=== PATIENT | male | born 1955 | race Caucasian/White ===

== ENCOUNTER 2018-05-15 11:08 | Emergency (ER) | payer OTHER ==
--- NOTE | 2018-05-15 11:16 | EDM.PDOC ---
ED HPI GENERAL MEDICAL PROBLEM - General Stated Complaint: AMB Time Seen by Provider: 05/15/18 11:12 - History of Present Illness INITIAL COMMENTS - FREE TEXT/NARRATIVE: HISTORY AND PHYSICAL: History of present illness: The patient is a [id number] male with a history of COPD diabetes hypertension hyperlipidemia and metastatic rectal cancer who presents via ambulance today for generalized profound weakness and inability to get into the car so he can return to [place] where he was 2 days ago. The patient is unable to offer much history but does say he was seen by Dr. Pratt days ago to reopen an abscess near his perirectal area and he is currently on antibiotics, Cipro and Flagyl. According to the he has had a long-standing fistula for at least 2-3 years and there is a residual suture down in that area but because the patient redeveloped an abscess Dr. Pratt opened a new area and it has been draining. The patient has had surgical intervention for his rectal cancer and has an ostomy. According to the she is not sure if he has been taking his antibiotics as they cannot find the Cipro. says that he has had generalized weakness for the last several days and it seems to be worse after seeing the doctor 2 days ago. Patient has received chemotherapy in the past which the last dose was April 16 here at our facility and started a new oral chemotherapy 2 days ago. The patient sees Dr. Hathaway locally but has not seen her recently. The patient also has a history of a DVT in his left leg for which she is on Lovenox but that was stopped several days ago so that cris Pratt could do the incision and drainage as well as to stay off of it for a few more days. The patient is not alert or oriented currently but can tell me that he did see the doctor 2 days ago and answer simple questions. The says that he has had episodic confusion for the last 1 week and she is concerned it has to do with the infection. She says that the abscess at his buttocks had been there for quite some time and he had been ignoring it and was resistant to go to [place] until 2 days ago. Patient has not been eating and according to the he performs self-care and she has not been involved with his care. She says that he has had several falls recently due to intermittent weakness and he only uses a walker and a scooter to get around. She says he has not had a fever at home and he has not had any vomiting and he has not complained of any head neck or back pain only pain at his buttocks area. She says that yesterday it took him 3 hours to get into the truck and he did not want any assistance. Today he was trying to transfer to the scooter and he could not even stand on his feet so the called ambulance to bring him here. She said she would've preferred to go to [place] but she was unable to get him into the car. Patient is currently on Lovenox subcutaneous for his DVT of his left leg but again that was stopped because of his procedure 2 days ago. It is unclear if he has resumed that. admits that he has had some falls in the recent past and he has not complained of any discomfort as a result of that. The patient had a PET scan here at our hospital on April 14 revealed mildly increasing pulmonary metastatic disease grossly stable osseous metastatic changes but a new focus of uptake within the left hepatic lobe of the liver consistent with new metastatic disease. The patient also had labs performed on April 28, CBC CMP and CEA , the first 2 were within normal limits. The CEA was 47.5. is unsure of his last tetanus shot Review of systems: As per history of present illness and below otherwise all systems reviewed and negative. Past medical history: As per history of present illness and as reviewed below otherwise noncontributory. Surgical history: As per history of present illness and as reviewed below otherwise noncontributory. Social history: No reported history of drug or alcohol abuse. Family history: As per history of present illness and as reviewed below otherwise noncontributory. Physical exam: General: Well developed well-nourished overweight male who looks older than stated age. Vital signs are noted by me. The patient is is intermittently confused on my questioning and is not sure of what year it is but he can tell me that he saw his doctor 2 days ago and had a procedure that drained an abscess. Overall the patient had dirty loathing, had grass and dirt through his clothing as well as dirt on his face, dirty underwear and had dirt and grass on his extremities consistent with not performing self-care area HEENT: Atraumatic, normocephalic, there is no evidence of any scalp defects or deformities and there is no tenderness, there are no midline step-offs in his defects of the cervical spine, pupils reactive, negative for conjunctival pallor or scleral icterus, mucous membranes tacky and there is a smell of ketones on the patient's breath, throat clear, neck supple, nontender, trachea midline. Lungs: Clear to auscultation, breath sounds equal bilaterally, chest nontender. Diminished breath sounds in the bases bilaterally but no defects deformities or tenderness or crepitus are appreciated patient has a port in the upper chest wall Heart: S1S2, regular rhythm but slightly tachycardic rate on my evaluation Abdomen: Soft, nondistended, nontender. Negative for masses or hepatosplenomegaly. NABS. The patient has an ostomy at his right mid abdomen with copious brown stool in the appliance Pelvis: Stable nontender. Genitourinary: Normal male with some pinkish ill-defined erythema at the perineal skin and scrotum but no overt lesions are seen. Rectal: At the perirectal area there is diffuse erythema and induration more notably on the left buttocks cheek. There is a string/suture seen in this region consistent with what the told me has been there for the last 2 years from an old fistula procedure. There is excoriation in this area induration and ill-defined swelling as well as discomfort. There is excoriation of the skin in the region and diffuse tenderness more at the left side. The patient is very dirty on this examination and nursing had to cleanse the area. I am unable to express any fluid or pus from any of these excoriated areas. Extremities: The patient has a right knee abrasion without defects deformities or tenderness and has a large left elbow abrasion without defects deformities or tenderness of the bony elbow. The left lower extremity is larger than the right and there is diffuse gross edema of this like consistent with his history of DVT. The foot is cooler on the left than on the right but the patient has good biphasic dorsalis pedis and posterior tibial pulses by Doppler the patient denies any tenderness to the left lower extremity the left knee or the left hip but there is some bruising at the posterior left hip and upper pelvis area without defects or deformities. There is some bruising in the same region but no tenderness. Neurovascular unremarkable. There are multiple bruises seen on the upper and lower extremities but more on the upper extremities of varying ages but there is no tenderness in any of these regions or deformities. Neuro: Awake, alert, oriented to time and place but intermittently can answer questions about recent history..The patient has profound weakness in all extremities but 2-3 throughout upper and lower extremities and the patient has diminished dorsi and plantar flexion left slightly greater than right. He can barely move in bed without assistance and is unable to transfer from cart to bed. Back: There are no midline step-offs or defects of the thoracic or lumbar spine and bruising is as described above at his left posterior hip area. Diagnostics EKG CBC CMP INR CPK UA urine culture blood cultures [address] scan of the head chest x-ray, x-rays of right knee right hip with pelvis left elbow Therapeutics: IV O2 monitor IV fluids Tdap Zosyn calcium gluconate, D50 and insulin, sodium bicarbonate Pablo catheter 1217: Discussed was discussed with Dr. Pratt at [facility] and he says that he is not surprised that Alejo is doing poorly as he has never to be taking good care of himself. He tells me that he did does open an area of induration because there was some possibility of fluctuance but he says that he likely has a larger deeper cavity or area that might be triggering sepsis that may need to be addressed depending on the family's wishes and patient's status. He says that from a surgical standpoint currently there is nothing that he can offer but I did tell him that I will be arranging for transfer for medical admission and he said he could be available as needed. He is aware I given him a dose of Zosyn and he agrees with that antibiotic choice I discussed with the and other family member at bedside the options of either transfer to [place] for admission here with hospice care. As hospice care was not and has not been discussed by any of the providers with the or with the patient she feels uncomfortable with making that decision at this point. I told her that I just wanted to give her all the options and she would prefer transfer to [place]. I do not feel that this case can be managed here at our hospital due to our limited resources and the significance of this patient's past medical history and recent events. Pablo was placed by nursing and immediately 1600 mL of urine has emerged. The Pablo was clamped off and will be reopened after some time. tells me that he did have issues with having small frequent urinations and that he discuss this when he was in [place] last time and that has not been explored as to the etiology. All lab tests have been reviewed as well as x-rays and CTs and all of this has been discussed with the family. Patient currently is in rhabdo and also has postobstructive uropathy and dehydration. There are multiple reasons for the kidney dysfunction as well as sepsis. I will discuss this case with the hospitalist at [facility] as he needs emergent transfer.We have Notified the flight team as the patient's clinical statement and findings mandate more emergent transfer and family is in agreement 1358: This case was discussed with the hospitalist at [facility], Dr. Moody who accepts the patient for care. She is aware of our treatment for the hyperkalemia with IV fluids and antibiotics and she is in agreement. All information and imaging to that hospital Critical care time excluding procedures: 45min Impression: Generalized weakness with new confusional state, dehydration , rhabdomyolysis, acute renal failure with hyperkalemia Multiple falls with multiple contusions and abrasions; postobstructive uropathy History of metastatic rectal cancer on oral chemotherapy; history of left leg DVT Definitive disposition and diagnosis as appropriate pending reevaluation and review of above. - Related Data Allergies Allergy/AdvReac Type Severity Reaction Status Date / Time No Known Allergies Allergy Verified 05/15/18 11:39 Home Meds: Home Meds Albuterol [Proair HFA] 1 inhalation IH ASDIRECTED PRN 08/23/14 [History] Metoprolol Tartrate 100 mg PO DAILY 08/23/14 [History] Tiotropium [Spiriva HandiHaler] 1 cap IH DAILY 08/23/14 [History] Albuterol [Proventil HFA] 2 puff INH ASDIRECTED 08/14/15 [History] Bevacizumab [Avastin] 25 mg IV 08/14/15 [History] Calcium Carbonate/Vitamin D3 [Os-Khai 500+D] 1 each PO BID 08/14/15 [History] Canagliflozin [Invokana] 08/14/15 [History] Canagliflozin [Invokana] 300 mg PO DAILY 08/14/15 [History] Fluticasone/Salmeterol [Advair 250-50] 2 puff INH BID 08/14/15 [History] Insulin Aspart [NovoLOG] 0 unit SUBCUT ACBED pen 08/14/15 [Rx] Liraglutide [Victoza 2-Rich] 0.6 mg SQ DAILY 08/14/15 [History] Liraglutide [Victoza 2-Rich] 1 injection INJECT DAILY 08/14/15 [History] Multivitamin [Multi-Vitamin Daily] 1 tab PO DAILY 08/14/15 [History] NS + KCl 20mEq/L [Normal Saline with 20 mEq KCl] 1,000 ml IV ASDIRECTED bag [Rx] Ondansetron [Zofran] 4 mg IVPUSH Q4H PRN #0 vial 08/14/15 [Rx] Sodium Chloride 0.9% [Normal Saline] 1,000 ml IV ASDIRECTED bag 08/14/15 [Rx] Sodium Chloride 0.9% [Normal Saline] 500 ml IV Q12H bag 08/14/15 [Rx] Sodium Chloride 0.9% [Saline Flush] 10 ml FLUSH ASDIRECTED PRN #0 syringe [Rx] Triamcinolone Acetonide [Triamcinolone Acetonide 0.025% Crm] 08/14/15 [History] Triamcinolone Acetonide [Triamcinolone Acetonide 0.025% Crm] 1 dose TOP BID [History] Vancomycin 1.5 gm IV Q12H sdv 08/14/15 [Rx] Vancomycin Pharmacy to Dose [Pharmacy to Dose - Vancomycin] 1 dose .XX ASDIRECTED each 08/14/15 [Rx] atorvaSTATin [Lipitor] 1 tab PO DAILY 08/14/15 [History] sitaGLIPtin Phos/Metformin HCl [Janumet 50-1,000 MG] 1 tab PO BID 08/14/15 [ History] sitaGLIPtin Phos/Metformin HCl [Janumet 50-1,000 MG] 1 tab PO TID 08/14/15 [ History] traMADol [Ultram] 50 mg PO Q6H PRN #0 tablet 08/14/15 [Rx] Acetaminophen [Tylenol] 500 mg PO Q4H PRN 05/15/18 [History] Potassium Gluconate [Potassium] 99 mg PO BID 05/15/18 [History] Past Medical History Cardiovascular History: Reports: Hypertension Other Gastrointestinal History: rectal CA with anal leakage Endocrine/Metabolic History: Reports: Diabetes, Type II Other Immunologic History: with lung cancer and currently on radiation therapy Other Oncologic History: Rectal CA (2007). Currently has bilateral lung and left hip tumor (tissue not bone per pt). - Past Surgical History GI Surgical History: Reports: Colostomy, Other (See Below) Musculoskeletal Surgical History: Reports: Hip Replacement ED ROS GENERAL - Review of Systems Review Of Systems: ROS reveals no pertinent complaints other than HPI. ED EXAM, GENERAL - Physical Exam Exam: See Below (see Dictation) Course - Vital Signs Last Recorded V/S: Last Vital Signs Temp 36.1 C 05/15/18 13:46 Pulse 99 05/15/18 13:46 Resp 22 H 05/15/18 13:46 BP 132/87 05/15/18 13:46 Pulse Ox 96 05/15/18 13:46 - Orders/Labs/Meds Orders: Active Orders 24 hr Category Date Time Status Cardiac Monitoring [RC] . DIRECTED Care 05/15/18 11:35 Active EKG Documentation Completion [RC] STAT Care 05/15/18 11:35 Active Oxygen Therapy, ED [RC] ASDIRECTED Care 05/15/18 11:35 Active Pulse Oximetry [RC] ASDIRECTED Care 05/15/18 11:35 Active Vaccines to be Administered [RC] PER UNIT ROUTINE Care 05/15/18 11:53 Active CULTURE BLOOD [BC] Stat Lab 05/15/18 11:56 Received CULTURE BLOOD [BC] Stat Lab 05/15/18 12:06 Received CULTURE URINE [RM] Stat Lab 05/15/18 13:14 Received UA W/MICROSCOPIC [URIN] Stat Lab 05/15/18 13:14 Ordered Sodium Chloride 0.9% [Normal Saline] 1,000 ml Med 05/15/18 13:46 Active IV STAT Sodium Chloride 0.9% [Saline Flush] Med 05/15/18 11:38 Active 10 ml FLUSH ASDIRECTED PRN Sodium Chloride 0.9% [Saline Flush] Med 05/15/18 11:38 Active 2.5 ml FLUSH ASDIRECTED PRN Blood Culture x2 Reflex Set [OM.PC] Stat Oth 05/15/18 11:36 Ordered Saline Lock Insert [OM.PC] Stat Oth 05/15/18 11:35 Ordered Medication Orders Sodium Chloride (Normal Saline) 1,000 mls @ 999 mls/hr IV STAT ONE Stop: 05/15/18 14:46 Last Admin: 05/15/18 13:55 Dose: 999 mls/hr Sodium Chloride (Saline Flush) 10 ml FLUSH ASDIRECTED PRN PRN Reason: Keep Vein Open Sodium Chloride (Saline Flush) 2.5 ml FLUSH ASDIRECTED PRN PRN Reason: Keep Vein Open Labs: Laboratory Tests 05/15/18 05/15/18 05/15/18 Range/Units 12:06 12:06 12:06 WBC 20.23 H (4.0-11.0) K/uL RBC 4.25 L (4.50-5.90) M/uL Hgb 11.6 L (13.0-17.0) g/dL Hct 35.3 L (38.0-50.0) % MCV 83.1 (80.0-98.0) fL MCH 27.3 (27.0-32.0) pg MCHC 32.9 (31.0-37.0) g/dL RDW Std Deviation 59.4 (28.0-62.0) fl RDW Coeff of Neyr 20 H (11.0-15.0) % Plt Count 343 (150-400) K/uL MPV 9.60 (7.40-12.00) fL Add Manual Diff YES Neutrophils % (Manual) 82 H (48.0-80.0) % Band Neutrophils % 12 % Lymphocytes % (Manual) 6 L (16.0-40.0) % Nucleated RBC % 0.1 /100WBC Absolute Seg Neuts 16.6 H (1.4-5.7) Band Neutrophils # 2.4 Lymphocytes # (Manual) 1.2 (0.6-2.4) Nucleated RBCs # 0 K/uL INR 1.04 Lactate (0.20-2.00) mmol/L Sodium 134 L (136-148) mmol/L Potassium 6.2 H (3.5-5.1) mmol/L Chloride 98 (98-107) mmol/L Carbon Dioxide 13.5 L (21.0-32.0) mmol/L BUN 95 H (7.0-18.0) mg/dL Creatinine 9.2 H (0.8-1.3) mg/dL Est Cr Clr Drug Dosing 8.82 mL/min Estimated GFR (MDRD) 5.9 ml/min Glucose 160 H (74-106) mg/dL Calcium 8.8 (8.5-10.1) mg/dL Total Bilirubin 0.7 (0.2-1.0) mg/dL AST 117 H (15-37) IU/L ALT 78 H (14-63) IU/L Alkaline Phosphatase 138 H (46-116) U/L Creatine Kinase 4107 H (26-308) U/L Total Protein 7.3 (6.4-8.2) g/dL Albumin 2.4 L (3.4-5.0) g/dL Globulin 4.9 H (2.0-3.5) g/dL Albumin/Globulin Ratio 0.5 L (1.3-2.8) Urine Color Urine Appearance Urine pH (5.0-8.0) Ur Specific [place] (1.001-1.035) Urine Protein (NEGATIVE) mg/dL Urine Glucose (UA) (NEGATIVE) mg/dL Urine Ketones (NEGATIVE) mg/dL Urine Occult Blood (NEGATIVE) Urine Nitrite (NEGATIVE) Urine Bilirubin (NEGATIVE) Urine Urobilinogen (<2.0) EU/dL Ur Leukocyte Esterase (NEGATIVE) Urine RBC (0-2/HPF) Urine WBC (0-5/HPF) Ur Epithelial Cells (NONE-FEW) Urine Bacteria (NEGATIVE) Fine Granular Casts (NEGATIVE) Urine Mucus (NONE-MOD) Ketones (NEG) 05/15/18 05/15/18 05/15/18 Range/Units 12:06 12:06 13:14 WBC (4.0-11.0) K/uL RBC (4.50-5.90) M/uL Hgb (13.0-17.0) g/dL Hct (38.0-50.0) % MCV (80.0-98.0) fL MCH (27.0-32.0) pg MCHC (31.0-37.0) g/dL RDW Std Deviation (28.0-62.0) fl RDW Coeff of Nery (11.0-15.0) % Plt Count (150-400) K/uL MPV (7.40-12.00) fL Add Manual Diff Neutrophils % (Manual) (48.0-80.0) % Band Neutrophils % % Lymphocytes % (Manual) (16.0-40.0) % Nucleated RBC % /100WBC Absolute Seg Neuts (1.4-5.7) Band Neutrophils # Lymphocytes # (Manual) (0.6-2.4) Nucleated RBCs # K/uL INR Lactate 2.0 (0.20-2.00) mmol/L Sodium (136-148) mmol/L Potassium (3.5-5.1) mmol/L Chloride (98-107) mmol/L Carbon Dioxide (21.0-32.0) mmol/L BUN (7.0-18.0) mg/dL Creatinine (0.8-1.3) mg/dL Est Cr Clr Drug Dosing mL/min Estimated GFR (MDRD) ml/min Glucose (74-106) mg/dL Calcium (8.5-10.1) mg/dL Total Bilirubin (0.2-1.0) mg/dL AST (15-37) IU/L ALT (14-63) IU/L Alkaline Phosphatase (46-116) U/L Creatine Kinase (26-308) U/L Total Protein (6.4-8.2) g/dL Albumin (3.4-5.0) g/dL Globulin (2.0-3.5) g/dL Albumin/Globulin Ratio (1.3-2.8) Urine Color YELLOW Urine Appearance CLOUDY Urine pH 5.5 (5.0-8.0) Ur Specific [place] >= 1.030 (1.001-1.035) Urine Protein TRACE (NEGATIVE) mg/dL Urine Glucose (UA) 100 H (NEGATIVE) mg/dL Urine Ketones TRACE H (NEGATIVE) mg/dL Urine Occult Blood LARGE H (NEGATIVE) Urine Nitrite NEGATIVE (NEGATIVE) Urine Bilirubin SMALL H (NEGATIVE) Urine Urobilinogen 0.2 (<2.0) EU/dL Ur Leukocyte Esterase TRACE (NEGATIVE) Urine RBC 6-7 (0-2/HPF) Urine WBC 4-5 (0-5/HPF) Ur Epithelial Cells MODERATE (NONE-FEW) Urine Bacteria FEW (NEGATIVE) Fine Granular Casts 1-2 (NEGATIVE) Urine Mucus HEAVY (NONE-MOD) Ketones SMALL H (NEG) Meds: Medications Generic Name Dose Route Start Last Admin Trade Name Freq PRN Reason Stop Dose Admin Sodium Chloride 1,000 mls @ 999 mls/hr 05/15/18 13:46 05/15/18 13:55 Normal Saline IV 05/15/18 14:46 999 mls/hr STAT ONE Administration Sodium Chloride 10 ml 05/15/18 11:38 Saline Flush FLUSH ASDIRECTED PRN Keep Vein Open Sodium Chloride 2.5 ml 05/15/18 11:38 Saline Flush FLUSH ASDIRECTED PRN Keep Vein Open Discontinued Medications Generic Name Dose Route Start Last Admin Trade Name Freq PRN Reason Stop Dose Admin Calcium Gluconate 1 gm 05/15/18 13:46 05/15/18 14:00 Calcium Gluconate IVPUSH 05/15/18 13:47 1 gm ONETIME ONE Administration Dextrose/Water 50 ml 05/15/18 13:48 05/15/18 14:00 Dextrose 50% In Water IVPUSH 05/15/18 13:49 50 ml ONETIME ONE Administration Diphtheria/Tetanus/Acell Pertussis 0.5 ml 05/15/18 11:53 05/15/18 13:34 Adacel IM 05/15/18 11:54 0.5 ml .ONCE ONE Administration Piperacillin Sod/Tazobactam 100 mls @ 100 mls/hr 05/15/18 11:38 05/15/18 12: 00 Sod 4.5 gm/ Sodium Chloride IV 05/15/18 12:37 100 mls/hr ONETIME ONE Administration Sodium Chloride 1,000 mls @ 999 mls/hr 05/15/18 11:38 05/15/18 12:00 Normal Saline IV 05/15/18 12:38 999 mls/hr STAT ONE Administration Insulin Human Regular 10 unit 05/15/18 13:48 05/15/18 14:00 Novolin R IVPUSH 05/15/18 13:49 10 units ONETIME ONE Administration Protocol Sodium Bicarbonate 50 meq 05/15/18 13:48 05/15/18 14:00 Sodium Bicarbonate 8.4% IVPUSH 05/15/18 13:49 50 meq ONETIME ONE Administration Departure - Departure Time of Disposition: 14:13 Disposition: DC/Tfer to Acute Hospital 02 Condition: Fair Clinical Impression: Hyperkalemia, Metastasis from rectal cancer Sepsis Qualifiers: Sepsis type: sepsis due to unspecified organism Qualified Code(s): A41.9 - Sepsis, unspecified organism Rhabdomyolysis Qualifiers: Rhabdomyolysis type: traumatic Encounter type: initial encounter Qualified Code (s): T79.6XXA - Traumatic ischemia of muscle, initial encounter Acute renal failure Qualifiers: Acute renal failure type: unspecified Qualified Code(s): N17.9 - Acute kidney failure, unspecified - Discharge Information Referrals: PCP,None [Primary Care Provider] - - My Orders Last 24 Hours: My Active Orders 05/15/18 11:35 Cardiac Monitoring [RC] . DIRECTED EKG Documentation Completion [RC] STAT Oxygen Therapy, ED [RC] ASDIRECTED Pulse Oximetry [RC] ASDIRECTED Saline Lock Insert [OM.PC] Stat 05/15/18 11:36 Blood Culture x2 Reflex Set [OM.PC] Stat 05/15/18 11:38 Sodium Chloride 0.9% [Saline Flush] 10 ml FLUSH ASDIRECTED PRN Sodium Chloride 0.9% [Saline Flush] 2.5 ml FLUSH ASDIRECTED PRN 05/15/18 11:53 Vaccines to be Administered [RC] PER UNIT ROUTINE 05/15/18 11:56 CULTURE BLOOD [BC] Stat 05/15/18 12:06 CULTURE BLOOD [BC] Stat 05/15/18 13:14 CULTURE URINE [RM] Stat UA W/MICROSCOPIC [URIN] Stat 05/15/18 13:46 Sodium Chloride 0.9% [Normal Saline] 1,000 ml IV STAT - Assessment/Plan Last 24 Hours: My Active Orders 05/15/18 11:35 Cardiac Monitoring [RC] . DIRECTED EKG Documentation Completion [RC] STAT Oxygen Therapy, ED [RC] ASDIRECTED Pulse Oximetry [RC] ASDIRECTED Saline Lock Insert [OM.PC] Stat 05/15/18 11:36 Blood Culture x2 Reflex Set [OM.PC] Stat 05/15/18 11:38 Sodium Chloride 0.9% [Saline Flush] 10 ml FLUSH ASDIRECTED PRN Sodium Chloride 0.9% [Saline Flush] 2.5 ml FLUSH ASDIRECTED PRN 05/15/18 11:53 Vaccines to be Administered [RC] PER UNIT ROUTINE 05/15/18 11:56 CULTURE BLOOD [BC] Stat 05/15/18 12:06 CULTURE BLOOD [BC] Stat 05/15/18 13:14 CULTURE URINE [RM] Stat UA W/MICROSCOPIC [URIN] Stat 05/15/18 13:46 Sodium Chloride 0.9% [Normal Saline] 1,000 ml IV STAT
[2018-05-15] MEDS ORDERED: Piperacillin/Tazobactam 4.5 GM in Sodium Chloride 0.9% 100 ML IV ONE (11:38)
[2018-05-15] MEDS ORDERED: Sodium Chloride 0.9% 1,000 ML IV ONE ×2 (11:38→13:46)
[2018-05-15] MEDS ORDERED: Sodium Chloride 0.9% 10 ML Syringe FLUSH PRN (11:38)
[2018-05-15] MEDS ORDERED: Sodium Chloride 0.9% 2.5 ML Syringe FLUSH PRN (11:38)
[2018-05-15] MEDS ORDERED: Diphtheria,Pertussis(Acell),Tetanus Vaccine 0.5 ML Syringe IM ONE (11:53)
--- NOTE | 2018-05-15 13:09 | CT ---
EXAMINATION: Non contrast CT head. Coronal and sagittal reformats. HISTORY: Pain FINDINGS: No evidence of intra or extra axial hemorrhage, mass, midline shift, hydrocephalus or edema. No hypoattenuation changes in the major vascular territories to suggest acute infarct. No abnormal intracranial calcifications are detected. No evidence of substantial vascular calcificat ions. Paranasal sinuses and mastoid air cells are well aerated without substantial findings, however modera tely obscured secondary to motion. Pituitary fossa appears unremarkable. Calvarium is intact. No evidence of skull fracture. IMPRESSION: No acute intracranial findings.
--- NOTE | 2018-05-15 13:20 | CR ---
EXAMINATION: Left elbow HISTORY: Trauma COMPARISON: None TECHNIQUE: 2 views FINDINGS/IMPRESSION: There is no acute osseous abnormality, dislocation, or fracture. Bone mineraliza tion and joint spaces are preserved. No soft tissue swelling or elbow joint effusion.
--- NOTE | 2018-05-15 13:21 | CR ---
EXAMINATION: Portable chest radiograph. HISTORY: Shortness of breath. FINDINGS: The trachea is midline. The cardiomediastinal silhouette is within normal limits. Trace left basilar atelectasis and/or infiltrate. There is a right-sided portacatheter noted. Osseous structures appear unremarkable. IMPRESSION: Trace left basilar atelectasis and/or infiltrate.
--- NOTE | 2018-05-15 13:28 | CR ---
EXAMINATION: Pelvis and left hip HISTORY: Trauma COMPARISON: 09/26/2017 TECHNIQUE: AP pelvis and 2 views of the left hip FINDINGS: There is advanced joint space narrowing within the right hip subchondral sclerosis and cyst ic change. Left total hip hardware is noted stable in position and alignment. SI joints are symmetric . Iliopectineal lines are intact. Moderate degenerative changes noted within the lower lumbar spine. IMPRESSION: 1. Stable left total hip hardware 2. Advanced degenerative changes noted within the right hip.
--- NOTE | 2018-05-15 13:36 | CR ---
EXAMINATION: Right knee HISTORY: Pain COMPARISON: None TECHNIQUE: 3 views FINDINGS/IMPRESSION: There is no acute osseous abnormality, dislocation, or fracture. Bone mineraliza tion and joint spaces are preserved. No soft tissue swelling or joint effusion.
[2018-05-15] MEDS ORDERED: Calcium Gluconate 10% 1 GM/10 ML SDV IVPUSH ONE (13:46)
[2018-05-15 13:47] VITALS: BP 132/87
[2018-05-15] MEDS ORDERED: 50% Dextrose in Water 50 ML Syringe IVPUSH ONE (13:48)
[2018-05-15] MEDS ORDERED: Sodium Bicarbonate 8.4% 50 MEQ/50 ML Syringe IVPUSH ONE (13:48)
[2018-05-15] MEDS ORDERED: Insulin Regular, Human 100 Units/ML 10 ML Vial IVPUSH ONE (13:48)
== END 2018-05-15 15:05 ==
LOC: MW.ED 11:08
DX: A41.9 Sepsis, unspecified organism (principal); T79.6XXA Traumatic ischemia of muscle, initial encounter; C78.5 Secondary malignant neoplasm of large intestine and rectum; J44.9 Chronic obstructive pulmonary disease, unspecified; E86.0 Dehydration; N17.9 Acute kidney failure, unspecified; E87.5 Hyperkalemia; E11.9 Type 2 diabetes mellitus without complications; I10 Essential (primary) hypertension; E78.5 Hyperlipidemia, unspecified; Z79.899 Other long term (current) drug therapy; R41.0 Disorientation, unspecified; Z79.4 Long term (current) use of insulin; Z91.81 History of falling
CPT/HCPCS: 36415; 70450; 71045; 73070; 73502; 73562; 80053; 81001; 82009; 82550; 83605; 85025; 85610; 87040; 87086; 90471; 90715; 93005; 96361; 96365; 96374; 96375; 99285; J0610; J2543; J7030; J7040; J7060; J1815-GY

== ENCOUNTER 2018-10-28 21:32 | Inpatient (IN) | payer OTHER ==
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
[2018-10-28] MEDS ORDERED: Non-Formulary Medication 1 Each (Fentanyl [Fentanyl] 1 PATCH) TD PRN (23:25)
[2018-10-28] MEDS ORDERED: Non-Formulary Medication 1 Each (Insulin Degludec [Tresiba] 30 UNITS) INJECT SCH (23:30)
--- NOTE | 2018-10-28 23:53 | PCM.HP ---
H&P History of Present Illness - General Date of Service: 10/28/18 Admit Problem/Dx: Admission Diagnosis/Problem Admission Diagnosis/Problem UTI (urinary tract infection), uncomplicated - History of Present Illness Initial Comments - Free Text/Narative: 63 yo male with pmh of colorectal cancer diagnosed in 2004 with reoccurrence in 2014 with tumor invasion into the bladder and metastasis to the spine, liver and lung. 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 Patient also has a history of DM and DVT. Patient called EMS due to the past three days he has been unable to get out of bed. He reports fatigue but denies any fevers, chills , shortness of breath, cough, or abdominal pain. - Related Data Allergies/Adverse Reactions: Allergies Allergy/AdvReac Type Severity Reaction Status Date / Time morphine Allergy Other Verified 10/29/18 02:09 Home Medications: Home Meds Acetaminophen 500 mg PO ASDIRECTED 10/28/18 [History] Empagliflozin [Jardiance] 25 mg PO DAILY 10/28/18 [History] Enoxaparin [Lovenox] 100 mg SUBCUT Q12H 10/28/18 [History] Finasteride 5 mg PO DAILY 10/28/18 [History] Fluticasone/Umeclidin/Vilanter [Trelegy Ellipta 100-62.5-25 MCG] 1 inh PO DAILY 10/28/18 [History] Gabapentin [Neurontin] 300 mg PO BID 10/28/18 [History] HYDROmorphone [Dilaudid] 2 mg PO Q4H PRN 10/28/18 [History] Insulin Degludec [Tresiba] 30 units INJECT DAILY 10/28/18 [History] Insulin Lispro [Humalog] See Protocol SUBCUT QID 10/28/18 [History] Potassium Bicarb/Potassium Chl [Potassium Chloride] 25 meq PO DAILY 10/28/18 [ History] Tamsulosin [Flomax] 0.4 mg PO DAILY 10/28/18 [History] Zaleplon 10 mg PO BEDTIME PRN 10/28/18 [History] atorvaSTATin [Lipitor] 40 mg PO DAILY 10/28/18 [History] fentaNYL [Fentanyl] 100 patch TD Q72H 10/28/18 [History] Past Medical History HEENT History: Reports: Impaired Vision Cardiovascular History: Reports: Hypertension Other Gastrointestinal History: rectal CA with anal leakage Endocrine/Metabolic History: Reports: Diabetes, Type II Hematologic History: Reports: Anticoagulation Therapy Immunologic History: Reports: Other (See Below) Other Immunologic History: with lung cancer and currently on radiation therapy Oncologic (Cancer) History: Reports: Colon, Lung, Other (See Below) Other Oncologic History: Rectal CA (2007). Currently has bilateral lung and left hip tumor (tissue not bone per pt). - Infectious Disease History Infectious Disease History: Reports: None - Past Surgical History GI Surgical History: Reports: Colostomy, Other (See Below) Musculoskeletal Surgical History: Reports: Hip Replacement Social & Family History - Family History Family Medical History: Noncontributory - Tobacco Use Smoking Status *Q: Unknown Ever Smoked - Caffeine Use Caffeine Use: Reports: Coffee - Recreational Drug Use Recreational Drug Use: No H&P Review of Systems - Review of Systems: Review Of Systems: ROS reveals no pertinent complaints other than HPI. Exam - Exam Exam: See Below - Vital Signs Vital Signs: Last Vital Signs Temp 36.3 C 10/28/18 21:38 Pulse 109 H 10/28/18 21:38 Resp 18 10/28/18 21:38 BP 135/82 10/28/18 21:38 Pulse Ox 97 10/28/18 21:38 Weight: 127.006 kg - Exam General: Alert HEENT: Hearing Intact Lungs: Clear to Auscultation, Normal Respiratory Effort Cardiovascular: Regular Rate, Regular Rhythm GI/Abdominal Exam: Soft, Non-Tender Rectal (Males) Exam: Other (large deep sacral ulcer) Extremities: Non-Tender, No Pedal Edema Neurological: Other (strength 1/5 both legs). No: Focal Deficit - Patient Data Lab Results Last 24 hrs: Laboratory Results - last 24 hr 10/28/18 10/28/18 10/28/18 Range/Units 22:20 22:20 22:45 WBC 18.22 H (4.0-11.0) K/uL RBC 5.30 (4.50-5.90) M/uL Hgb 10.7 L (13.0-17.0) g/dL Hct 34.0 L (38.0-50.0) % MCV 64.2 L (80.0-98.0) fL MCH 20.2 L (27.0-32.0) pg MCHC 31.5 (31.0-37.0) g/dL RDW Std Deviation 46.9 (28.0-62.0) fl RDW Coeff of Nery 21 H (11.0-15.0) % Plt Count 297 (150-400) K/uL MPV 8.10 (7.40-12.00) fL Add Manual Diff YES Neutrophils % (Manual) 82 H (48.0-80.0) % Band Neutrophils % 8 % Lymphocytes % (Manual) 5 L (16.0-40.0) % Monocytes % (Manual) 4 (0.0-15.0) % Myelocytes % 1 % Nucleated RBC % 0.0 /100WBC Absolute Seg Neuts 14.9 H (1.4-5.7) Band Neutrophils # 1.5 Lymphocytes # (Manual) 0.9 (0.6-2.4) Monocytes # (Manual) 0.7 (0.0-0.8) Absolute Myelocytes 0.2 Nucleated RBCs # 0 K/uL Sodium 127 L (136-148) mmol/L Potassium 4.7 (3.5-5.1) mmol/L Chloride 96 L (98-107) mmol/L Carbon Dioxide 15.9 L (21.0-32.0) mmol/L BUN 41 H (7.0-18.0) mg/dL Creatinine 1.5 H (0.8-1.3) mg/dL Est Cr Clr Drug Dosing 51.72 mL/min Estimated GFR (MDRD) 47.6 ml/min Glucose 78 (74-106) mg/dL Calcium 9.1 (8.5-10.1) mg/dL Total Bilirubin 1.2 H (0.2-1.0) mg/dL AST 186 H (15-37) IU/L ALT 60 (14-63) IU/L Alkaline Phosphatase 1132 H (46-116) U/L Total Protein 6.5 (6.4-8.2) g/dL Albumin 2.0 L (3.4-5.0) g/dL Globulin 4.5 H (2.6-4.0) g/dL Albumin/Globulin Ratio 0.4 L (0.9-1.6) Urine Color YELLOW Urine Appearance CLOUDY Urine pH 5.0 (5.0-8.0) Ur Specific [place] 1.020 (1.001-1.035) Urine Protein 100 H (NEGATIVE) mg/dL Urine Glucose (UA) 100 H (NEGATIVE) mg/dL Urine Ketones TRACE H (NEGATIVE) mg/dL Urine Occult Blood LARGE H (NEGATIVE) Urine Nitrite POSITIVE H (NEGATIVE) Urine Bilirubin MODERATE H (NEGATIVE) Urine Urobilinogen 0.2 (<2.0) EU/dL Ur Leukocyte Esterase MODERATE H (NEGATIVE) Urine RBC TOO NUMEROUS TO CT (0-2/HPF) Urine WBC 70-80 (0-5/HPF) Ur Epithelial Cells OCCASIONAL (NONE-FEW) Urine Bacteria FEW (NEGATIVE) Result Diagrams: 10/31/18 05:15 10/31/18 05:15 Problem List Initiated/Reviewed/Updated: Yes Orders Last 24hrs: Active Orders 24 hr Category Date Time Status Patient Status [ADT] Stat ADT 10/28/18 23:28 Active Antiembolic Devices [RC] PER UNIT ROUTINE Care 10/28/18 23:30 Ordered Pablo Catheter Insertion [Insert Urinary Catheter] [OM. Care 10/28/18 22:30 Ordered PC] Q24H Oxygen Therapy [RC] PRN Care 10/28/18 23:28 Ordered Up ad Danielle [RC] ASDIRECTED Care 10/28/18 23:28 Ordered Urinary Catheter Assessment [RC] ASDIRECTED Care 10/28/18 22:25 Active VTE/DVT Education [RC] PER UNIT ROUTINE Care 10/28/18 23:28 Ordered Vital Signs [RC] Q4H Care 10/28/18 23:28 Ordered PT Evaluation and Treatment [CONS] Stat Cons 10/28/18 23:31 Ordered [place] [employer] Diet [DIET] Diet 10/28/18 Breakfast Ordered CBC WITH AUTO DIFF [HEME] AM Lab 10/29/18 05:11 Ordered CBC WITH AUTO DIFF [HEME] AM Lab 10/30/18 05:11 Ordered COMPREHENSIVE METABOLIC PN,CMP [CHEM] AM Lab 10/29/18 05:11 Ordered COMPREHENSIVE METABOLIC PN,CMP [CHEM] AM Lab 10/30/18 05:11 Ordered CULTURE BLOOD [BC] Stat Lab 10/28/18 23:25 Ordered CULTURE BLOOD [BC] Stat Lab 10/28/18 23:25 Ordered CULTURE URINE [RM] Stat Lab 10/28/18 22:45 Received VANCOMYCIN TROUGH [CHEM] Timed Lab 10/30/18 22:45 Ordered Enoxaparin [Lovenox] Med 10/29/18 09:00 Ordered 100 mg .XX BID Fluticasone/Umeclidin/Vilanter Med 10/29/18 09:00 Ordered 1 inh PO DAILY Gabapentin [Neurontin] Med 10/29/18 09:00 Ordered 300 mg PO DAILY HYDROmorphone [Dilaudid] Med 10/28/18 23:25 Ordered 2 mg PO Q4H PRN Insulin Aspart [NovoLOG] Med 10/29/18 07:30 Ordered See Protocol SUBCUT TIDAC Insulin Degludec [Tresiba] Med 10/28/18 23:30 Ordered 30 units INJECT ASDIRECTED Levofloxacin/Dextrose 5%-Water [Levaquin in D5W 750 MG/ Med 10/28/18 23:30 Ordered 150 ML] 750 mg Premix Bag 1 bag IV Q24H Pharmacy to Dose - Vancomycin Med 10/28/18 23:30 Ordered 1 dose .XX ASDIRECTED Vancomycin 1.5 gm Med 10/28/18 23:45 Active Sodium Chloride 0.9% [Normal Saline] 500 ml IV Q12H atorvaSTATin [Lipitor] Med 10/29/18 09:00 Ordered 40 mg PO DAILY fentaNYL [Fentanyl] Med 10/28/18 23:25 Ordered 1 patch TD Q72H PRN Blood Culture x2 Reflex Set [OM.PC] Stat Oth 10/28/18 23:24 Ordered Sequential Compression Device [OM.PC] Per Unit Routine Oth 10/28/18 23:29 Ordered Resuscitation Status Routine Resus Stat 10/28/18 23:28 Ordered Medication Orders Atorvastatin Calcium (Lipitor) 40 mg PO DAILY [facility] Enoxaparin Sodium (Lovenox) 100 mg .XX BID [facility] Gabapentin (Neurontin) 300 mg PO DAILY [facility] Hydromorphone HCl (Dilaudid) 2 mg PO Q4H PRN PRN Reason: Pain Levofloxacin/Dextrose 750 mg/ (Premix) 150 mls @ 100 mls/hr IV Q24H [facility] Vancomycin HCl 1.5 gm/ Sodium (Chloride) 500 mls @ 333.333 mls/hr IV Q12H [facility] Insulin Aspart (Novolog) 0 unit SUBCUT TIDAC [facility]; Protocol Non-Formulary Medication (Fentanyl [Fentanyl]) 1 patch TD Q72H PRN PRN Reason: Pain Non-Formulary Medication (Fluticasone/Umeclidin/Vilanter) 1 inh PO DAILY [facility] Non-Formulary Medication (Insulin Degludec [Tresiba]) 30 units INJECT ASDIRECTED [facility] Vancomycin HCl (Pharmacy To Dose - Vancomycin) 1 dose .XX ASDIRECTED [facility] Assessment/Plan Comment:: 63 yo male with metastatic rectal cancer admitted for UTI. Will treat with IV fluid rescucitation and antibiotics.
[2018-10-29] MEDS: Levofloxacin/Dextrose 5%-Water 750 MG in Premix Bag 1 BAG IV SCH ×2 (00:08→22:30)
[2018-10-29] MEDS: Sodium Chloride 0.9% 1,000 ML IV SCH ×3 (00:14→19:34)
[2018-10-29] MEDS: HYDROmorphone 2 MG Tab PO PRN ×5 (02:46→22:27)
[2018-10-29] MEDS: fentaNYL 100 MCG/HR Transdermal Patch TRDERM SCH (02:47)
[2018-10-29] MEDS: Vancomycin 1.5 GM in Sodium Chloride 0.9% 500 ML IV SCH ×2 (03:00→12:02)
[2018-10-29] MEDS: Insulin Aspart 100 Units/ML 3 ML Pen SUBCUT SCH ×3 (06:54→19:35)
--- NOTE | 2018-10-29 08:22 | PCM.PN ---
- General Info Date of Service: 10/29/18 Admission Dx/Problem (Free Text): Admission Diagnosis/Problem Admission Diagnosis/Problem UTI (urinary tract infection), uncomplicated Subjective Update: Reports feeling better than when he arrived. No chest pain or SOB. reports some diarrhea in colostomy bag. No fever. Pain is tolerable. Functional Status: Reports: Pain Controlled, Tolerating Diet - Review of Systems General: Reports: Weakness (general), Malaise. Denies: Fever Pulmonary: Reports: No Symptoms. Denies: Shortness of Breath, Cough, Sputum Cardiovascular: Reports: No Symptoms. Denies: Chest Pain Gastrointestinal: Reports: Diarrhea. Denies: Abdominal Pain, Nausea, Vomiting Genitourinary: Reports: No Symptoms Musculoskeletal: Reports: No Symptoms Skin: Reports: No Symptoms Neurological: Reports: No Symptoms Psychiatric: Reports: No Symptoms - Patient Data Vitals - Most Recent: Last Vital Signs Temp 97.1 F 10/29/18 08:11 Pulse 94 10/29/18 08:11 Resp 16 10/29/18 08:11 BP 104/56 L 10/29/18 08:11 Pulse Ox 96 10/29/18 08:11 Weight - Most Recent: 78 kg I&O - Last 24 Hours: Intake & Output 10/28/18 10/29/18 10/29/18 22:59 06:59 14:59 Intake Total 1371 Output Total 350 Balance 1021 Lab Results Last 24 Hours: Laboratory Results - last 24 hr 10/28/18 10/28/18 10/28/18 Range/Units 22:20 22:20 22:45 WBC 18.22 H (4.0-11.0) K/uL RBC 5.30 (4.50-5.90) M/uL Hgb 10.7 L (13.0-17.0) g/dL Hct 34.0 L (38.0-50.0) % MCV 64.2 L (80.0-98.0) fL MCH 20.2 L (27.0-32.0) pg MCHC 31.5 (31.0-37.0) g/dL RDW Std Deviation 46.9 (28.0-62.0) fl RDW Coeff of Nery 21 H (11.0-15.0) % Plt Count 297 (150-400) K/uL MPV 8.10 (7.40-12.00) fL Add Manual Diff YES Neutrophils % (Manual) 82 H (48.0-80.0) % Band Neutrophils % 8 % Lymphocytes % (Manual) 5 L (16.0-40.0) % Monocytes % (Manual) 4 (0.0-15.0) % Eosinophils % (Manual) (0.0-7.0) % Myelocytes % 1 % Nucleated RBC % 0.0 /100WBC Absolute Seg Neuts 14.9 H (1.4-5.7) Band Neutrophils # 1.5 Lymphocytes # (Manual) 0.9 (0.6-2.4) Monocytes # (Manual) 0.7 (0.0-0.8) Eosinophils # (Manual) (0.0-0.7) Absolute Myelocytes 0.2 Nucleated RBCs # 0 K/uL Sodium 127 L (136-148) mmol/L Potassium 4.7 (3.5-5.1) mmol/L Chloride 96 L (98-107) mmol/L Carbon Dioxide 15.9 L (21.0-32.0) mmol/L BUN 41 H (7.0-18.0) mg/dL Creatinine 1.5 H (0.8-1.3) mg/dL Est Cr Clr Drug Dosing 51.72 mL/min Estimated GFR (MDRD) 47.6 ml/min Glucose 78 (74-106) mg/dL POC Glucose (60-110) mg/dL Calcium 9.1 (8.5-10.1) mg/dL Total Bilirubin 1.2 H (0.2-1.0) mg/dL AST 186 H (15-37) IU/L ALT 60 (14-63) IU/L Alkaline Phosphatase 1132 H (46-116) U/L Total Protein 6.5 (6.4-8.2) g/dL Albumin 2.0 L (3.4-5.0) g/dL Globulin 4.5 H (2.6-4.0) g/dL Albumin/Globulin Ratio 0.4 L (0.9-1.6) Urine Color YELLOW Urine Appearance CLOUDY Urine pH 5.0 (5.0-8.0) Ur Specific Ute 1.020 (1.001-1.035) Urine Protein 100 H (NEGATIVE) mg/dL Urine Glucose (UA) 100 H (NEGATIVE) mg/dL Urine Ketones TRACE H (NEGATIVE) mg/dL Urine Occult Blood LARGE H (NEGATIVE) Urine Nitrite POSITIVE H (NEGATIVE) Urine Bilirubin MODERATE H (NEGATIVE) Urine Urobilinogen 0.2 (<2.0) EU/dL Ur Leukocyte Esterase MODERATE H (NEGATIVE) Urine RBC TOO NUMEROUS TO CT (0-2/HPF) Urine WBC 70-80 (0-5/HPF) Ur Epithelial Cells OCCASIONAL (NONE-FEW) Urine Bacteria FEW (NEGATIVE) 10/29/18 10/29/18 10/29/18 Range/Units 05:13 05:13 06:40 WBC 16.13 H (4.0-11.0) K/uL RBC 4.52 (4.50-5.90) M/uL Hgb 9.0 L (13.0-17.0) g/dL Hct 29.0 L (38.0-50.0) % MCV 64.2 L (80.0-98.0) fL MCH 19.9 L (27.0-32.0) pg MCHC 31.0 (31.0-37.0) g/dL RDW Std Deviation 46.8 (28.0-62.0) fl RDW Coeff of Nery 21 H (11.0-15.0) % Plt Count 170 (150-400) K/uL MPV 8.70 (7.40-12.00) fL Add Manual Diff YES Neutrophils % (Manual) 89 H (48.0-80.0) % Band Neutrophils % 4 % Lymphocytes % (Manual) 3 L (16.0-40.0) % Monocytes % (Manual) 3 (0.0-15.0) % Eosinophils % (Manual) 1 (0.0-7.0) % Myelocytes % % Nucleated RBC % 0.0 /100WBC Absolute Seg Neuts 14.4 H (1.4-5.7) Band Neutrophils # 0.6 Lymphocytes # (Manual) 0.5 L (0.6-2.4) Monocytes # (Manual) 0.5 (0.0-0.8) Eosinophils # (Manual) 0.2 (0.0-0.7) Absolute Myelocytes Nucleated RBCs # 0 K/uL Sodium 126 L (136-148) mmol/L Potassium 4.4 (3.5-5.1) mmol/L Chloride 96 L (98-107) mmol/L Carbon Dioxide 15.9 L (21.0-32.0) mmol/L BUN 39 H (7.0-18.0) mg/dL Creatinine 1.4 H (0.8-1.3) mg/dL Est Cr Clr Drug Dosing 50.00 mL/min Estimated GFR (MDRD) 51.5 ml/min Glucose 65 L (74-106) mg/dL POC Glucose 68 (60-110) mg/dL Calcium 8.2 L (8.5-10.1) mg/dL Total Bilirubin 1.0 (0.2-1.0) mg/dL AST 150 H (15-37) IU/L ALT 47 (14-63) IU/L Alkaline Phosphatase 888 H (46-116) U/L Total Protein 5.4 L (6.4-8.2) g/dL Albumin 1.6 L (3.4-5.0) g/dL Globulin 3.8 (2.6-4.0) g/dL Albumin/Globulin Ratio 0.4 L (0.9-1.6) Urine Color Urine Appearance Urine pH (5.0-8.0) Ur Specific Ute (1.001-1.035) Urine Protein (NEGATIVE) mg/dL Urine Glucose (UA) (NEGATIVE) mg/dL Urine Ketones (NEGATIVE) mg/dL Urine Occult Blood (NEGATIVE) Urine Nitrite (NEGATIVE) Urine Bilirubin (NEGATIVE) Urine Urobilinogen (<2.0) EU/dL Ur Leukocyte Esterase (NEGATIVE) Urine RBC (0-2/HPF) Urine WBC (0-5/HPF) Ur Epithelial Cells (NONE-FEW) Urine Bacteria (NEGATIVE) Med Orders - Current: Current Medications Atorvastatin Calcium (Lipitor) 40 mg PO DAILY [facility] Enoxaparin Sodium (Lovenox) 80 mg SUBCUT Q12H [facility] Fentanyl (Duragesic) 100 mcg TRDERM Q72H [facility] Last Admin: 10/29/18 02:47 Dose: 100 mcg Gabapentin (Neurontin) 300 mg PO DAILY [facility] Hydromorphone HCl (Dilaudid) 2 mg PO Q4H PRN PRN Reason: Pain Last Admin: 10/29/18 07:00 Dose: 2 mg Levofloxacin/Dextrose 750 mg/ (Premix) 150 mls @ 100 mls/hr IV Q24H [facility] Last Admin: 10/29/18 00:08 Dose: 100 mls/hr Vancomycin HCl 1.5 gm/ Sodium (Chloride) 500 mls @ 333.333 mls/hr IV Q12H [facility] Last Admin: 10/29/18 03:00 Dose: 333.333 mls/hr Sodium Chloride (Normal Saline) 1,000 mls @ 125 mls/hr IV ASDIRECTED [facility] Last Admin: 10/29/18 00:14 Dose: 125 mls/hr Insulin Aspart (Novolog) 0 unit SUBCUT TIDAC [facility]; Protocol Last Admin: 10/29/18 06:54 Dose: Not Given Trelegy Ellipta 1 each PO DAILY [facility] Tresiba 30 each SUBCUT DAILY [facility] Vancomycin HCl (Pharmacy To Dose - Vancomycin) 1 dose .XX ASDIRECTED [facility] Discontinued Medications Non-Formulary Medication (Fentanyl [Fentanyl]) 1 patch TD Q72H PRN PRN Reason: Pain Non-Formulary Medication (Insulin Degludec [Tresiba]) 30 units INJECT ASDIRECTED [facility] - Exam General: Alert, Oriented, Cooperative, No Acute Distress Neck: Supple Lungs: Clear to Auscultation, Normal Respiratory Effort Cardiovascular: Regular Rate GI/Abdominal Exam: Normal Bowel Sounds, Soft, Non-Tender, Other (colostomy noted with diarrhea, green in color.) Wound/Incisions: Decubitis (stage 4 sacral decubitius with bone exposure. Very clean wound. no necrotic tissue no purulent drainage. pink wound bed. ) Neurological: No New Focal Deficit Psy/Mental Status: Alert, Normal Affect, Normal Mood - Problem List & Annotations (1) UTI (urinary tract infection) SNOMED Code(s): 02350865 Code(s): N39.0 - URINARY TRACT INFECTION, SITE NOT SPECIFIED Status: Acute Current Visit: Yes Qualifiers: Urinary tract infection type: catheter-associated UTI Indwelling urinary catheter type: indwelling urethral catheter Encounter type: initial encounter Qualified Code(s): T83.511A - Infection and inflammatory reaction due to indwelling urethral catheter, initial encounter; N39.0 - Urinary tract infection , site not specified (2) TRE (acute kidney injury) SNOMED Code(s): 20814484 Code(s): N17.9 - ACUTE KIDNEY FAILURE, UNSPECIFIED Status: Acute Current Visit: Yes (3) Hyponatremia SNOMED Code(s): 18538761 Code(s): E87.1 - HYPO-OSMOLALITY AND HYPONATREMIA Status: Acute Current Visit: Yes (4) Metastatic cancer SNOMED Code(s): 381379394 Code(s): C80.1 - MALIGNANT (PRIMARY) NEOPLASM, UNSPECIFIED Status: Chronic Priority: Medium Current Visit: Yes (5) COPD (chronic obstructive pulmonary disease) SNOMED Code(s): 90481697 Code(s): J44.9 - CHRONIC OBSTRUCTIVE PULMONARY DISEASE, UNSPECIFIED Status : Chronic Current Visit: No (6) HLD (hyperlipidemia) SNOMED Code(s): 02865472 Code(s): E78.5 - HYPERLIPIDEMIA, UNSPECIFIED Status: Chronic Current Visit: No (7) HTN (hypertension) SNOMED Code(s): 86053933 Code(s): I10 - ESSENTIAL (PRIMARY) HYPERTENSION Status: Chronic Current Visit: No (8) Type 2 diabetes mellitus SNOMED Code(s): 78088108 Code(s): E11.9 - TYPE 2 DIABETES MELLITUS WITHOUT COMPLICATIONS Status: Chronic Current Visit: No (9) Colorectal cancer SNOMED Code(s): 624990625 Code(s): C19 - MALIGNANT NEOPLASM OF RECTOSIGMOID JUNCTION Status: Chronic Current Visit: Yes (10) Colostomy in place SNOMED Code(s): 799211579, 442781119 Code(s): Z93.3 - COLOSTOMY STATUS Status: Chronic Current Visit: Yes (11) Chronic indwelling Pablo catheter SNOMED Code(s): 221021519 Code(s): Z92.89 - PERSONAL HISTORY OF OTHER MEDICAL TREATMENT Status: Chronic Current Visit: Yes (12) Sacral decubitus ulcer, stage IV SNOMED Code(s): 434555437, 388428620 Code(s): L89.154 - PRESSURE ULCER OF SACRAL REGION, STAGE 4 Status: Chronic Current Visit: Yes (13) Protein malnutrition SNOMED Code(s): 984628277 Code(s): E46 - UNSPECIFIED PROTEIN-CALORIE MALNUTRITION Status: Chronic Current Visit: Yes (14) VTE (venous thromboembolism) SNOMED Code(s): 213498377 Code(s): I82.90 - ACUTE EMBOLISM AND THROMBOSIS OF UNSPECIFIED VEIN Status : Chronic Current Visit: Yes - Problem List Review Problem List Initiated/Reviewed/Updated: Yes - My Orders Last 24 Hours: My Active Orders 10/29/18 08:21 Blood Glucose Check, Bedside [] ONETIME - Plan Plan:: 63 yo male with metastatic colorectal cancer admitted for UTI. 1. UTI: UC pending. Leukocytosis improving. Continue with Levaquin and IVFs for now. Pablo was replaced in ED. 2. Hyponatremia: Monitor, IVFs for now. likely related to Ca. 3. Sacral ulcer: Continue dressing changes per home routine. Continue Vancomycin , though wound appears very clean. 4. Hx DVT: Continue Lovenox BID. 5. Diarrhea: Will obtain stool samples. If clear, then will allow Imodium. 6. DM Type 2: Continue Novolog SSI. 7. Metastatic colorectal ca: Continue pain management. Broached the subject regarding Hospice consult, declines this and has appointment with oncology set up to talk about treatment. 8. Generalized weakness: Consult PT Dispo: 2-4 days pending improvement. Patient reports he will go home when improved. Has sons and to help care for him.
[2018-10-29] MEDS: Enoxaparin 100 MG/1 ML Syringe SUBCUT SCH ×2 (09:58→21:39)
[2018-10-29] MEDS: Gabapentin 300 MG Cap PO SCH (10:01)
[2018-10-29] MEDS: atorvaSTATin 40 MG Tab PO SCH (10:01)
[2018-10-29] MEDS: TRESIBA SUBCUT SCH (10:01)
[2018-10-29] MEDS: TRELEGY ELLIPTA PO SCH (10:02)
[2018-10-30] MEDS: Vancomycin 1.5 GM in Sodium Chloride 0.9% 500 ML IV SCH (00:12)
[2018-10-30] MEDS: HYDROmorphone 2 MG Tab PO PRN ×4 (02:33→17:44)
[2018-10-30 05:59] LABS: CHLORIDE,CL 100 mmol/L (98-107); SODIUM,NA 130 mmol/L (136-148)
[2018-10-30] MEDS: Insulin Aspart 100 Units/ML 3 ML Pen SUBCUT SCH ×3 (06:57→17:32)
[2018-10-30] MEDS: Sodium Chloride 0.9% 1,000 ML IV SCH (07:11)
--- NOTE | 2018-10-30 09:12 | PCM.PN ---
- General Info Date of Service: 10/30/18 Admission Dx/Problem (Free Text): Admission Diagnosis/Problem Admission Diagnosis/Problem UTI (urinary tract infection), uncomplicated Subjective Update: Reports he is feeling much better, continues to be very weak asking for PT. No chest pain or SOB. Continues to have diarrhea. Reports swelling to legs Functional Status: Reports: Pain Controlled, Tolerating Diet, Ambulating, Urinating - Review of Systems General: Reports: Weakness (generalized). Denies: Fever HEENT: Reports: No Symptoms. Denies: Headaches, Sore Throat, Visual Changes Pulmonary: Reports: No Symptoms. Denies: Shortness of Breath, Cough, Sputum Cardiovascular: Reports: Edema. Denies: Chest Pain Gastrointestinal: Reports: Diarrhea. Denies: Difficulty Swallowing, Nausea, Vomiting Genitourinary: Reports: No Symptoms. Denies: Dysuria, Flank Pain Musculoskeletal: Reports: No Symptoms Neurological: Reports: No Symptoms Psychiatric: Reports: No Symptoms - Patient Data Vitals - Most Recent: Last Vital Signs Temp 97.8 F 10/30/18 07:25 Pulse 88 10/30/18 07:25 Resp 18 10/30/18 07:25 BP 102/58 L 10/30/18 07:25 Pulse Ox 95 10/30/18 07:25 Weight - Most Recent: 78 kg I&O - Last 24 Hours: Intake & Output 10/29/18 10/30/18 10/30/18 22:59 06:59 14:59 Intake Total 1935 900 Output Total 1000 625 Balance 935 275 Lab Results Last 24 Hours: Laboratory Results - last 24 hr 10/29/18 10/29/18 10/30/18 Range/Units 12:13 19:11 05:00 WBC 13.01 H (4.0-11.0) K/uL RBC 4.27 L (4.50-5.90) M/uL Hgb 8.7 L (13.0-17.0) g/dL Hct 28.0 L (38.0-50.0) % MCV 65.6 L (80.0-98.0) fL MCH 20.4 L (27.0-32.0) pg MCHC 31.1 (31.0-37.0) g/dL RDW Std Deviation 49.3 (28.0-62.0) fl RDW Coeff of Nery 21 H (11.0-15.0) % Plt Count 219 (150-400) K/uL MPV 9.50 (7.40-12.00) fL Add Manual Diff YES Neutrophils % (Manual) 69 (48.0-80.0) % Band Neutrophils % 19 % Lymphocytes % (Manual) 6 L (16.0-40.0) % Monocytes % (Manual) 4 (0.0-15.0) % Eosinophils % (Manual) 2 (0.0-7.0) % Nucleated RBC % 0.0 /100WBC Absolute Seg Neuts 9.0 H (1.4-5.7) Band Neutrophils # 2.5 Lymphocytes # (Manual) 0.8 (0.6-2.4) Monocytes # (Manual) 0.5 (0.0-0.8) Eosinophils # (Manual) 0.3 (0.0-0.7) Nucleated RBCs # 0 K/uL Sodium (136-148) mmol/L Potassium (3.5-5.1) mmol/L Chloride (98-107) mmol/L Carbon Dioxide (21.0-32.0) mmol/L BUN (7.0-18.0) mg/dL Creatinine (0.8-1.3) mg/dL Est Cr Clr Drug Dosing mL/min Estimated GFR (MDRD) ml/min Glucose (74-106) mg/dL POC Glucose 97 110 (60-110) mg/dL Calcium (8.5-10.1) mg/dL Total Bilirubin (0.2-1.0) mg/dL AST (15-37) IU/L ALT (14-63) IU/L Alkaline Phosphatase (46-116) U/L Total Protein (6.4-8.2) g/dL Albumin (3.4-5.0) g/dL Globulin (2.6-4.0) g/dL Albumin/Globulin Ratio (0.9-1.6) 10/30/18 10/30/18 Range/Units 05:00 06:01 WBC (4.0-11.0) K/uL RBC (4.50-5.90) M/uL Hgb (13.0-17.0) g/dL Hct (38.0-50.0) % MCV (80.0-98.0) fL MCH (27.0-32.0) pg MCHC (31.0-37.0) g/dL RDW Std Deviation (28.0-62.0) fl RDW Coeff of Nery (11.0-15.0) % Plt Count (150-400) K/uL MPV (7.40-12.00) fL Add Manual Diff Neutrophils % (Manual) (48.0-80.0) % Band Neutrophils % % Lymphocytes % (Manual) (16.0-40.0) % Monocytes % (Manual) (0.0-15.0) % Eosinophils % (Manual) (0.0-7.0) % Nucleated RBC % /100WBC Absolute Seg Neuts (1.4-5.7) Band Neutrophils # Lymphocytes # (Manual) (0.6-2.4) Monocytes # (Manual) (0.0-0.8) Eosinophils # (Manual) (0.0-0.7) Nucleated RBCs # K/uL Sodium 130 L (136-148) mmol/L Potassium 3.8 (3.5-5.1) mmol/L Chloride 100 (98-107) mmol/L Carbon Dioxide 19.7 L (21.0-32.0) mmol/L BUN 30 H (7.0-18.0) mg/dL Creatinine 1.2 (0.8-1.3) mg/dL Est Cr Clr Drug Dosing 58.34 mL/min Estimated GFR (MDRD) > 60.0 ml/min Glucose 143 H (74-106) mg/dL POC Glucose 121 H (60-110) mg/dL Calcium 8.0 L (8.5-10.1) mg/dL Total Bilirubin 0.9 (0.2-1.0) mg/dL AST 233 H (15-37) IU/L ALT 57 (14-63) IU/L Alkaline Phosphatase 1030 H (46-116) U/L Total Protein 5.2 L (6.4-8.2) g/dL Albumin 1.5 L (3.4-5.0) g/dL Globulin 3.7 (2.6-4.0) g/dL Albumin/Globulin Ratio 0.4 L (0.9-1.6) Maycol Results Last 24 Hours: Microbiology 10/28/18 22:45 Urine Culture - Preliminary Urine, Pablo Cath (Indwelling) Escherichia Coli 10/29/18 00:02 Aerobic Blood Culture - Preliminary Blood - Venous - Lab Draw NO GROWTH AFTER 1 DAY Anaerobic Blood Culture - Preliminary NO GROWTH AFTER 1 DAY 10/28/18 23:40 Aerobic Blood Culture - Preliminary Blood - Venous NO GROWTH AFTER 1 DAY Anaerobic Blood Culture - Preliminary NO GROWTH AFTER 1 DAY 10/29/18 14:50 Campylobacter Antigen Assay - Final Stool / Feces NEGATIVE [facility] 10/29/18 14:50 Clostridium difficile Toxin A & B - Final Stool / Feces Negative for C.Diff Toxin/AG Med Orders - Current: Current Medications Atorvastatin Calcium (Lipitor) 40 mg PO DAILY [facility] Last Admin: 10/29/18 10:01 Dose: 40 mg Enoxaparin Sodium (Lovenox) 80 mg SUBCUT Q12H [facility] Last Admin: 10/29/18 21:39 Dose: 80 mg Fentanyl (Duragesic) 100 mcg TRDERM Q72H [facility] Last Admin: 10/29/18 02:47 Dose: 100 mcg Gabapentin (Neurontin) 300 mg PO DAILY [facility] Last Admin: 10/29/18 10:01 Dose: 300 mg Hydromorphone HCl (Dilaudid) 2 mg PO Q4H PRN PRN Reason: Pain Last Admin: 10/30/18 07:11 Dose: 2 mg Levofloxacin/Dextrose 750 mg/ (Premix) 150 mls @ 100 mls/hr IV Q24H [facility] Last Admin: 10/29/18 22:30 Dose: 100 mls/hr Vancomycin HCl 1.5 gm/ Sodium (Chloride) 500 mls @ 333.333 mls/hr IV Q12H [facility] Last Admin: 10/30/18 00:12 Dose: 333.333 mls/hr Sodium Chloride (Normal Saline) 1,000 mls @ 125 mls/hr IV ASDIRECTED [facility] Last Admin: 10/30/18 07:11 Dose: 125 mls/hr Insulin Aspart (Novolog) 0 unit SUBCUT TIDAC [facility]; Protocol Last Admin: 10/30/18 06:57 Dose: Not Given Trelegy Ellipta 1 each PO DAILY [facility] Last Admin: 10/29/18 10:02 Dose: Not Given Tresiba 30 each SUBCUT DAILY [facility] Last Admin: 10/29/18 10:01 Dose: Not Given Vancomycin HCl (Pharmacy To Dose - Vancomycin) 1 dose .XX ASDIRECTED [facility] Discontinued Medications Non-Formulary Medication (Fentanyl [Fentanyl]) 1 patch TD Q72H PRN PRN Reason: Pain Non-Formulary Medication (Insulin Degludec [Tresiba]) 30 units INJECT ASDIRECTED [facility] - Exam Quality Assessment: Urine Catheter, DVT Prophylaxis. No: Supplemental Oxygen General: Alert, Oriented, Cooperative Neck: Supple Lungs: Clear to Auscultation, Normal Respiratory Effort Cardiovascular: Regular Rate, Regular Rhythm GI/Abdominal Exam: Normal Bowel Sounds, Soft, Other (colostomy, with noted diarrhea) Extremities: Normal Inspection, Normal Range of Motion, Non-Tender, Pedal Edema (+3 pitting edema.) Neurological: No New Focal Deficit Psy/Mental Status: Alert, Normal Affect, Normal Mood - Problem List & Annotations (1) UTI (urinary tract infection) SNOMED Code(s): 35786576 Code(s): N39.0 - URINARY TRACT INFECTION, SITE NOT SPECIFIED Status: Acute Current Visit: Yes Qualifiers: Urinary tract infection type: catheter-associated UTI Indwelling urinary catheter type: indwelling urethral catheter Encounter type: initial encounter Qualified Code(s): T83.511A - Infection and inflammatory reaction due to indwelling urethral catheter, initial encounter; N39.0 - Urinary tract infection , site not specified (2) TRE (acute kidney injury) SNOMED Code(s): 75500132 Code(s): N17.9 - ACUTE KIDNEY FAILURE, UNSPECIFIED Status: Acute Current Visit: Yes (3) Hyponatremia SNOMED Code(s): 66559304 Code(s): E87.1 - HYPO-OSMOLALITY AND HYPONATREMIA Status: Acute Current Visit: Yes (4) Metastatic cancer SNOMED Code(s): 505399505 Code(s): C80.1 - MALIGNANT (PRIMARY) NEOPLASM, UNSPECIFIED Status: Chronic Priority: Medium Current Visit: Yes (5) COPD (chronic obstructive pulmonary disease) SNOMED Code(s): 57058788 Code(s): J44.9 - CHRONIC OBSTRUCTIVE PULMONARY DISEASE, UNSPECIFIED Status : Chronic Current Visit: No (6) HLD (hyperlipidemia) SNOMED Code(s): 68436040 Code(s): E78.5 - HYPERLIPIDEMIA, UNSPECIFIED Status: Chronic Current Visit: No (7) HTN (hypertension) SNOMED Code(s): 03943784 Code(s): I10 - ESSENTIAL (PRIMARY) HYPERTENSION Status: Chronic Current Visit: No (8) Type 2 diabetes mellitus SNOMED Code(s): 29978311 Code(s): E11.9 - TYPE 2 DIABETES MELLITUS WITHOUT COMPLICATIONS Status: Chronic Current Visit: No (9) Colorectal cancer SNOMED Code(s): 632382425 Code(s): C19 - MALIGNANT NEOPLASM OF RECTOSIGMOID JUNCTION Status: Chronic Current Visit: Yes (10) Colostomy in place SNOMED Code(s): 792723305, 151547630 Code(s): Z93.3 - COLOSTOMY STATUS Status: Chronic Current Visit: Yes (11) Chronic indwelling Pablo catheter SNOMED Code(s): 485048775 Code(s): Z92.89 - PERSONAL HISTORY OF OTHER MEDICAL TREATMENT Status: Chronic Current Visit: Yes (12) Sacral decubitus ulcer, stage IV SNOMED Code(s): 975247033, 855944061 Code(s): L89.154 - PRESSURE ULCER OF SACRAL REGION, STAGE 4 Status: Chronic Current Visit: Yes (13) Protein malnutrition SNOMED Code(s): 000113610 Code(s): E46 - UNSPECIFIED PROTEIN-CALORIE MALNUTRITION Status: Chronic Current Visit: Yes (14) VTE (venous thromboembolism) SNOMED Code(s): 813576929 Code(s): I82.90 - ACUTE EMBOLISM AND THROMBOSIS OF UNSPECIFIED VEIN Status : Chronic Current Visit: Yes - Problem List Review Problem List Initiated/Reviewed/Updated: Yes - My Orders Last 24 Hours: My Active Orders 10/29/18 14:50 CULTURE STOOL + CAMPY+SHIGATOX [RM] Routine 10/30/18 08:31 Consult to Physical Therapy [PT Evaluation and Treatment] [CONS] Routine - Plan Plan:: 63 yo male with metastatic colorectal cancer admitted for UTI. 1. UTI: UC reveals paris sensitive E coli. Leukocytosis improving. Continue with Levaquin. Pablo was replaced in ED. 2. Hyponatremia: Monitor likely related to Ca. 3. Sacral ulcer: Continue dressing changes per home routine. 4. Hx DVT: Continue Lovenox BID. 5. Diarrhea: Stool studies negative. allow Imodium. 6. DM Type 2: Continue Novolog SSI. 7. Metastatic colorectal ca: Continue pain management. Broached the subject regarding Hospice consult, declines this and has appointment with oncology set up to talk about treatment. 8. Generalized weakness: Consult PT Dispo: 2-4 days pending improvement. Patient reports he will go home when improved. Has sons and to help care for him.
[2018-10-30] MEDS: Enoxaparin 100 MG/1 ML Syringe SUBCUT SCH ×2 (10:30→21:00)
[2018-10-30] MEDS: atorvaSTATin 40 MG Tab PO SCH (10:31)
[2018-10-30] MEDS: Gabapentin 300 MG Cap PO SCH (10:31)
[2018-10-30] MEDS: TRESIBA SUBCUT SCH (10:35)
[2018-10-30] MEDS: TRELEGY ELLIPTA PO SCH (10:37)
[2018-10-30] MEDS ORDERED: Loperamide 2 MG Cap PO PRN (12:00)
[2018-10-30] MEDS ORDERED: Insulin Regular, Human 100 Units/ML 10 ML Vial IVPUSH ONE (19:37)
[2018-10-30] MEDS ORDERED: ACETIC ACID 0.25% TOP SCH (21:00)
[2018-10-30] MEDS: [UNRECOGNIZED DRUG - OTHER] TOP SCH ×2 (21:30)
[2018-10-30] MEDS: ACETIC ACID TOP SCH ×2 (21:30)
[2018-10-30] MEDS: Levofloxacin/Dextrose 5%-Water 750 MG in Premix Bag 1 BAG IV SCH (23:00)
[2018-10-31] MEDS: HYDROmorphone 2 MG Tab PO PRN ×5 (01:55→19:01)
[2018-10-31 06:22] LABS: CHLORIDE,CL 101 mmol/L (98-107); SODIUM,NA 131 mmol/L (136-148)
[2018-10-31] MEDS: Insulin Aspart 100 Units/ML 3 ML Pen SUBCUT SCH ×3 (07:04→18:34)
--- NOTE | 2018-10-31 08:31 | PCM.PN ---
- General Info Date of Service: 10/31/18 Admission Dx/Problem (Free Text): Admission Diagnosis/Problem Admission Diagnosis/Problem UTI (urinary tract infection), uncomplicated Subjective Update: COntinues to feel better, today he reports R sided abdominal pain that has been intermittent over the last 2 days, but this is the first time he has mentioned it to us. Reports Legs are heavy and he continues to be weak. Working with PT. No chest pain or SOB. Diarrhea has improved after immodium. Functional Status: Reports: Tolerating Diet. Denies: Ambulating - Review of Systems General: Reports: Weakness (generalized) HEENT: Reports: No Symptoms. Denies: Headaches, Sore Throat Pulmonary: Reports: No Symptoms. Denies: Shortness of Breath, Cough, Sputum Cardiovascular: Reports: Edema (legs). Denies: Chest Pain Gastrointestinal: Reports: Abdominal Pain. Denies: Diarrhea, Nausea, Vomiting Genitourinary: Reports: No Symptoms. Denies: Dysuria, Frequency, Burning Musculoskeletal: Reports: Leg Pain (L leg) Skin: Reports: No Symptoms Neurological: Reports: No Symptoms Psychiatric: Reports: No Symptoms - Patient Data Vitals - Most Recent: Last Vital Signs Temp 97.7 F 10/31/18 04:00 Pulse 86 10/31/18 04:00 Resp 16 10/31/18 04:00 BP 113/56 L 10/31/18 04:00 Pulse Ox 95 10/31/18 04:00 Weight - Most Recent: 78 kg I&O - Last 24 Hours: Intake & Output 10/30/18 10/31/18 10/31/18 22:59 06:59 14:59 Intake Total 550 500 Output Total 1050 700 Balance -500 -200 Lab Results Last 24 Hours: Laboratory Results - last 24 hr 10/30/18 10/30/18 10/31/18 Range/Units 11:39 17:07 05:15 WBC 14.47 H (4.0-11.0) K/uL RBC 4.48 L (4.50-5.90) M/uL Hgb 9.1 L (13.0-17.0) g/dL Hct 29.3 L (38.0-50.0) % MCV 65.4 L (80.0-98.0) fL MCH 20.3 L (27.0-32.0) pg MCHC 31.1 (31.0-37.0) g/dL RDW Std Deviation 49.3 (28.0-62.0) fl RDW Coeff of Nery 21 H (11.0-15.0) % Plt Count 184 (150-400) K/uL Add Manual Diff YES Neutrophils % (Manual) 71 (48.0-80.0) % Band Neutrophils % 16 % Lymphocytes % (Manual) 8 L (16.0-40.0) % Monocytes % (Manual) 4 (0.0-15.0) % Myelocytes % 1 % Nucleated RBC % 0.0 /100WBC Absolute Seg Neuts 10.3 H (1.4-5.7) Band Neutrophils # 2.3 Lymphocytes # (Manual) 1.2 (0.6-2.4) Monocytes # (Manual) 0.6 (0.0-0.8) Absolute Myelocytes 0.1 Nucleated RBCs # 0 K/uL Sodium (136-148) mmol/L Potassium (3.5-5.1) mmol/L Chloride (98-107) mmol/L Carbon Dioxide (21.0-32.0) mmol/L BUN (7.0-18.0) mg/dL Creatinine (0.8-1.3) mg/dL Est Cr Clr Drug Dosing mL/min Estimated GFR (MDRD) ml/min Glucose (74-106) mg/dL POC Glucose 141 H 131 H (60-110) mg/dL Calcium (8.5-10.1) mg/dL Total Bilirubin (0.2-1.0) mg/dL AST (15-37) IU/L ALT (14-63) IU/L Alkaline Phosphatase (46-116) U/L Total Protein (6.4-8.2) g/dL Albumin (3.4-5.0) g/dL Globulin (2.6-4.0) g/dL Albumin/Globulin Ratio (0.9-1.6) 10/31/18 10/31/18 Range/Units 05:15 06:25 WBC (4.0-11.0) K/uL RBC (4.50-5.90) M/uL Hgb (13.0-17.0) g/dL Hct (38.0-50.0) % MCV (80.0-98.0) fL MCH (27.0-32.0) pg MCHC (31.0-37.0) g/dL RDW Std Deviation (28.0-62.0) fl RDW Coeff of Nery (11.0-15.0) % Plt Count (150-400) K/uL Add Manual Diff Neutrophils % (Manual) (48.0-80.0) % Band Neutrophils % % Lymphocytes % (Manual) (16.0-40.0) % Monocytes % (Manual) (0.0-15.0) % Myelocytes % % Nucleated RBC % /100WBC Absolute Seg Neuts (1.4-5.7) Band Neutrophils # Lymphocytes # (Manual) (0.6-2.4) Monocytes # (Manual) (0.0-0.8) Absolute Myelocytes Nucleated RBCs # K/uL Sodium 131 L (136-148) mmol/L Potassium 3.8 (3.5-5.1) mmol/L Chloride 101 (98-107) mmol/L Carbon Dioxide 18.4 L (21.0-32.0) mmol/L BUN 26 H (7.0-18.0) mg/dL Creatinine 1.2 (0.8-1.3) mg/dL Est Cr Clr Drug Dosing 58.34 mL/min Estimated GFR (MDRD) > 60.0 ml/min Glucose 134 H (74-106) mg/dL POC Glucose 115 H (60-110) mg/dL Calcium 8.3 L (8.5-10.1) mg/dL Total Bilirubin 1.0 (0.2-1.0) mg/dL AST 237 H (15-37) IU/L ALT 59 (14-63) IU/L Alkaline Phosphatase 1109 H (46-116) U/L Total Protein 5.6 L (6.4-8.2) g/dL Albumin 1.6 L (3.4-5.0) g/dL Globulin 4.0 (2.6-4.0) g/dL Albumin/Globulin Ratio 0.4 L (0.9-1.6) Maycol Results Last 24 Hours: Microbiology 10/28/18 22:45 Urine Culture - Final Urine, Pablo Cath (Indwelling) Escherichia Coli Klebsiella Oxytoca 10/29/18 00:02 Aerobic Blood Culture - Preliminary Blood - Venous - Lab Draw NO GROWTH AFTER 2 DAYS Anaerobic Blood Culture - Preliminary NO GROWTH AFTER 2 DAYS 10/28/18 23:40 Aerobic Blood Culture - Preliminary Blood - Venous NO GROWTH AFTER 2 DAYS Anaerobic Blood Culture - Preliminary NO GROWTH AFTER 2 DAYS 10/29/18 14:50 Campylobacter Antigen Assay - Final Stool / Feces NEGATIVE CAMPYLOBACTER AG Shiga Toxin I - Final NEGATIVE FOR SHIGA TOXIN 1 Shiga Toxin II - Final NEGATIVE FOR SHIGA TOXIN 2 Med Orders - Current: Current Medications Sterile Water 114 ml/ Acetic (Acid 6 ml) 0 ml TOP BEDTIME [facility] Last Admin: 10/30/18 21:30 Dose: 1 bottle Enoxaparin Sodium (Lovenox) 80 mg SUBCUT Q12H [facility] Last Admin: 10/30/18 21:00 Dose: 80 mg Fentanyl (Duragesic) 100 mcg TRDERM Q72H [facility] Last Admin: 10/29/18 02:47 Dose: 100 mcg Gabapentin (Neurontin) 300 mg PO DAILY [facility] Last Admin: 10/30/18 10:31 Dose: 300 mg Hydromorphone HCl (Dilaudid) 2 mg PO Q4H PRN PRN Reason: Pain Last Admin: 10/31/18 06:22 Dose: 2 mg Levofloxacin/Dextrose 750 mg/ (Premix) 150 mls @ 100 mls/hr IV Q24H [facility] Last Admin: 10/30/18 23:00 Dose: 100 mls/hr Insulin Aspart (Novolog) 0 unit SUBCUT TIDAC [facility]; Protocol Last Admin: 10/31/18 07:04 Dose: Not Given Loperamide HCl (Imodium) 0 mg PO ASDIRECTED PRN PRN Reason: Diarrhea Trelegy Ellipta 1 each PO DAILY [facility] Last Admin: 10/30/18 10:37 Dose: 1 each Tresiba 1 each SUBCUT DAILY [facility] Sodium Hypochlorite (Dakin's 1/2 Strength) 0 ml TOP DAILY [facility] Discontinued Medications Atorvastatin Calcium (Lipitor) 40 mg PO DAILY [facility] Last Admin: 10/30/18 10:31 Dose: 40 mg Vancomycin HCl 1.5 gm/ Sodium (Chloride) 500 mls @ 333.333 mls/hr IV Q12H [facility] Last Admin: 10/30/18 00:12 Dose: 333.333 mls/hr Sodium Chloride (Normal Saline) 1,000 mls @ 125 mls/hr IV ASDIRECTED [facility] Last Admin: 10/30/18 07:11 Dose: 125 mls/hr Non-Formulary Medication (Fentanyl [Fentanyl]) 1 patch TD Q72H PRN PRN Reason: Pain Non-Formulary Medication (Insulin Degludec [Tresiba]) 30 units INJECT ASDIRECTED [facility] Tresiba 30 each SUBCUT DAILY [facility] Last Admin: 10/30/18 10:35 Dose: 30 each Acetic Acid 0.25% (Solution) 0 each TOP BEDTIME [facility] Vancomycin HCl (Pharmacy To Dose - Vancomycin) 1 dose .XX ASDIRECTED [facility] - Exam General: Alert, Oriented, No Acute Distress Neck: Supple Lungs: Clear to Auscultation, Normal Respiratory Effort Cardiovascular: Regular Rate, Regular Rhythm GI/Abdominal Exam: Normal Bowel Sounds, Soft, Tender (RLQ), Other (colostomy, no further diarrhea) Extremities: Normal Range of Motion, Pedal Edema (+3 pitting edema BLE) Wound/Incisions: Decubitis (clean, no signs of infection) Neurological: No New Focal Deficit Psy/Mental Status: Alert, Normal Affect, Normal Mood - Problem List & Annotations (1) UTI (urinary tract infection) SNOMED Code(s): 86267942 Code(s): N39.0 - URINARY TRACT INFECTION, SITE NOT SPECIFIED Status: Acute Current Visit: Yes Qualifiers: Urinary tract infection type: catheter-associated UTI Indwelling urinary catheter type: indwelling urethral catheter Encounter type: initial encounter Qualified Code(s): T83.511A - Infection and inflammatory reaction due to indwelling urethral catheter, initial encounter; N39.0 - Urinary tract infection , site not specified (2) TRE (acute kidney injury) SNOMED Code(s): 67317764 Code(s): N17.9 - ACUTE KIDNEY FAILURE, UNSPECIFIED Status: Acute Current Visit: Yes (3) Hyponatremia SNOMED Code(s): 64841189 Code(s): E87.1 - HYPO-OSMOLALITY AND HYPONATREMIA Status: Acute Current Visit: Yes (4) Metastatic cancer SNOMED Code(s): 017023565 Code(s): C80.1 - MALIGNANT (PRIMARY) NEOPLASM, UNSPECIFIED Status: Chronic Priority: Medium Current Visit: Yes (5) COPD (chronic obstructive pulmonary disease) SNOMED Code(s): 13135071 Code(s): J44.9 - CHRONIC OBSTRUCTIVE PULMONARY DISEASE, UNSPECIFIED Status : Chronic Current Visit: No (6) HLD (hyperlipidemia) SNOMED Code(s): 75342117 Code(s): E78.5 - HYPERLIPIDEMIA, UNSPECIFIED Status: Chronic Current Visit: No (7) HTN (hypertension) SNOMED Code(s): 51080491 Code(s): I10 - ESSENTIAL (PRIMARY) HYPERTENSION Status: Chronic Current Visit: No (8) Type 2 diabetes mellitus SNOMED Code(s): 06710264 Code(s): E11.9 - TYPE 2 DIABETES MELLITUS WITHOUT COMPLICATIONS Status: Chronic Current Visit: No (9) Colorectal cancer SNOMED Code(s): 547414002 Code(s): C19 - MALIGNANT NEOPLASM OF RECTOSIGMOID JUNCTION Status: Chronic Current Visit: Yes (10) Colostomy in place SNOMED Code(s): 695068184, 499391465 Code(s): Z93.3 - COLOSTOMY STATUS Status: Chronic Current Visit: Yes (11) Chronic indwelling Pablo catheter SNOMED Code(s): 511111043 Code(s): Z92.89 - PERSONAL HISTORY OF OTHER MEDICAL TREATMENT Status: Chronic Current Visit: Yes (12) Sacral decubitus ulcer, stage IV SNOMED Code(s): 660375742, 463196612 Code(s): L89.154 - PRESSURE ULCER OF SACRAL REGION, STAGE 4 Status: Chronic Current Visit: Yes (13) Protein malnutrition SNOMED Code(s): 016774614 Code(s): E46 - UNSPECIFIED PROTEIN-CALORIE MALNUTRITION Status: Chronic Current Visit: Yes (14) VTE (venous thromboembolism) SNOMED Code(s): 697642223 Code(s): I82.90 - ACUTE EMBOLISM AND THROMBOSIS OF UNSPECIFIED VEIN Status : Chronic Current Visit: Yes - Problem List Review Problem List Initiated/Reviewed/Updated: Yes - My Orders Last 24 Hours: My Active Orders 10/30/18 08:31 Consult to Physical Therapy [PT Evaluation and Treatment] [CONS] Routine 10/30/18 10:54 Antiembolic Devices [RC] PER UNIT ROUTINE 10/30/18 12:00 Loperamide [Imodium] See Dose Instructions PO ASDIRECTED PRN 10/30/18 21:00 Water For Irrigation,Sterile [Sterile Water for Irrigation] 114 ml Acetic Acid [ Acetic Acid 5%] 6 ml TOP BEDTIME 10/31/18 09:00 Sodium Hypochlorite [Dakin's 1/2 Strength] See Dose Instructions TOP DAILY 11/01/18 05:11 CBC WITH AUTO DIFF [HEME] AM COMPREHENSIVE METABOLIC PN,CMP [CHEM] AM 11/02/18 05:11 CBC WITH AUTO DIFF [HEME] AM COMPREHENSIVE METABOLIC PN,CMP [CHEM] AM - Plan Plan:: 63 yo male with metastatic colorectal cancer admitted for UTI. 1. UTI: UC reveals paris sensitive E coli. Leukocytosis 14,000 today. Continue with Levaquin. 2. Hyponatremia: Improving slowly. 3. Sacral ulcer: Continue dressing changes per home routine. COntinues to be clean 4. Hx DVT: Continue Lovenox 80mg BID. 5. Diarrhea: Resolved. 6. DM Type 2: Continue Novolog SSI. 7. Metastatic colorectal ca: Continue pain management. Broached the subject regarding Hospice consult, declines this and has appointment with oncology set up to talk about treatment. Reports having some abdominal pain, will obtain CT of abdomen/pelvis and chest to further evaluate 8. Generalized weakness: Consult PT Dispo: 2-4 days pending improvement. Patient reports he will go home when improved. Alejo reported wanting to go to [place], but once was given application she was very adamant that he would be going home.
[2018-10-31] MEDS: Gabapentin 300 MG Cap PO SCH ×2 (09:06→20:48)
[2018-10-31] MEDS: TRESIBA SUBCUT SCH (09:08)
[2018-10-31] MEDS: Enoxaparin 100 MG/1 ML Syringe SUBCUT SCH ×2 (09:10→20:48)
[2018-10-31] MEDS: Sodium Hypochlorite 0.25% Soln 473 ML TOP SCH (11:56)
[2018-10-31] MEDS: TRELEGY ELLIPTA PO SCH (11:57)
--- NOTE | 2018-10-31 14:04 | CT ---
CT of the chest, abdomen and pelvis without contrast. HISTORY: Pain TECHNIQUE: Axial CT images were obtained of the abdomen and pelvis without contrast. Coronal and sagittal reconstructions obtained. FINDINGS: Chest: There are numerous pulmonary nodules noted bilaterally. The heart is borderline in size. There are a few mildly prominent mediastinal lymph nodes noted measuring up to 15 mm in the short axis. Mild bilateral hilar fullness. No axillary lymphadenopathy. No significant pleural effusions. Central airways are clear. Thoracic aorta is normal in caliber. Abdomen: Extensive hepatic metastatic disease is also noted. Otherwise the liver is enlarged. The Spleen, adrenal glands, and pancreas appear unremarkable for noncontrast examination. Small amount of pericholecystic fluid otherwise the gallbladder appears normal. There are a few enlarged retroperitoneal lymph nodes. Minimal abdominal ascites and free pelvic fluid. There is moderate left-sided hydronephrosis and renal atrophy. The definitive reason for obstruction is not identifiable due to artifact within the pelvis. Pelvis: Right lower quadrant colostomy. There is no bulky pelvic lymphadenopathy. No free fluid. No free air. There is a Pablo catheter within the bladder. Small fat-containing right inguinal hernia. Mild generalized anasarca. Advanced degenerative changes within the right hip. Metastatic sclerosis noted within the vertebral bodies at L2 and L4 and also at T4. Healing left-sided rib fractures are noted. Osseous metastatic changes also noted within the pelvis. There is likely a sacral ulcer. IMPRESSION: 1. Extensive pulmonary and hepatic metastatic disease. 2. Mild mediastinal, hilar, and retroperitoneal lymphadenopathy. 3. Left-sided hydronephrosis, likely chronic, mild renal atrophy. 4. Pericholecystic stranding, otherwise the gallbladder appears normal. Cholecystitis is not excluded. 5. Sacral ulcer. 6. Small fat-containing right inguinal hernia.
[2018-10-31] MEDS ORDERED: metroNIDAZOLE/Normal Saline 500 MG in Premix Bag 1 BAG IV SCH (14:53)
[2018-10-31] MEDS: metroNIDAZOLE/Normal Saline 500 MG in Premix Bag 1 BAG IV SCH (20:48)
[2018-10-31] MEDS: [UNRECOGNIZED DRUG - OTHER] TOP SCH ×2 (20:49)
[2018-10-31] MEDS: ACETIC ACID TOP SCH ×2 (20:49)
[2018-10-31] MEDS: Levofloxacin/Dextrose 5%-Water 750 MG in Premix Bag 1 BAG IV SCH (22:59)
[2018-11-01] MEDS: HYDROmorphone 2 MG Tab PO PRN ×5 (00:54→21:55)
[2018-11-01] MEDS: fentaNYL 100 MCG/HR Transdermal Patch TRDERM SCH (03:02)
[2018-11-01] MEDS: metroNIDAZOLE/Normal Saline 500 MG in Premix Bag 1 BAG IV SCH ×4 (03:02→21:45)
[2018-11-01] MEDS: Insulin Aspart 100 Units/ML 3 ML Pen SUBCUT SCH ×3 (06:40→17:58)
[2018-11-01 07:02] LABS: CHLORIDE,CL 102 mmol/L (98-107); SODIUM,NA 130 mmol/L (136-148)
[2018-11-01] MEDS: Sodium Hypochlorite 0.25% Soln 473 ML TOP SCH (08:43)
[2018-11-01] MEDS: Enoxaparin 100 MG/1 ML Syringe SUBCUT SCH ×2 (08:43→21:48)
[2018-11-01] MEDS: TRESIBA SUBCUT SCH (08:44)
[2018-11-01] MEDS: Gabapentin 300 MG Cap PO SCH ×2 (08:44→21:47)
[2018-11-01] MEDS: TRELEGY ELLIPTA PO SCH (08:44)
--- NOTE | 2018-11-01 11:40 | PCM.PN ---
- General Info Date of Service: 11/01/18 Subjective Update: Pt states he is feeling better and was able to do more work with physical therapy today. - Patient Data Vitals - Most Recent: Last Vital Signs Temp 35.9 C 11/01/18 07:49 Pulse 89 11/01/18 07:49 Resp 18 11/01/18 07:49 BP 108/59 L 11/01/18 07:49 Pulse Ox 95 11/01/18 07:49 Weight - Most Recent: 127.006 kg I&O - Last 24 Hours: Intake & Output 10/31/18 11/01/18 11/01/18 22:59 06:59 14:59 Intake Total 500 850 Output Total 800 750 Balance -300 100 Lab Results Last 24 Hours: Laboratory Results - last 24 hr 10/31/18 11/01/18 11/01/18 Range/Units 17:00 06:14 06:14 WBC 18.07 H (4.0-11.0) K/uL RBC 5.04 (4.50-5.90) M/uL Hgb 10.1 L (13.0-17.0) g/dL Hct 32.8 L (38.0-50.0) % MCV 65.1 L (80.0-98.0) fL MCH 20.0 L (27.0-32.0) pg MCHC 30.8 L (31.0-37.0) g/dL RDW Std Deviation 50.0 (28.0-62.0) fl RDW Coeff of Nery 22 H (11.0-15.0) % Plt Count 156 (150-400) K/uL Add Manual Diff YES Neutrophils % (Manual) 83 H (48.0-80.0) % Band Neutrophils % 4 % Lymphocytes % (Manual) 9 L (16.0-40.0) % Monocytes % (Manual) 4 (0.0-15.0) % Nucleated RBC % 0.0 /100WBC Absolute Seg Neuts 15.0 H (1.4-5.7) Band Neutrophils # 0.7 Lymphocytes # (Manual) 1.6 (0.6-2.4) Monocytes # (Manual) 0.7 (0.0-0.8) Nucleated RBCs # 0 K/uL Sodium 130 L (136-148) mmol/L Potassium 4.2 (3.5-5.1) mmol/L Chloride 102 (98-107) mmol/L Carbon Dioxide 16.0 L (21.0-32.0) mmol/L BUN 23 H (7.0-18.0) mg/dL Creatinine 1.0 (0.8-1.3) mg/dL Est Cr Clr Drug Dosing 70.00 mL/min Estimated GFR (MDRD) > 60.0 ml/min Glucose 108 H (74-106) mg/dL POC Glucose 97 (60-110) mg/dL Calcium 8.9 (8.5-10.1) mg/dL Total Bilirubin 1.3 H (0.2-1.0) mg/dL AST 200 H (15-37) IU/L ALT 56 (14-63) IU/L Alkaline Phosphatase 1262 H (46-116) U/L Total Protein 6.1 L (6.4-8.2) g/dL Albumin 1.6 L (3.4-5.0) g/dL Globulin 4.5 H (2.6-4.0) g/dL Albumin/Globulin Ratio 0.4 L (0.9-1.6) 11/01/18 11/01/18 Range/Units 06:32 11:35 WBC (4.0-11.0) K/uL RBC (4.50-5.90) M/uL Hgb (13.0-17.0) g/dL Hct (38.0-50.0) % MCV (80.0-98.0) fL MCH (27.0-32.0) pg MCHC (31.0-37.0) g/dL RDW Std Deviation (28.0-62.0) fl RDW Coeff of Nery (11.0-15.0) % Plt Count (150-400) K/uL Add Manual Diff Neutrophils % (Manual) (48.0-80.0) % Band Neutrophils % % Lymphocytes % (Manual) (16.0-40.0) % Monocytes % (Manual) (0.0-15.0) % Nucleated RBC % /100WBC Absolute Seg Neuts (1.4-5.7) Band Neutrophils # Lymphocytes # (Manual) (0.6-2.4) Monocytes # (Manual) (0.0-0.8) Nucleated RBCs # K/uL Sodium (136-148) mmol/L Potassium (3.5-5.1) mmol/L Chloride (98-107) mmol/L Carbon Dioxide (21.0-32.0) mmol/L BUN (7.0-18.0) mg/dL Creatinine (0.8-1.3) mg/dL Est Cr Clr Drug Dosing mL/min Estimated GFR (MDRD) ml/min Glucose (74-106) mg/dL POC Glucose 97 122 H (60-110) mg/dL Calcium (8.5-10.1) mg/dL Total Bilirubin (0.2-1.0) mg/dL AST (15-37) IU/L ALT (14-63) IU/L Alkaline Phosphatase (46-116) U/L Total Protein (6.4-8.2) g/dL Albumin (3.4-5.0) g/dL Globulin (2.6-4.0) g/dL Albumin/Globulin Ratio (0.9-1.6) Maycol Results Last 24 Hours: Microbiology 10/29/18 00:02 Aerobic Blood Culture - Preliminary Blood - Venous - Lab Draw NO GROWTH AFTER 3 DAYS Anaerobic Blood Culture - Preliminary NO GROWTH AFTER 3 DAYS 10/28/18 23:40 Aerobic Blood Culture - Preliminary Blood - Venous NO GROWTH AFTER 3 DAYS Anaerobic Blood Culture - Preliminary NO GROWTH AFTER 3 DAYS 10/29/18 14:50 Stool Culture - Final Stool / Feces Campylobacter Antigen Assay - Final NEGATIVE CAMPYLOBACTER AG Shiga Toxin I - Final NEGATIVE FOR SHIGA TOXIN 1 Shiga Toxin II - Final NEGATIVE FOR SHIGA TOXIN 2 10/28/18 22:45 Urine Culture - Final Urine, Pablo Cath (Indwelling) Escherichia Coli Klebsiella Oxytoca Med Orders - Current: Current Medications Sterile Water 114 ml/ Acetic (Acid 6 ml) 0 ml TOP BEDTIME [facility] Last Admin: 10/31/18 20:49 Dose: 1 bottle Enoxaparin Sodium (Lovenox) 80 mg SUBCUT Q12H [facility] Last Admin: 11/01/18 08:43 Dose: 80 mg Fentanyl (Duragesic) 100 mcg TRDERM Q72H [facility] Last Admin: 11/01/18 03:02 Dose: 100 mcg Gabapentin (Neurontin) 300 mg PO BID [facility] Last Admin: 11/01/18 08:44 Dose: 300 mg Hydromorphone HCl (Dilaudid) 2 mg PO Q4H PRN PRN Reason: Pain Last Admin: 11/01/18 09:42 Dose: 2 mg Levofloxacin/Dextrose 750 mg/ (Premix) 150 mls @ 100 mls/hr IV Q24H [facility] Last Admin: 10/31/18 22:59 Dose: 100 mls/hr Metronidazole 500 mg/ Premix 100 mls @ 100 mls/hr IV Q6H [facility] Last Admin: 11/01/18 08:46 Dose: 100 mls/hr Insulin Aspart (Novolog) 0 unit SUBCUT TIDAC [facility]; Protocol Last Admin: 11/01/18 06:40 Dose: Not Given Trelegy Ellipta 1 each PO DAILY [facility] Last Admin: 11/01/18 08:44 Dose: 1 each Tresiba 1 each SUBCUT DAILY [facility] Last Admin: 11/01/18 08:44 Dose: 1 each Sodium Hypochlorite (Dakin's 1/2 Strength) 0 ml TOP DAILY [facility] Last Admin: 11/01/18 08:43 Dose: 1 applic Discontinued Medications Atorvastatin Calcium (Lipitor) 40 mg PO DAILY [facility] Last Admin: 10/30/18 10:31 Dose: 40 mg Gabapentin (Neurontin) 300 mg PO DAILY [facility] Last Admin: 10/31/18 09:06 Dose: 300 mg Vancomycin HCl 1.5 gm/ Sodium (Chloride) 500 mls @ 333.333 mls/hr IV Q12H [facility] Last Admin: 10/30/18 00:12 Dose: 333.333 mls/hr Sodium Chloride (Normal Saline) 1,000 mls @ 125 mls/hr IV ASDIRECTED [facility] Last Admin: 10/30/18 07:11 Dose: 125 mls/hr Metronidazole 500 mg/ Premix 100 mls @ 100 mls/hr IV QID [facility] Last Admin: 10/31/18 15:22 Dose: 100 mls/hr Loperamide HCl (Imodium) 0 mg PO ASDIRECTED PRN PRN Reason: Diarrhea Non-Formulary Medication (Fentanyl [Fentanyl]) 1 patch TD Q72H PRN PRN Reason: Pain Non-Formulary Medication (Insulin Degludec [Tresiba]) 30 units INJECT ASDIRECTED [facility] Tresiba 30 each SUBCUT DAILY [facility] Last Admin: 10/30/18 10:35 Dose: 30 each Acetic Acid 0.25% (Solution) 0 each TOP BEDTIME [facility] Vancomycin HCl (Pharmacy To Dose - Vancomycin) 1 dose .XX ASDIRECTED [facility] - Exam General: Alert, Oriented, Cooperative Lungs: Normal Respiratory Effort Cardiovascular: Regular Rate, Regular Rhythm GI/Abdominal Exam: Tender Extremities: Pedal Edema - Problem List Review Problem List Initiated/Reviewed/Updated: Yes - Plan Plan:: 63 -year-old male with significant medical history of metastatic colorectal cancer being admitted for a urinary tract infection Problems: #1. Urinary tract infection with possible involvement of the GI tract: Patient's urine culture indicates pansensitive Escherichia coli was being treated with Levaquin however there was a concern for possibility of also GI tract infection involvement and the patient also had metronidazole added yesterday. His leukocytosis has increased from 14,000-18,000. However the patient states that he is feeling better today than he did yesterday #2. Hyponatremia Continues to improve #3. Sacral ulcers: Continue with dressing per home routine the ulcer does not appear to be infected #4. Type 2 diabetes Continue with insulin sliding scale NovoLog #5. Metastatic colorectal cancer -Extensive discussion was had with and patient in regards to possibility of going to [place] or hospice consult. appears to be more willing to discuss these issues shall continue to bolus the topic to see as far as disposition with the family would like to go. #6. Generalized weakness and physical deconditioning Patient is working with physical therapy, appears to have done more work with physical therapy this morning than he was able to do yesterday continue with PT.
[2018-11-01] MEDS: [UNRECOGNIZED DRUG - OTHER] TOP SCH ×2 (21:51)
[2018-11-01] MEDS: ACETIC ACID TOP SCH ×2 (21:51)
[2018-11-01] MEDS: Levofloxacin/Dextrose 5%-Water 750 MG in Premix Bag 1 BAG IV SCH (22:50)
[2018-11-02] MEDS: HYDROmorphone 2 MG Tab PO PRN ×6 (02:26→23:25)
[2018-11-02] MEDS: metroNIDAZOLE/Normal Saline 500 MG in Premix Bag 1 BAG IV SCH ×4 (02:36→21:14)
[2018-11-02] MEDS: Insulin Aspart 100 Units/ML 3 ML Pen SUBCUT SCH ×3 (07:00→16:42)
[2018-11-02 07:50] LABS: CHLORIDE,CL 103 mmol/L (98-107); SODIUM,NA 133 mmol/L (136-148)
[2018-11-02] MEDS: Gabapentin 300 MG Cap PO SCH ×2 (08:33→21:14)
[2018-11-02] MEDS: Enoxaparin 100 MG/1 ML Syringe SUBCUT SCH ×2 (08:33→21:14)
[2018-11-02] MEDS: TRELEGY ELLIPTA PO SCH (08:51)
[2018-11-02] MEDS: Sodium Hypochlorite 0.25% Soln 473 ML TOP SCH (08:51)
[2018-11-02] MEDS: TRESIBA SUBCUT SCH (13:00)
--- NOTE | 2018-11-02 13:41 | PCM.PN ---
- General Info Date of Service: 11/02/18 - Review of Systems Systems Review Comment:: patient reports back pain - Patient Data Vitals - Most Recent: Last Vital Signs Temp 35.8 C 11/02/18 11:49 Pulse 102 H 11/02/18 11:49 Resp 22 H 11/02/18 11:49 BP 103/59 L 11/02/18 11:49 Pulse Ox 97 11/02/18 11:49 Weight - Most Recent: 127.006 kg I&O - Last 24 Hours: Intake & Output 11/01/18 11/02/18 11/02/18 22:59 06:59 14:59 Intake Total 100 620 100 Output Total 700 Balance 100 -80 100 Lab Results Last 24 Hours: Laboratory Results - last 24 hr 11/01/18 11/01/18 11/02/18 Range/Units 17:25 19:32 06:11 WBC 15.80 H (4.0-11.0) K/uL RBC 4.91 (4.50-5.90) M/uL Hgb 9.8 L (13.0-17.0) g/dL Hct 31.9 L (38.0-50.0) % MCV 65.0 L (80.0-98.0) fL MCH 20.0 L (27.0-32.0) pg MCHC 30.7 L (31.0-37.0) g/dL RDW Std Deviation 50.4 (28.0-62.0) fl RDW Coeff of Nery 23 H (11.0-15.0) % Plt Count 107 L (150-400) K/uL Add Manual Diff YES Neutrophils % (Manual) 77 (48.0-80.0) % Band Neutrophils % 9 % Lymphocytes % (Manual) 13 L (16.0-40.0) % Monocytes % (Manual) 1 (0.0-15.0) % Nucleated RBC % 0.0 /100WBC Absolute Seg Neuts 12.2 H (1.4-5.7) Band Neutrophils # 1.4 Lymphocytes # (Manual) 2.1 (0.6-2.4) Monocytes # (Manual) 0.2 (0.0-0.8) Nucleated RBCs # 0 K/uL Sodium (136-148) mmol/L Potassium (3.5-5.1) mmol/L Chloride (98-107) mmol/L Carbon Dioxide (21.0-32.0) mmol/L BUN (7.0-18.0) mg/dL Creatinine (0.8-1.3) mg/dL Est Cr Clr Drug Dosing mL/min Estimated GFR (MDRD) ml/min Glucose (74-106) mg/dL POC Glucose 64 84 (60-110) mg/dL Calcium (8.5-10.1) mg/dL Total Bilirubin (0.2-1.0) mg/dL AST (15-37) IU/L ALT (14-63) IU/L Alkaline Phosphatase (46-116) U/L Total Protein (6.4-8.2) g/dL Albumin (3.4-5.0) g/dL Globulin (2.6-4.0) g/dL Albumin/Globulin Ratio (0.9-1.6) 11/02/18 11/02/18 11/02/18 Range/Units 06:11 06:36 08:32 WBC (4.0-11.0) K/uL RBC (4.50-5.90) M/uL Hgb (13.0-17.0) g/dL Hct (38.0-50.0) % MCV (80.0-98.0) fL MCH (27.0-32.0) pg MCHC (31.0-37.0) g/dL RDW Std Deviation (28.0-62.0) fl RDW Coeff of Nery (11.0-15.0) % Plt Count (150-400) K/uL Add Manual Diff Neutrophils % (Manual) (48.0-80.0) % Band Neutrophils % % Lymphocytes % (Manual) (16.0-40.0) % Monocytes % (Manual) (0.0-15.0) % Nucleated RBC % /100WBC Absolute Seg Neuts (1.4-5.7) Band Neutrophils # Lymphocytes # (Manual) (0.6-2.4) Monocytes # (Manual) (0.0-0.8) Nucleated RBCs # K/uL Sodium 133 L (136-148) mmol/L Potassium 3.9 (3.5-5.1) mmol/L Chloride 103 (98-107) mmol/L Carbon Dioxide 21.6 (21.0-32.0) mmol/L BUN 20 H (7.0-18.0) mg/dL Creatinine 1.0 (0.8-1.3) mg/dL Est Cr Clr Drug Dosing 70.00 mL/min Estimated GFR (MDRD) > 60.0 ml/min Glucose 58 L (74-106) mg/dL POC Glucose 59 L 98 (60-110) mg/dL Calcium 8.6 (8.5-10.1) mg/dL Total Bilirubin 1.7 H (0.2-1.0) mg/dL AST 184 H (15-37) IU/L ALT 48 (14-63) IU/L Alkaline Phosphatase 1022 H (46-116) U/L Total Protein 5.3 L (6.4-8.2) g/dL Albumin 1.4 L (3.4-5.0) g/dL Globulin 3.9 (2.6-4.0) g/dL Albumin/Globulin Ratio 0.4 L (0.9-1.6) 11/02/18 Range/Units 11:43 WBC (4.0-11.0) K/uL RBC (4.50-5.90) M/uL Hgb (13.0-17.0) g/dL Hct (38.0-50.0) % MCV (80.0-98.0) fL MCH (27.0-32.0) pg MCHC (31.0-37.0) g/dL RDW Std Deviation (28.0-62.0) fl RDW Coeff of Nery (11.0-15.0) % Plt Count (150-400) K/uL Add Manual Diff Neutrophils % (Manual) (48.0-80.0) % Band Neutrophils % % Lymphocytes % (Manual) (16.0-40.0) % Monocytes % (Manual) (0.0-15.0) % Nucleated RBC % /100WBC Absolute Seg Neuts (1.4-5.7) Band Neutrophils # Lymphocytes # (Manual) (0.6-2.4) Monocytes # (Manual) (0.0-0.8) Nucleated RBCs # K/uL Sodium (136-148) mmol/L Potassium (3.5-5.1) mmol/L Chloride (98-107) mmol/L Carbon Dioxide (21.0-32.0) mmol/L BUN (7.0-18.0) mg/dL Creatinine (0.8-1.3) mg/dL Est Cr Clr Drug Dosing mL/min Estimated GFR (MDRD) ml/min Glucose (74-106) mg/dL POC Glucose 62 (60-110) mg/dL Calcium (8.5-10.1) mg/dL Total Bilirubin (0.2-1.0) mg/dL AST (15-37) IU/L ALT (14-63) IU/L Alkaline Phosphatase (46-116) U/L Total Protein (6.4-8.2) g/dL Albumin (3.4-5.0) g/dL Globulin (2.6-4.0) g/dL Albumin/Globulin Ratio (0.9-1.6) Maycol Results Last 24 Hours: Microbiology 10/29/18 00:02 Aerobic Blood Culture - Preliminary Blood - Venous - Lab Draw NO GROWTH AFTER 4 DAYS Anaerobic Blood Culture - Preliminary NO GROWTH AFTER 4 DAYS 10/28/18 23:40 Aerobic Blood Culture - Preliminary Blood - Venous NO GROWTH AFTER 4 DAYS Anaerobic Blood Culture - Preliminary NO GROWTH AFTER 4 DAYS Med Orders - Current: Current Medications Sterile Water 114 ml/ Acetic (Acid 6 ml) 0 ml TOP BEDTIME [facility] Last Admin: 11/01/18 21:51 Dose: 1 bottle Enoxaparin Sodium (Lovenox) 80 mg SUBCUT Q12H [facility] Last Admin: 11/02/18 08:33 Dose: 80 mg Fentanyl (Duragesic) 100 mcg TRDERM Q72H [facility] Last Admin: 11/01/18 03:02 Dose: 100 mcg Gabapentin (Neurontin) 300 mg PO BID [facility] Last Admin: 11/02/18 08:33 Dose: 300 mg Hydromorphone HCl (Dilaudid) 2 mg PO Q4H PRN PRN Reason: Pain Last Admin: 11/02/18 10:36 Dose: 2 mg Levofloxacin/Dextrose 750 mg/ (Premix) 150 mls @ 100 mls/hr IV Q24H [facility] Last Admin: 11/01/18 22:50 Dose: 100 mls/hr Metronidazole 500 mg/ Premix 100 mls @ 100 mls/hr IV Q6H [facility] Last Admin: 11/02/18 08:32 Dose: 100 mls/hr Insulin Aspart (Novolog) 0 unit SUBCUT TIDAC [facility]; Protocol Last Admin: 11/02/18 11:50 Dose: Not Given Trelegy Ellipta 1 each PO DAILY [facility] Last Admin: 11/02/18 08:51 Dose: 1 each Tresiba 1 each SUBCUT DAILY [facility] Last Admin: 11/01/18 08:44 Dose: 1 each Sodium Hypochlorite (Dakin's 1/2 Strength) 0 ml TOP DAILY [facility] Last Admin: 11/02/18 08:51 Dose: 1 applic Discontinued Medications Atorvastatin Calcium (Lipitor) 40 mg PO DAILY [facility] Last Admin: 10/30/18 10:31 Dose: 40 mg Gabapentin (Neurontin) 300 mg PO DAILY [facility] Last Admin: 10/31/18 09:06 Dose: 300 mg Vancomycin HCl 1.5 gm/ Sodium (Chloride) 500 mls @ 333.333 mls/hr IV Q12H [facility] Last Admin: 10/30/18 00:12 Dose: 333.333 mls/hr Sodium Chloride (Normal Saline) 1,000 mls @ 125 mls/hr IV ASDIRECTED [facility] Last Admin: 10/30/18 07:11 Dose: 125 mls/hr Metronidazole 500 mg/ Premix 100 mls @ 100 mls/hr IV QID [facility] Last Admin: 10/31/18 15:22 Dose: 100 mls/hr Loperamide HCl (Imodium) 0 mg PO ASDIRECTED PRN PRN Reason: Diarrhea Non-Formulary Medication (Fentanyl [Fentanyl]) 1 patch TD Q72H PRN PRN Reason: Pain Non-Formulary Medication (Insulin Degludec [Tresiba]) 30 units INJECT ASDIRECTED [facility] Tresiba 30 each SUBCUT DAILY [facility] Last Admin: 10/30/18 10:35 Dose: 30 each Acetic Acid 0.25% (Solution) 0 each TOP BEDTIME [facility] Vancomycin HCl (Pharmacy To Dose - Vancomycin) 1 dose .XX ASDIRECTED [facility] - Exam General: Alert, Oriented Neck: Supple Lungs: Clear to Auscultation, Normal Respiratory Effort Cardiovascular: Regular Rate, Regular Rhythm GI/Abdominal Exam: Soft, Non-Tender Back Exam: Paraspinal Tenderness Skin: Warm, Dry, Intact - Problem List Review Problem List Initiated/Reviewed/Updated: Yes - My Orders Last 24 Hours: My Active Orders 11/03/18 05:11 CBC WITH AUTO DIFF [HEME] AM CMP [COMPREHENSIVE METABOLIC PN,CMP] [CHEM] AM - Plan Plan:: 63 -year-old male with significant medical history of metastatic colorectal cancer being admitted for a urinary tract infection and general debility. Problems: #1. Urinary tract infection with possible involvement of the GI tract: continue Levaquin and Flagyl 2. Sacral ulcers: Continue with dressing per home routine the ulcer does not appear to be infected 3. Metastatic colorectal cancer Patient is wanting [facility] placement. is concerned that if he goes to [facility] he would regress in his ADLS as when he is at home she encourages him to be as independent as possible. I spoke with regarding his advanced metastatic disease and his poor prognosis. appears to be more accepting. Will need to have more discussion about what will be willing or able to due at home and what the eventual needs and wants of the patient. Dispo may be home or [facility] and with or without hospice pending further discussion.
[2018-11-02] MEDS: ACETIC ACID TOP SCH ×2 (21:25)
[2018-11-02] MEDS: [UNRECOGNIZED DRUG - OTHER] TOP SCH ×2 (21:25)
[2018-11-02] MEDS: Levofloxacin/Dextrose 5%-Water 750 MG in Premix Bag 1 BAG IV SCH (23:25)
[2018-11-03] MEDS: metroNIDAZOLE/Normal Saline 500 MG in Premix Bag 1 BAG IV SCH ×4 (03:14→21:53)
[2018-11-03] MEDS: HYDROmorphone 2 MG Tab PO PRN ×5 (03:31→21:43)
[2018-11-03] MEDS: Insulin Aspart 100 Units/ML 3 ML Pen SUBCUT SCH ×3 (06:33→19:37)
[2018-11-03 06:46] LABS: CHLORIDE,CL 103 mmol/L (98-107); SODIUM,NA 131 mmol/L (136-148)
[2018-11-03] MEDS ORDERED: Ondansetron 4 MG/2 ML SDV IVPUSH PRN (08:07)
[2018-11-03] MEDS: Gabapentin 300 MG Cap PO SCH ×2 (08:33→21:43)
[2018-11-03] MEDS: Enoxaparin 100 MG/1 ML Syringe SUBCUT SCH ×3 (08:38→21:43)
--- NOTE | 2018-11-03 09:39 | PCM.PN ---
- General Info Date of Service: 11/03/18 Admission Dx/Problem (Free Text): Admission Diagnosis/Problem Admission Diagnosis/Problem UTI (urinary tract infection), uncomplicated Subjective Update: Reports feeling weak today and continues to have RUQ pain and reports it feels firm. Nausea this morning. No chest pain or SOB. Functional Status: Reports: Pain Controlled, Tolerating Diet. Denies: Ambulating - Review of Systems General: Reports: Weakness (generalized.). Denies: Fever Pulmonary: Reports: No Symptoms. Denies: Shortness of Breath Cardiovascular: Reports: No Symptoms. Denies: Chest Pain Gastrointestinal: Reports: Abdominal Pain (RUQ), Nausea. Denies: Vomiting Genitourinary: Reports: No Symptoms. Denies: Dysuria, Frequency, Burning Musculoskeletal: Reports: No Symptoms Skin: Reports: No Symptoms Neurological: Reports: No Symptoms Psychiatric: Reports: No Symptoms - Patient Data Vitals - Most Recent: Last Vital Signs Temp 97.6 F 11/03/18 04:46 Pulse 103 H 11/03/18 04:46 Resp 18 11/03/18 04:46 BP 106/62 11/03/18 04:46 Pulse Ox 95 11/03/18 04:46 Weight - Most Recent: 83 kg I&O - Last 24 Hours: Intake & Output 11/02/18 11/03/18 11/03/18 22:59 06:59 14:59 Intake Total 550 850 Output Total 1250 400 Balance -700 450 Lab Results Last 24 Hours: Laboratory Results - last 24 hr 11/02/18 11/02/18 11/02/18 Range/Units 08:32 11:43 13:50 WBC (4.0-11.0) K/uL RBC (4.50-5.90) M/uL Hgb (13.0-17.0) g/dL Hct (38.0-50.0) % MCV (80.0-98.0) fL MCH (27.0-32.0) pg MCHC (31.0-37.0) g/dL RDW Std Deviation (28.0-62.0) fl RDW Coeff of Nery (11.0-15.0) % Plt Count (150-400) K/uL Add Manual Diff Neutrophils % (Manual) (48.0-80.0) % Band Neutrophils % % Lymphocytes % (Manual) (16.0-40.0) % Nucleated RBC % /100WBC Absolute Seg Neuts (1.4-5.7) Band Neutrophils # Lymphocytes # (Manual) (0.6-2.4) Nucleated RBCs # K/uL Sodium (136-148) mmol/L Potassium (3.5-5.1) mmol/L Chloride (98-107) mmol/L Carbon Dioxide (21.0-32.0) mmol/L BUN (7.0-18.0) mg/dL Creatinine (0.8-1.3) mg/dL Est Cr Clr Drug Dosing mL/min Estimated GFR (MDRD) ml/min Glucose (74-106) mg/dL POC Glucose 98 62 141 H (60-110) mg/dL Calcium (8.5-10.1) mg/dL Total Bilirubin (0.2-1.0) mg/dL AST (15-37) IU/L ALT (14-63) IU/L Alkaline Phosphatase (46-116) U/L Total Protein (6.4-8.2) g/dL Albumin (3.4-5.0) g/dL Globulin (2.6-4.0) g/dL Albumin/Globulin Ratio (0.9-1.6) 11/02/18 11/02/18 11/03/18 Range/Units 16:31 21:23 05:35 WBC 19.58 H (4.0-11.0) K/uL RBC 4.69 (4.50-5.90) M/uL Hgb 9.3 L (13.0-17.0) g/dL Hct 30.7 L (38.0-50.0) % MCV 65.5 L (80.0-98.0) fL MCH 19.8 L (27.0-32.0) pg MCHC 30.3 L (31.0-37.0) g/dL RDW Std Deviation 52.4 (28.0-62.0) fl RDW Coeff of Nery 23 H (11.0-15.0) % Plt Count 88 L (150-400) K/uL Add Manual Diff YES Neutrophils % (Manual) 84 H (48.0-80.0) % Band Neutrophils % 8 % Lymphocytes % (Manual) 8 L (16.0-40.0) % Nucleated RBC % 0.0 /100WBC Absolute Seg Neuts 16.4 H (1.4-5.7) Band Neutrophils # 1.6 Lymphocytes # (Manual) 1.6 (0.6-2.4) Nucleated RBCs # 0 K/uL Sodium (136-148) mmol/L Potassium (3.5-5.1) mmol/L Chloride (98-107) mmol/L Carbon Dioxide (21.0-32.0) mmol/L BUN (7.0-18.0) mg/dL Creatinine (0.8-1.3) mg/dL Est Cr Clr Drug Dosing mL/min Estimated GFR (MDRD) ml/min Glucose (74-106) mg/dL POC Glucose 105 113 H (60-110) mg/dL Calcium (8.5-10.1) mg/dL Total Bilirubin (0.2-1.0) mg/dL AST (15-37) IU/L ALT (14-63) IU/L Alkaline Phosphatase (46-116) U/L Total Protein (6.4-8.2) g/dL Albumin (3.4-5.0) g/dL Globulin (2.6-4.0) g/dL Albumin/Globulin Ratio (0.9-1.6) 11/03/18 11/03/18 Range/Units 05:35 06:26 WBC (4.0-11.0) K/uL RBC (4.50-5.90) M/uL Hgb (13.0-17.0) g/dL Hct (38.0-50.0) % MCV (80.0-98.0) fL MCH (27.0-32.0) pg MCHC (31.0-37.0) g/dL RDW Std Deviation (28.0-62.0) fl RDW Coeff of Nery (11.0-15.0) % Plt Count (150-400) K/uL Add Manual Diff Neutrophils % (Manual) (48.0-80.0) % Band Neutrophils % % Lymphocytes % (Manual) (16.0-40.0) % Nucleated RBC % /100WBC Absolute Seg Neuts (1.4-5.7) Band Neutrophils # Lymphocytes # (Manual) (0.6-2.4) Nucleated RBCs # K/uL Sodium 131 L (136-148) mmol/L Potassium 4.2 (3.5-5.1) mmol/L Chloride 103 (98-107) mmol/L Carbon Dioxide 20.9 L (21.0-32.0) mmol/L BUN 20 H (7.0-18.0) mg/dL Creatinine 0.9 (0.8-1.3) mg/dL Est Cr Clr Drug Dosing 77.78 mL/min Estimated GFR (MDRD) > 60.0 ml/min Glucose 116 H (74-106) mg/dL POC Glucose 107 (60-110) mg/dL Calcium 8.5 (8.5-10.1) mg/dL Total Bilirubin 2.2 H (0.2-1.0) mg/dL AST 160 H (15-37) IU/L ALT 36 (14-63) IU/L Alkaline Phosphatase 878 H (46-116) U/L Total Protein 4.8 L (6.4-8.2) g/dL Albumin 1.2 L (3.4-5.0) g/dL Globulin 3.6 (2.6-4.0) g/dL Albumin/Globulin Ratio 0.3 L (0.9-1.6) Maycol Results Last 24 Hours: Microbiology 10/29/18 00:02 Aerobic Blood Culture - Final Blood - Venous - Lab Draw NO GROWTH AFTER 5 DAYS Anaerobic Blood Culture - Final NO GROWTH AFTER 5 DAYS 10/28/18 23:40 Aerobic Blood Culture - Final Blood - Venous NO GROWTH AFTER 5 DAYS Anaerobic Blood Culture - Final NO GROWTH AFTER 5 DAYS Med Orders - Current: Current Medications Sterile Water 114 ml/ Acetic (Acid 6 ml) 0 ml TOP BEDTIME [facility] Last Admin: 11/02/18 21:25 Dose: 1 bottle Enoxaparin Sodium (Lovenox) 80 mg SUBCUT Q12H [facility] Last Admin: 11/03/18 08:38 Dose: Not Given Fentanyl (Duragesic) 100 mcg TRDERM Q72H [facility] Last Admin: 11/01/18 03:02 Dose: 100 mcg Gabapentin (Neurontin) 300 mg PO BID [facility] Last Admin: 11/03/18 08:33 Dose: 300 mg Hydromorphone HCl (Dilaudid) 2 mg PO Q4H PRN PRN Reason: Pain Last Admin: 11/03/18 08:02 Dose: 2 mg Levofloxacin/Dextrose 750 mg/ (Premix) 150 mls @ 100 mls/hr IV Q24H [facility] Last Admin: 11/02/18 23:25 Dose: 100 mls/hr Metronidazole 500 mg/ Premix 100 mls @ 100 mls/hr IV Q6H [facility] Last Admin: 11/03/18 03:14 Dose: 100 mls/hr Insulin Aspart (Novolog) 0 unit SUBCUT TIDAC [facility]; Protocol Last Admin: 11/03/18 06:33 Dose: Not Given Ondansetron HCl (Zofran) 4 mg IVPUSH Q4H PRN PRN Reason: Nausea Last Admin: 11/03/18 08:33 Dose: 4 mg Trelegy Ellipta 1 each PO DAILY [facility] Last Admin: 11/02/18 08:51 Dose: 1 each Tresiba 0 each SUBCUT DAILY [facility] Sodium Hypochlorite (Dakin's 1/2 Strength) 0 ml TOP DAILY [facility] Last Admin: 11/02/18 08:51 Dose: 1 applic Discontinued Medications Atorvastatin Calcium (Lipitor) 40 mg PO DAILY [facility] Last Admin: 10/30/18 10:31 Dose: 40 mg Gabapentin (Neurontin) 300 mg PO DAILY [facility] Last Admin: 10/31/18 09:06 Dose: 300 mg Vancomycin HCl 1.5 gm/ Sodium (Chloride) 500 mls @ 333.333 mls/hr IV Q12H [facility] Last Admin: 10/30/18 00:12 Dose: 333.333 mls/hr Sodium Chloride (Normal Saline) 1,000 mls @ 125 mls/hr IV ASDIRECTED [facility] Last Admin: 10/30/18 07:11 Dose: 125 mls/hr Metronidazole 500 mg/ Premix 100 mls @ 100 mls/hr IV QID [facility] Last Admin: 10/31/18 15:22 Dose: 100 mls/hr Loperamide HCl (Imodium) 0 mg PO ASDIRECTED PRN PRN Reason: Diarrhea Non-Formulary Medication (Fentanyl [Fentanyl]) 1 patch TD Q72H PRN PRN Reason: Pain Non-Formulary Medication (Insulin Degludec [Tresiba]) 30 units INJECT ASDIRECTED [facility] Tresiba 30 each SUBCUT DAILY [facility] Last Admin: 02/14/19 10:35 Dose: 30 each Acetic Acid 0.25% (Solution) 0 each TOP BEDTIME [facility] Tresiba 1 each SUBCUT DAILY [facility] Last Admin: 11/02/18 13:00 Dose: Not Given Vancomycin HCl (Pharmacy To Dose - Vancomycin) 1 dose .XX ASDIRECTED [facility] - Exam General: Alert, Oriented, Cooperative, No Acute Distress Neck: Supple Lungs: Clear to Auscultation, Normal Respiratory Effort Cardiovascular: Regular Rate, Regular Rhythm GI/Abdominal Exam: Normal Bowel Sounds, Hepatomegaly (tender) Extremities: Pedal Edema (+3 pitting to LLE. +1 pitting to RLE.) Wound/Incisions: Decubitis (sacral, ) Neurological: No New Focal Deficit Psy/Mental Status: Alert, Normal Affect, Normal Mood - Problem List & Annotations (1) UTI (urinary tract infection) SNOMED Code(s): 65000722 Code(s): N39.0 - URINARY TRACT INFECTION, SITE NOT SPECIFIED Status: Acute Current Visit: Yes Qualifiers: Urinary tract infection type: catheter-associated UTI Indwelling urinary catheter type: indwelling urethral catheter Encounter type: initial encounter Qualified Code(s): T83.511A - Infection and inflammatory reaction due to indwelling urethral catheter, initial encounter; N39.0 - Urinary tract infection , site not specified (2) TRE (acute kidney injury) SNOMED Code(s): 95213649 Code(s): N17.9 - ACUTE KIDNEY FAILURE, UNSPECIFIED Status: Acute Current Visit: Yes (3) Hyponatremia SNOMED Code(s): 52559330 Code(s): E87.1 - HYPO-OSMOLALITY AND HYPONATREMIA Status: Acute Current Visit: Yes (4) Metastatic cancer SNOMED Code(s): 399850161 Code(s): C80.1 - MALIGNANT (PRIMARY) NEOPLASM, UNSPECIFIED Status: Chronic Priority: Medium Current Visit: Yes (5) COPD (chronic obstructive pulmonary disease) SNOMED Code(s): 69745361 Code(s): J44.9 - CHRONIC OBSTRUCTIVE PULMONARY DISEASE, UNSPECIFIED Status : Chronic Current Visit: No (6) HLD (hyperlipidemia) SNOMED Code(s): 15852475 Code(s): E78.5 - HYPERLIPIDEMIA, UNSPECIFIED Status: Chronic Current Visit: No (7) HTN (hypertension) SNOMED Code(s): 48509879 Code(s): I10 - ESSENTIAL (PRIMARY) HYPERTENSION Status: Chronic Current Visit: No (8) Type 2 diabetes mellitus SNOMED Code(s): 05608576 Code(s): E11.9 - TYPE 2 DIABETES MELLITUS WITHOUT COMPLICATIONS Status: Chronic Current Visit: No (9) Colorectal cancer SNOMED Code(s): 656389092 Code(s): C19 - MALIGNANT NEOPLASM OF RECTOSIGMOID JUNCTION Status: Chronic Current Visit: Yes (10) Colostomy in place SNOMED Code(s): 712964047, 020495641 Code(s): Z93.3 - COLOSTOMY STATUS Status: Chronic Current Visit: Yes (11) Chronic indwelling Pablo catheter SNOMED Code(s): 927530551 Code(s): Z92.89 - PERSONAL HISTORY OF OTHER MEDICAL TREATMENT Status: Chronic Current Visit: Yes (12) Sacral decubitus ulcer, stage IV SNOMED Code(s): 541340889, 643384000 Code(s): L89.154 - PRESSURE ULCER OF SACRAL REGION, STAGE 4 Status: Chronic Current Visit: Yes (13) Protein malnutrition SNOMED Code(s): 537829378 Code(s): E46 - UNSPECIFIED PROTEIN-CALORIE MALNUTRITION Status: Chronic Current Visit: Yes (14) VTE (venous thromboembolism) SNOMED Code(s): 279969156 Code(s): I82.90 - ACUTE EMBOLISM AND THROMBOSIS OF UNSPECIFIED VEIN Status : Chronic Current Visit: Yes - Problem List Review Problem List Initiated/Reviewed/Updated: Yes - My Orders Last 24 Hours: My Active Orders 11/03/18 08:07 Ondansetron [Zofran] 4 mg IVPUSH Q4H PRN - Plan Plan:: 63 -year-old male with significant medical history of metastatic colorectal cancer being admitted for a urinary tract infection and general debility. 63 yo male with metastatic colorectal cancer admitted for UTI. 1. UTI: UC reveals paris sensitive E coli. Leukocytosis 19,000 today. Continue with Levaquin. 2. Cholecystitis: Added Flagyl on Saturday, continue Levaquin. Continues to have RUQ pain. Hepatomegaly noted. 3. Hyponatremia:Stable. 4. Sacral ulcer: Continue dressing changes per home routine. Continues to be clean no signs of infection 5. Hx DVT: Continue Lovenox 80mg BID. Platelets 88,000 today. 6. DM Type 2: Continue Novolog SSI. 7. Metastatic colorectal ca: Continue pain management. Poor prognosis, will speak with today regarding Hospice care. 8. Generalized weakness: Consult PT. Continues to be weak, needing 2-3 near max assist. 9. DM Type 2: Tresiba cut in half due to hypoglycemia. Continue to monitor. Dispo: Pending placement Spoke with abhijit and his regarding poor prognosis and labwork today. We will consult Hospice today. Continue plan as above until decision is made.
[2018-11-03] MEDS: TRESIBA SUBCUT SCH (09:53)
[2018-11-03] MEDS: Sodium Hypochlorite 0.25% Soln 473 ML TOP SCH (09:54)
[2018-11-03] MEDS: TRELEGY ELLIPTA PO SCH (11:38)
[2018-11-03] MEDS: [UNRECOGNIZED DRUG - OTHER] TOP SCH ×2 (23:16)
[2018-11-03] MEDS: ACETIC ACID TOP SCH ×2 (23:16)
[2018-11-03] MEDS: Levofloxacin/Dextrose 5%-Water 750 MG in Premix Bag 1 BAG IV SCH (23:16)
[2018-11-04] MEDS: HYDROmorphone 2 MG Tab PO PRN ×4 (01:56→20:50)
[2018-11-04] MEDS: metroNIDAZOLE/Normal Saline 500 MG in Premix Bag 1 BAG IV SCH ×4 (02:50→21:02)
[2018-11-04] MEDS: fentaNYL 100 MCG/HR Transdermal Patch TRDERM SCH (02:50)
[2018-11-04 05:43] LABS: CHLORIDE,CL 103 mmol/L (98-107); SODIUM,NA 132 mmol/L (136-148)
[2018-11-04] MEDS: Insulin Aspart 100 Units/ML 3 ML Pen SUBCUT SCH ×3 (07:00→17:45)
[2018-11-04] MEDS: Gabapentin 300 MG Cap PO SCH ×2 (09:00→20:50)
[2018-11-04] MEDS: Sodium Hypochlorite 0.25% Soln 473 ML TOP SCH (09:01)
[2018-11-04] MEDS: TRELEGY ELLIPTA PO SCH (09:02)
[2018-11-04] MEDS: TRESIBA SUBCUT SCH (09:02)
[2018-11-04] MEDS: Enoxaparin 100 MG/1 ML Syringe SUBCUT SCH (09:02)
--- NOTE | 2018-11-04 09:13 | PCM.PN ---
- General Info Date of Service: 11/04/18 Admission Dx/Problem (Free Text): Admission Diagnosis/Problem Admission Diagnosis/Problem UTI (urinary tract infection), uncomplicated Subjective Update: Reports pain is not controlled well, 04/25 this morning. No other concerns. Has made decision for Hospice. Would like to stop labwork, but continue antibiotics until he goes home. Functional Status: Reports: Tolerating Diet. Denies: Pain Controlled, Ambulating - Review of Systems General: Reports: Weakness (generalized) Pulmonary: Reports: No Symptoms. Denies: Shortness of Breath Cardiovascular: Reports: Edema (BLE, stable.). Denies: Chest Pain Gastrointestinal: Reports: Abdominal Pain Genitourinary: Reports: No Symptoms Musculoskeletal: Reports: No Symptoms Skin: Reports: No Symptoms Neurological: Reports: No Symptoms Psychiatric: Reports: No Symptoms - Patient Data Vitals - Most Recent: Last Vital Signs Temp 97.9 F 11/04/18 08:00 Pulse 93 11/04/18 08:00 Resp 17 11/04/18 08:00 BP 97/57 L 11/04/18 08:00 Pulse Ox 93 L 11/04/18 08:00 Weight - Most Recent: 83 kg I&O - Last 24 Hours: Intake & Output 11/03/18 11/04/18 11/04/18 22:59 06:59 14:59 Intake Total 960 500 Output Total 680 600 Balance 280 -100 Lab Results Last 24 Hours: Laboratory Results - last 24 hr 11/03/18 11/03/18 11/03/18 Range/Units 09:52 12:10 12:10 WBC (4.0-11.0) K/uL RBC (4.50-5.90) M/uL Hgb (13.0-17.0) g/dL Hct (38.0-50.0) % MCV (80.0-98.0) fL MCH (27.0-32.0) pg MCHC (31.0-37.0) g/dL RDW Std Deviation (28.0-62.0) fl RDW Coeff of Nery (11.0-15.0) % Plt Count (150-400) K/uL Add Manual Diff Neutrophils % (Manual) (48.0-80.0) % Band Neutrophils % % Lymphocytes % (Manual) (16.0-40.0) % Monocytes % (Manual) (0.0-15.0) % Nucleated RBC % /100WBC Absolute Seg Neuts (1.4-5.7) Band Neutrophils # Lymphocytes # (Manual) (0.6-2.4) Monocytes # (Manual) (0.0-0.8) Nucleated RBCs # K/uL INR 1.80 Sodium (136-148) mmol/L Potassium (3.5-5.1) mmol/L Chloride (98-107) mmol/L Carbon Dioxide (21.0-32.0) mmol/L BUN (7.0-18.0) mg/dL Creatinine (0.8-1.3) mg/dL Est Cr Clr Drug Dosing mL/min Estimated GFR (MDRD) ml/min Glucose (74-106) mg/dL POC Glucose 148 H 108 (60-110) mg/dL Calcium (8.5-10.1) mg/dL Total Bilirubin (0.2-1.0) mg/dL AST (15-37) IU/L ALT (14-63) IU/L Alkaline Phosphatase (46-116) U/L Total Protein (6.4-8.2) g/dL Albumin (3.4-5.0) g/dL Globulin (2.6-4.0) g/dL Albumin/Globulin Ratio (0.9-1.6) 11/03/18 11/04/18 11/04/18 Range/Units 16:24 05:00 05:00 WBC 21.11 H (4.0-11.0) K/uL RBC 4.49 L (4.50-5.90) M/uL Hgb 9.1 L (13.0-17.0) g/dL Hct 29.3 L (38.0-50.0) % MCV 65.3 L (80.0-98.0) fL MCH 20.3 L (27.0-32.0) pg MCHC 31.1 (31.0-37.0) g/dL RDW Std Deviation 51.0 (28.0-62.0) fl RDW Coeff of Nery 23 H (11.0-15.0) % Plt Count 75 L (150-400) K/uL Add Manual Diff YES Neutrophils % (Manual) 88 H (48.0-80.0) % Band Neutrophils % 4 % Lymphocytes % (Manual) 7 L (16.0-40.0) % Monocytes % (Manual) 1 (0.0-15.0) % Nucleated RBC % 0.0 /100WBC Absolute Seg Neuts 18.6 H (1.4-5.7) Band Neutrophils # 0.8 Lymphocytes # (Manual) 1.5 (0.6-2.4) Monocytes # (Manual) 0.2 (0.0-0.8) Nucleated RBCs # 0 K/uL INR Sodium 132 L (136-148) mmol/L Potassium 4.6 (3.5-5.1) mmol/L Chloride 103 (98-107) mmol/L Carbon Dioxide 18.8 L (21.0-32.0) mmol/L BUN 26 H (7.0-18.0) mg/dL Creatinine 1.0 (0.8-1.3) mg/dL Est Cr Clr Drug Dosing 70.00 mL/min Estimated GFR (MDRD) > 60.0 ml/min Glucose 116 H (74-106) mg/dL POC Glucose 96 (60-110) mg/dL Calcium 8.3 L (8.5-10.1) mg/dL Total Bilirubin 2.1 H (0.2-1.0) mg/dL AST 183 H (15-37) IU/L ALT 33 (14-63) IU/L Alkaline Phosphatase 867 H (46-116) U/L Total Protein 4.9 L (6.4-8.2) g/dL Albumin 1.2 L (3.4-5.0) g/dL Globulin 3.7 (2.6-4.0) g/dL Albumin/Globulin Ratio 0.3 L (0.9-1.6) Med Orders - Current: Current Medications Sterile Water 114 ml/ Acetic (Acid 6 ml) 0 ml TOP BEDTIME [facility] Last Admin: 11/03/18 23:16 Dose: 1 bottle Enoxaparin Sodium (Lovenox) 80 mg SUBCUT Q12H [facility] Last Admin: 11/04/18 09:02 Dose: Not Given Fentanyl (Duragesic) 100 mcg TRDERM Q72H [facility] Last Admin: 11/04/18 02:50 Dose: 100 mcg Gabapentin (Neurontin) 300 mg PO BID [facility] Last Admin: 11/04/18 09:00 Dose: 300 mg Hydromorphone HCl (Dilaudid) 2 mg PO Q4H PRN PRN Reason: Pain Last Admin: 11/04/18 09:07 Dose: 2 mg Levofloxacin/Dextrose 750 mg/ (Premix) 150 mls @ 100 mls/hr IV Q24H [facility] Last Admin: 11/03/18 23:16 Dose: 100 mls/hr Metronidazole 500 mg/ Premix 100 mls @ 100 mls/hr IV Q6H [facility] Last Admin: 11/04/18 09:00 Dose: 100 mls/hr Insulin Aspart (Novolog) 0 unit SUBCUT TIDAC [facility]; Protocol Last Admin: 11/04/18 07:00 Dose: Not Given Ondansetron HCl (Zofran) 4 mg IVPUSH Q4H PRN PRN Reason: Nausea Last Admin: 11/03/18 08:33 Dose: 4 mg Trelegy Ellipta 1 each PO DAILY [facility] Last Admin: 11/04/18 09:02 Dose: 1 each Tresiba 0 each SUBCUT DAILY [facility] Last Admin: 11/04/18 09:02 Dose: 1 each Sodium Hypochlorite (Dakin's 1/2 Strength) 0 ml TOP DAILY [facility] Last Admin: 11/04/18 09:01 Dose: 1 applic Discontinued Medications Atorvastatin Calcium (Lipitor) 40 mg PO DAILY [facility] Last Admin: 10/30/18 10:31 Dose: 40 mg Gabapentin (Neurontin) 300 mg PO DAILY [facility] Last Admin: 10/31/18 09:06 Dose: 300 mg Vancomycin HCl 1.5 gm/ Sodium (Chloride) 500 mls @ 333.333 mls/hr IV Q12H [facility] Last Admin: 10/30/18 00:12 Dose: 333.333 mls/hr Sodium Chloride (Normal Saline) 1,000 mls @ 125 mls/hr IV ASDIRECTED [facility] Last Admin: 10/30/18 07:11 Dose: 125 mls/hr Metronidazole 500 mg/ Premix 100 mls @ 100 mls/hr IV QID [facility] Last Admin: 10/31/18 15:22 Dose: 100 mls/hr Loperamide HCl (Imodium) 0 mg PO ASDIRECTED PRN PRN Reason: Diarrhea Non-Formulary Medication (Fentanyl [Fentanyl]) 1 patch TD Q72H PRN PRN Reason: Pain Non-Formulary Medication (Insulin Degludec [Tresiba]) 30 units INJECT ASDIRECTED [facility] Tresiba 30 each SUBCUT DAILY [facility] Last Admin: 10/30/18 10:35 Dose: 30 each Acetic Acid 0.25% (Solution) 0 each TOP BEDTIME [facility] Tresiba 1 each SUBCUT DAILY [facility] Last Admin: 11/02/18 13:00 Dose: Not Given Vancomycin HCl (Pharmacy To Dose - Vancomycin) 1 dose .XX ASDIRECTED [facility] - Exam General: Alert, Oriented, Cooperative, No Acute Distress Neck: Supple Lungs: Clear to Auscultation, Normal Respiratory Effort Cardiovascular: Regular Rate, Regular Rhythm GI/Abdominal Exam: Normal Bowel Sounds, Soft, Tender (over liver), Hepatomegaly (tender to palpation) Extremities: Pedal Edema (+3 pitting to L leg and +1-2 pitting to R leg) Wound/Incisions: Healing Well, Decubitis (sacral wound, stage 4. dressing intact ) Neurological: No New Focal Deficit Psy/Mental Status: Alert, Normal Affect, Normal Mood - Problem List & Annotations (1) Palliative care status SNOMED Code(s): 378152023 Code(s): Z51.5 - ENCOUNTER FOR PALLIATIVE CARE Status: Acute Current Visit: Yes (2) UTI (urinary tract infection) SNOMED Code(s): 12142167 Code(s): N39.0 - URINARY TRACT INFECTION, SITE NOT SPECIFIED Status: Acute Current Visit: Yes Qualifiers: Urinary tract infection type: catheter-associated UTI Indwelling urinary catheter type: indwelling urethral catheter Encounter type: initial encounter Qualified Code(s): T83.511A - Infection and inflammatory reaction due to indwelling urethral catheter, initial encounter; N39.0 - Urinary tract infection , site not specified (3) TRE (acute kidney injury) SNOMED Code(s): 99677356 Code(s): N17.9 - ACUTE KIDNEY FAILURE, UNSPECIFIED Status: Resolved Current Visit: Yes (4) Hyponatremia SNOMED Code(s): 15264572 Code(s): E87.1 - HYPO-OSMOLALITY AND HYPONATREMIA Status: Acute Current Visit: Yes (5) Metastatic cancer SNOMED Code(s): 433818604 Code(s): C80.1 - MALIGNANT (PRIMARY) NEOPLASM, UNSPECIFIED Status: Chronic Priority: Medium Current Visit: Yes (6) COPD (chronic obstructive pulmonary disease) SNOMED Code(s): 96628941 Code(s): J44.9 - CHRONIC OBSTRUCTIVE PULMONARY DISEASE, UNSPECIFIED Status : Chronic Current Visit: No (7) HLD (hyperlipidemia) SNOMED Code(s): 71740369 Code(s): E78.5 - HYPERLIPIDEMIA, UNSPECIFIED Status: Chronic Current Visit: No (8) HTN (hypertension) SNOMED Code(s): 18543778 Code(s): I10 - ESSENTIAL (PRIMARY) HYPERTENSION Status: Chronic Current Visit: No (9) Type 2 diabetes mellitus SNOMED Code(s): 91116878 Code(s): E11.9 - TYPE 2 DIABETES MELLITUS WITHOUT COMPLICATIONS Status: Chronic Current Visit: No (10) Colorectal cancer SNOMED Code(s): 478892684 Code(s): C19 - MALIGNANT NEOPLASM OF RECTOSIGMOID JUNCTION Status: Chronic Current Visit: Yes (11) Colostomy in place SNOMED Code(s): 407838596, 232658307 Code(s): Z93.3 - COLOSTOMY STATUS Status: Chronic Current Visit: Yes (12) Chronic indwelling Pablo catheter SNOMED Code(s): 984127278 Code(s): Z92.89 - PERSONAL HISTORY OF OTHER MEDICAL TREATMENT Status: Chronic Current Visit: Yes (13) Sacral decubitus ulcer, stage IV SNOMED Code(s): 159485559, 616951320 Code(s): L89.154 - PRESSURE ULCER OF SACRAL REGION, STAGE 4 Status: Chronic Current Visit: Yes (14) Protein malnutrition SNOMED Code(s): 705153968 Code(s): E46 - UNSPECIFIED PROTEIN-CALORIE MALNUTRITION Status: Chronic Current Visit: Yes (15) VTE (venous thromboembolism) SNOMED Code(s): 892448703 Code(s): I82.90 - ACUTE EMBOLISM AND THROMBOSIS OF UNSPECIFIED VEIN Status : Chronic Current Visit: Yes - Problem List Review Problem List Initiated/Reviewed/Updated: Yes - My Orders Last 24 Hours: My Active Orders 11/03/18 11:52 Consult to Hospice [CONS] Routine - Plan Plan:: 63 -year-old male with significant medical history of metastatic colorectal cancer being admitted for a urinary tract infection and general debility. Now palliative care, with plans for home hospice. 1. UTI: UC reveals paris sensitive E coli. Leukocytosis 19,000 today. Continue with Levaquin. 2. Cholecystitis: stable. Continue Flagyl and Levaquin. Continues to have RUQ pain. Hepatomegaly noted. Would like antibiotics until discharged home. He was told of worsening leukocytosis and liver function. 3. Hyponatremia:Stable. 4. Sacral ulcer: Continue dressing changes per home routine. Continues to be clean no signs of infection 5. Hx DVT: Platelets 75,000 today. Continue Lovenox, but will half dose to 40mg BID. 6. DM Type 2: Continue Novolog SSI. Monitor closely due to hypoglycemia. Tresiba cut in half. 7. Metastatic colorectal ca: Continue pain management, will increase Fentanyl patch to 125 mcg today, and increase PO Dilaudid to 4 mg every 4 hrs PRN and monitor for effectiveness. Poor prognosis, will speak with today regarding Hospice care. 8. Generalized weakness: PT will sign off due to palliative measures. Dispo: Pending placement. Personnel from Adult protective services will be here tomorrow to talk with Alejo alone without family. They will then assess home environment and notify us of when home is safe to discharge home to. Hospice is also reviewing home safety for their personnel to visit. Awaiting decisions on both.
[2018-11-04] MEDS ORDERED: fentaNYL 25 MCG/HR Transdermal Patch TRDERM SCH (09:15)
[2018-11-04] MEDS: ACETIC ACID TOP SCH ×2 (20:53)
[2018-11-04] MEDS: [UNRECOGNIZED DRUG - OTHER] TOP SCH ×2 (20:53)
[2018-11-04] MEDS ORDERED: Enoxaparin 100 MG/1 ML Syringe SUBCUT SCH (21:00)
[2018-11-04] MEDS: Levofloxacin/Dextrose 5%-Water 750 MG in Premix Bag 1 BAG IV SCH (22:20)
[2018-11-05] MEDS: Levofloxacin/Dextrose 5%-Water 750 MG in Premix Bag 1 BAG IV SCH ×2 (00:49→23:25)
[2018-11-05] MEDS: HYDROmorphone 2 MG Tab PO PRN ×5 (01:44→20:49)
[2018-11-05] MEDS: metroNIDAZOLE/Normal Saline 500 MG in Premix Bag 1 BAG IV SCH ×4 (02:31→20:45)
[2018-11-05] MEDS: Insulin Aspart 100 Units/ML 3 ML Pen SUBCUT SCH ×3 (07:57→17:55)
[2018-11-05] MEDS: TRELEGY ELLIPTA PO SCH (08:09)
[2018-11-05] MEDS: TRESIBA SUBCUT SCH ×2 (08:29→08:49)
[2018-11-05] MEDS: Gabapentin 300 MG Cap PO SCH ×2 (08:29→20:46)
[2018-11-05] MEDS: Sodium Hypochlorite 0.25% Soln 473 ML TOP SCH (08:31)
[2018-11-05] MEDS: Enoxaparin 40 MG/0.4 ML Syringe SUBCUT SCH ×2 (08:40→20:46)
--- NOTE | 2018-11-05 12:33 | PCM.PN ---
- General Info Date of Service: 11/05/18 Subjective Update: Stable pain well controlled awaiting [facility] assessment of home. - Patient Data Vitals - Most Recent: Last Vital Signs Temp 36.8 C 11/05/18 12:00 Pulse 108 H 11/05/18 12:00 Resp 22 H 11/05/18 12:00 BP 114/63 11/05/18 12:00 Pulse Ox 95 11/05/18 12:00 Weight - Most Recent: 83 kg I&O - Last 24 Hours: Intake & Output 11/04/18 11/05/18 11/05/18 22:59 06:59 14:59 Intake Total 736 490 100 Output Total 700 300 Balance 36 190 100 Lab Results Last 24 Hours: Laboratory Results - last 24 hr 11/04/18 11/05/18 11/05/18 Range/Units 17:19 06:03 11:30 POC Glucose 114 H 121 H 171 H (60-110) mg/dL Med Orders - Current: Current Medications Sterile Water 114 ml/ Acetic (Acid 6 ml) 0 ml TOP BEDTIME [facility] Last Admin: 11/04/18 20:53 Dose: 1 bottle Enoxaparin Sodium (Lovenox) 40 mg SUBCUT Q12H [facility] Last Admin: 11/05/18 08:40 Dose: Not Given Fentanyl (Duragesic) 100 mcg TRDERM Q72H [facility] Stop: 11/06/18 08:59 Last Admin: 11/04/18 02:50 Dose: 100 mcg Fentanyl (Duragesic) 25 mcg TRDERM Q72H [facility] Stop: 11/06/18 08:59 Last Admin: 11/04/18 09:45 Dose: 25 mcg Fentanyl (Duragesic) 100 mcg TRDERM Q72H [facility] Fentanyl (Duragesic) 25 mcg TRDERM Q72H [facility] Gabapentin (Neurontin) 300 mg PO BID [facility] Last Admin: 11/05/18 08:29 Dose: 300 mg Hydromorphone HCl (Dilaudid) 4 mg PO Q4H PRN PRN Reason: Pain Last Admin: 11/05/18 10:16 Dose: 4 mg Levofloxacin/Dextrose 750 mg/ (Premix) 150 mls @ 100 mls/hr IV Q24H [facility] Last Admin: 11/05/18 00:49 Dose: Not Given Metronidazole 500 mg/ Premix 100 mls @ 100 mls/hr IV Q6H [facility] Last Admin: 11/05/18 08:31 Dose: 100 mls/hr Insulin Aspart (Novolog) 0 unit SUBCUT TIDAC [facility]; Protocol Last Admin: 11/05/18 12:16 Dose: 2 units Miscellaneous Information (Remove Patch) 1 homer SANTAMARIA 11/06/18@0900 [facility] Stop: 11/06/18 09:01 Ondansetron HCl (Zofran) 4 mg IVPUSH Q4H PRN PRN Reason: Nausea Last Admin: 11/03/18 08:33 Dose: 4 mg Trelegy Ellipta 1 each PO DAILY [facility] Last Admin: 11/05/18 08:09 Dose: 1 each Tresiba 0 each SUBCUT DAILY [facility] Last Admin: 11/05/18 08:49 Dose: 1 each Sodium Hypochlorite (Dakin's 1/2 Strength) 0 ml TOP DAILY [facility] Last Admin: 11/05/18 08:31 Dose: 1 applic Discontinued Medications Atorvastatin Calcium (Lipitor) 40 mg PO DAILY [facility] Last Admin: 10/30/18 10:31 Dose: 40 mg Enoxaparin Sodium (Lovenox) 80 mg SUBCUT Q12H [facility] Last Admin: 11/04/18 09:02 Dose: Not Given Enoxaparin Sodium (Lovenox) 40 mg SUBCUT Q12H [facility] Last Admin: 11/04/18 20:52 Dose: 40 mg Gabapentin (Neurontin) 300 mg PO DAILY [facility] Last Admin: 10/31/18 09:06 Dose: 300 mg Hydromorphone HCl (Dilaudid) 2 mg PO Q4H PRN PRN Reason: Pain Last Admin: 11/04/18 09:07 Dose: 2 mg Vancomycin HCl 1.5 gm/ Sodium (Chloride) 500 mls @ 333.333 mls/hr IV Q12H [facility] Last Admin: 10/30/18 00:12 Dose: 333.333 mls/hr Sodium Chloride (Normal Saline) 1,000 mls @ 125 mls/hr IV ASDIRECTED [facility] Last Admin: 10/30/18 07:11 Dose: 125 mls/hr Metronidazole 500 mg/ Premix 100 mls @ 100 mls/hr IV QID [facility] Last Admin: 10/31/18 15:22 Dose: 100 mls/hr Loperamide HCl (Imodium) 0 mg PO ASDIRECTED PRN PRN Reason: Diarrhea Non-Formulary Medication (Fentanyl [Fentanyl]) 1 patch TD Q72H PRN PRN Reason: Pain Non-Formulary Medication (Insulin Degludec [Tresiba]) 30 units INJECT ASDIRECTED [facility] Tresiba 30 each SUBCUT DAILY [facility] Last Admin: 10/30/18 10:35 Dose: 30 each Acetic Acid 0.25% (Solution) 0 each TOP BEDTIME [facility] Tresiba 1 each SUBCUT DAILY [facility] Last Admin: 11/02/18 13:00 Dose: Not Given Tresiba 0 each SUBCUT DAILY [facility] Last Admin: 11/04/18 09:02 Dose: 1 each Vancomycin HCl (Pharmacy To Dose - Vancomycin) 1 dose .XX ASDIRECTED [facility] - Exam Lungs: Clear to Auscultation, Normal Respiratory Effort Cardiovascular: Regular Rate, Regular Rhythm - Problem List Review Problem List Initiated/Reviewed/Updated: Yes - Plan Plan:: 63 -year-old male with significant medical history of metastatic colorectal cancer being admitted for a urinary tract infection and general debility. Now palliative care, with plans for home hospice. Home hospice Pending placement Adult protective services to assess the home today and speak with the patient today. They will then assess home environment and notify us of when home is safe to discharge home to. Hospice is also reviewing home safety for their personnel to visit. Awaiting decisions on both hospice and adult protective services.
[2018-11-05] MEDS: ACETIC ACID TOP SCH ×2 (20:58)
[2018-11-05] MEDS: [UNRECOGNIZED DRUG - OTHER] TOP SCH ×2 (20:58)
[2018-11-06] MEDS: HYDROmorphone 2 MG Tab PO PRN ×5 (01:00→21:40)
[2018-11-06] MEDS: metroNIDAZOLE/Normal Saline 500 MG in Premix Bag 1 BAG IV SCH ×4 (03:32→21:41)
[2018-11-06] MEDS: Insulin Aspart 100 Units/ML 3 ML Pen SUBCUT SCH ×3 (08:03→18:08)
[2018-11-06] MEDS: TRELEGY ELLIPTA PO SCH (08:50)
[2018-11-06] MEDS ORDERED: fentaNYL 25 MCG/HR Transdermal Patch TRDERM SCH (09:00)
[2018-11-06] MEDS ORDERED: fentaNYL 100 MCG/HR Transdermal Patch TRDERM SCH (09:00)
[2018-11-06] MEDS: Gabapentin 300 MG Cap PO SCH ×2 (09:21→21:40)
[2018-11-06] MEDS: Enoxaparin 40 MG/0.4 ML Syringe SUBCUT SCH ×2 (09:30→20:30)
[2018-11-06] MEDS: TRESIBA SUBCUT SCH (09:34)
[2018-11-06] MEDS: Sodium Hypochlorite 0.25% Soln 473 ML TOP SCH (10:05)
[2018-11-06] MEDS ORDERED: fentaNYL 100 MCG/2 ML SDV IVPUSH SCH (11:00)
--- NOTE | 2018-11-06 12:12 | PCM.PN ---
- General Info Date of Service: 11/06/18 Subjective Update: Stable, patient is requiring/asking for his pain medications on the dot show slightly increased fentanyl patch dosing to see if this better controls his pain. - Patient Data Vitals - Most Recent: Last Vital Signs Temp 36.9 C 11/06/18 08:00 Pulse 96 11/06/18 08:00 Resp 17 11/06/18 08:00 BP 90/51 L 11/06/18 08:00 Pulse Ox 98 11/06/18 08:00 Weight - Most Recent: 83 kg I&O - Last 24 Hours: Intake & Output 11/05/18 11/06/18 11/06/18 22:59 06:59 14:59 Intake Total 300 700 50 Output Total 550 100 Balance -250 600 50 Lab Results Last 24 Hours: Laboratory Results - last 24 hr 11/05/18 11/06/18 11/06/18 Range/Units 16:27 05:53 11:25 POC Glucose 118 H 166 H 118 H (60-110) mg/dL Med Orders - Current: Current Medications Sterile Water 114 ml/ Acetic (Acid 6 ml) 0 ml TOP BEDTIME [facility] Last Admin: 11/05/18 20:58 Dose: 1 bottle Enoxaparin Sodium (Lovenox) 40 mg SUBCUT Q12H [facility] Last Admin: 11/06/18 09:30 Dose: Not Given Fentanyl (Duragesic) 100 mcg TRDERM Q72H [facility] Last Admin: 11/06/18 09:48 Dose: 100 mcg Fentanyl (Sublimaze) 50 mcg IVPUSH ONETIME [facility] Gabapentin (Neurontin) 300 mg PO BID [facility] Last Admin: 11/06/18 09:21 Dose: 300 mg Hydromorphone HCl (Dilaudid) 4 mg PO Q4H PRN PRN Reason: Pain Last Admin: 11/06/18 10:06 Dose: 4 mg Levofloxacin/Dextrose 750 mg/ (Premix) 150 mls @ 100 mls/hr IV Q24H [facility] Last Admin: 11/05/18 23:25 Dose: 100 mls/hr Metronidazole 500 mg/ Premix 100 mls @ 100 mls/hr IV Q6H [facility] Last Admin: 11/06/18 09:23 Dose: 100 mls/hr Insulin Aspart (Novolog) 0 unit SUBCUT TIDAC [facility]; Protocol Last Admin: 11/06/18 11:50 Dose: Not Given Ondansetron HCl (Zofran) 4 mg IVPUSH Q4H PRN PRN Reason: Nausea Last Admin: 11/03/18 08:33 Dose: 4 mg Trelegy Ellipta 1 each PO DAILY [facility] Last Admin: 11/06/18 08:50 Dose: 1 each Tresiba 0 each SUBCUT DAILY [facility] Last Admin: 11/06/18 09:34 Dose: 1 each Sodium Hypochlorite (Dakin's 1/2 Strength) 0 ml TOP DAILY [facility] Last Admin: 11/06/18 10:05 Dose: 1 applic Discontinued Medications Atorvastatin Calcium (Lipitor) 40 mg PO DAILY [facility] Last Admin: 10/30/18 10:31 Dose: 40 mg Enoxaparin Sodium (Lovenox) 80 mg SUBCUT Q12H [facility] Last Admin: 11/04/18 09:02 Dose: Not Given Enoxaparin Sodium (Lovenox) 40 mg SUBCUT Q12H [facility] Last Admin: 11/04/18 20:52 Dose: 40 mg Fentanyl (Duragesic) 100 mcg TRDERM Q72H [facility] Stop: 11/06/18 08:59 Last Admin: 11/04/18 02:50 Dose: 100 mcg Fentanyl (Duragesic) 25 mcg TRDERM Q72H [facility] Stop: 11/06/18 08:59 Last Admin: 11/04/18 09:45 Dose: 25 mcg Fentanyl (Duragesic) 25 mcg TRDERM Q72H [facility] Last Admin: 11/06/18 09:45 Dose: 25 mcg Gabapentin (Neurontin) 300 mg PO DAILY [facility] Last Admin: 10/31/18 09:06 Dose: 300 mg Hydromorphone HCl (Dilaudid) 2 mg PO Q4H PRN PRN Reason: Pain Last Admin: 11/04/18 09:07 Dose: 2 mg Vancomycin HCl 1.5 gm/ Sodium (Chloride) 500 mls @ 333.333 mls/hr IV Q12H [facility] Last Admin: 10/30/18 00:12 Dose: 333.333 mls/hr Sodium Chloride (Normal Saline) 1,000 mls @ 125 mls/hr IV ASDIRECTED [facility] Last Admin: 10/30/18 07:11 Dose: 125 mls/hr Metronidazole 500 mg/ Premix 100 mls @ 100 mls/hr IV QID [facility] Last Admin: 10/31/18 15:22 Dose: 100 mls/hr Loperamide HCl (Imodium) 0 mg PO ASDIRECTED PRN PRN Reason: Diarrhea Miscellaneous Information (Remove Patch) 1 ea TRDERM 11/06/18@0900 [facility] Stop: 11/06/18 09:01 Last Admin: 11/06/18 09:38 Dose: 1 ea Non-Formulary Medication (Fentanyl [Fentanyl]) 1 patch TD Q72H PRN PRN Reason: Pain Non-Formulary Medication (Insulin Degludec [Tresiba]) 30 units INJECT ASDIRECTED [facility] Tresiba 30 each SUBCUT DAILY [facility] Last Admin: 10/30/18 10:35 Dose: 30 each Acetic Acid 0.25% (Solution) 0 each TOP BEDTIME [facility] Tresiba 1 each SUBCUT DAILY [facility] Last Admin: 11/02/18 13:00 Dose: Not Given Tresiba 0 each SUBCUT DAILY [facility] Last Admin: 11/04/18 09:02 Dose: 1 each Vancomycin HCl (Pharmacy To Dose - Vancomycin) 1 dose .XX ASDIRECTED [facility] - Exam Lungs: Clear to Auscultation, Normal Respiratory Effort Cardiovascular: Regular Rate, Regular Rhythm - Problem List Review Problem List Initiated/Reviewed/Updated: Yes - My Orders Last 24 Hours: My Active Orders 11/06/18 11:00 fentaNYL [Sublimaze] 50 mcg IVPUSH ONETIME - Plan Plan:: 63 -year-old male with significant medical history of metastatic colorectal cancer being admitted for a urinary tract infection and general debility. Now palliative care, with plans for home hospice. Adult protective services have stated that neither the patient or the family can return to the home as it is unlivable after assessment today. As such patient will be required to remain on the floor up until Medicaid paperwork can be started and disposition to a long-term care facility can be placed for this patient. For the patient's pain control shall increase the fentanyl from 125 Mcg to 150 mcg q72hr and see if this controls his pain better.
[2018-11-06] MEDS ORDERED: fentaNYL 50 MCG/HR Transdermal Patch TRDERM SCH (12:15)
[2018-11-06] MEDS: ACETIC ACID TOP SCH ×2 (21:55)
[2018-11-06] MEDS: [UNRECOGNIZED DRUG - OTHER] TOP SCH ×2 (21:55)
[2018-11-06] MEDS: Levofloxacin/Dextrose 5%-Water 750 MG in Premix Bag 1 BAG IV SCH (22:52)
[2018-11-07] MEDS: HYDROmorphone 2 MG Tab PO PRN ×3 (02:14→20:57)
[2018-11-07] MEDS: metroNIDAZOLE/Normal Saline 500 MG in Premix Bag 1 BAG IV SCH ×4 (03:33→20:56)
[2018-11-07] MEDS: Insulin Aspart 100 Units/ML 3 ML Pen SUBCUT SCH ×3 (06:44→17:34)
[2018-11-07] MEDS: TRESIBA SUBCUT SCH (08:27)
[2018-11-07] MEDS: Gabapentin 300 MG Cap PO SCH ×2 (08:28→20:56)
[2018-11-07] MEDS: TRELEGY ELLIPTA PO SCH (08:49)
[2018-11-07] MEDS: Sodium Hypochlorite 0.25% Soln 473 ML TOP SCH (09:00)
[2018-11-07] MEDS: Enoxaparin 40 MG/0.4 ML Syringe SUBCUT SCH ×2 (09:01→20:57)
--- NOTE | 2018-11-07 19:24 | PCM.PN ---
- General Info Date of Service: 11/07/18 Subjective Update: Stable; no acute changes - Patient Data Vitals - Most Recent: Last Vital Signs Temp 36.2 C 11/07/18 11:00 Pulse 104 H 11/07/18 11:00 Resp 16 11/07/18 11:00 BP 98/51 L 11/07/18 11:00 Pulse Ox 97 11/07/18 11:00 Weight - Most Recent: 83 kg I&O - Last 24 Hours: Intake & Output 11/07/18 11/07/18 11/07/18 06:59 14:59 22:59 Intake Total 200 1200 Output Total 100 270 Balance 100 930 Lab Results Last 24 Hours: Laboratory Results - last 24 hr 11/07/18 11/07/18 11/07/18 Range/Units 06:29 11:33 16:29 POC Glucose 76 100 62 (60-110) mg/dL Med Orders - Current: Current Medications Sterile Water 114 ml/ Acetic (Acid 6 ml) 0 ml TOP BEDTIME [facility] Last Admin: 11/06/18 21:55 Dose: 1 bottle Enoxaparin Sodium (Lovenox) 40 mg SUBCUT Q12H [facility] Last Admin: 11/07/18 09:01 Dose: Not Given Fentanyl (Duragesic) 100 mcg TRDERM Q72H [facility] Last Admin: 11/06/18 09:48 Dose: 100 mcg Fentanyl (Duragesic) 50 mcg TRDERM Q72H [facility] Last Admin: 11/06/18 12:51 Dose: 50 mcg Gabapentin (Neurontin) 300 mg PO BID [facility] Last Admin: 11/07/18 08:28 Dose: 300 mg Hydromorphone HCl (Dilaudid) 8 mg PO Q4H PRN PRN Reason: Pain Levofloxacin/Dextrose 750 mg/ (Premix) 150 mls @ 100 mls/hr IV Q24H [facility] Last Admin: 11/06/18 22:52 Dose: 100 mls/hr Metronidazole 500 mg/ Premix 100 mls @ 100 mls/hr IV Q6H [facility] Last Admin: 11/07/18 15:17 Dose: 100 mls/hr Insulin Aspart (Novolog) 0 unit SUBCUT TIDAC [facility]; Protocol Last Admin: 11/07/18 17:34 Dose: Not Given Ondansetron HCl (Zofran) 4 mg IVPUSH Q4H PRN PRN Reason: Nausea Last Admin: 11/03/18 08:33 Dose: 4 mg Trelegy Ellipta 1 each PO DAILY [facility] Last Admin: 11/07/18 08:49 Dose: 1 each Tresiba 0 each SUBCUT DAILY [facility] Last Admin: 11/07/18 08:27 Dose: 1 each Sodium Hypochlorite (Dakin's 1/2 Strength) 0 ml TOP DAILY [facility] Last Admin: 11/07/18 09:00 Dose: 1 applic Discontinued Medications Atorvastatin Calcium (Lipitor) 40 mg PO DAILY [facility] Last Admin: 10/30/18 10:31 Dose: 40 mg Enoxaparin Sodium (Lovenox) 80 mg SUBCUT Q12H [facility] Last Admin: 11/04/18 09:02 Dose: Not Given Enoxaparin Sodium (Lovenox) 40 mg SUBCUT Q12H [facility] Last Admin: 11/04/18 20:52 Dose: 40 mg Fentanyl (Duragesic) 100 mcg TRDERM Q72H [facility] Stop: 11/06/18 08:59 Last Admin: 11/04/18 02:50 Dose: 100 mcg Fentanyl (Duragesic) 25 mcg TRDERM Q72H [facility] Stop: 11/06/18 08:59 Last Admin: 11/04/18 09:45 Dose: 25 mcg Fentanyl (Duragesic) 25 mcg TRDERM Q72H [facility] Last Admin: 11/06/18 09:45 Dose: 25 mcg Fentanyl (Sublimaze) 50 mcg IVPUSH ONETIME [facility] Gabapentin (Neurontin) 300 mg PO DAILY [facility] Last Admin: 10/31/18 09:06 Dose: 300 mg Hydromorphone HCl (Dilaudid) 2 mg PO Q4H PRN PRN Reason: Pain Last Admin: 11/04/18 09:07 Dose: 2 mg Hydromorphone HCl (Dilaudid) 4 mg PO Q4H PRN PRN Reason: Pain Last Admin: 11/07/18 08:28 Dose: 4 mg Vancomycin HCl 1.5 gm/ Sodium (Chloride) 500 mls @ 333.333 mls/hr IV Q12H [facility] Last Admin: 10/30/18 00:12 Dose: 333.333 mls/hr Sodium Chloride (Normal Saline) 1,000 mls @ 125 mls/hr IV ASDIRECTED [facility] Last Admin: 10/30/18 07:11 Dose: 125 mls/hr Metronidazole 500 mg/ Premix 100 mls @ 100 mls/hr IV QID [facility] Last Admin: 10/31/18 15:22 Dose: 100 mls/hr Loperamide HCl (Imodium) 0 mg PO ASDIRECTED PRN PRN Reason: Diarrhea Miscellaneous Information (Remove Patch) 1 ea TRDERM 11/06/18@0900 [facility] Stop: 11/06/18 09:01 Last Admin: 11/06/18 09:38 Dose: 1 ea Non-Formulary Medication (Fentanyl [Fentanyl]) 1 patch TD Q72H PRN PRN Reason: Pain Non-Formulary Medication (Insulin Degludec [Tresiba]) 30 units INJECT ASDIRECTED [facility] Tresiba 30 each SUBCUT DAILY [facility] Last Admin: 10/30/18 10:35 Dose: 30 each Acetic Acid 0.25% (Solution) 0 each TOP BEDTIME [facility] Tresiba 1 each SUBCUT DAILY [facility] Last Admin: 11/02/18 13:00 Dose: Not Given Tresiba 0 each SUBCUT DAILY [facility] Last Admin: 11/04/18 09:02 Dose: 1 each Vancomycin HCl (Pharmacy To Dose - Vancomycin) 1 dose .XX ASDIRECTED [facility] - Exam Lungs: Clear to Auscultation, Normal Respiratory Effort Cardiovascular: Regular Rate, Regular Rhythm - Problem List Review Problem List Initiated/Reviewed/Updated: Yes - My Orders Last 24 Hours: My Active Orders 11/07/18 11:01 HYDROmorphone [Dilaudid] 8 mg PO Q4H PRN - Plan Plan:: 63 -year-old male with significant medical history of metastatic colorectal cancer being admitted for a urinary tract infection and general debility. Now palliative care, with plans for home hospice. Adult protective services have stated that neither the patient or the family can return to the home as it is unlivable after assessment today. As such patient will be required to remain on the floor up until Medicaid paperwork can be started and disposition to a long-term care facility can be placed for this patient. For the patient's pain control doing better with the increase in fentanyl dose
[2018-11-07] MEDS: Levofloxacin/Dextrose 5%-Water 750 MG in Premix Bag 1 BAG IV SCH (23:15)
[2018-11-08] MEDS: [UNRECOGNIZED DRUG - OTHER] TOP SCH ×2 (01:08)
[2018-11-08] MEDS: ACETIC ACID TOP SCH ×2 (01:08)
[2018-11-08] MEDS: metroNIDAZOLE/Normal Saline 500 MG in Premix Bag 1 BAG IV SCH ×3 (03:44→15:52)
[2018-11-08] MEDS: HYDROmorphone 2 MG Tab PO PRN ×2 (05:49→09:59)
[2018-11-08] MEDS: Insulin Aspart 100 Units/ML 3 ML Pen SUBCUT SCH ×3 (06:49→17:33)
[2018-11-08] MEDS: TRELEGY ELLIPTA PO SCH (09:16)
[2018-11-08] MEDS: Gabapentin 300 MG Cap PO SCH (09:46)
[2018-11-08] MEDS: Enoxaparin 40 MG/0.4 ML Syringe SUBCUT SCH (10:07)
[2018-11-08] MEDS: TRESIBA SUBCUT SCH (11:11)
[2018-11-08] MEDS: Sodium Hypochlorite 0.25% Soln 473 ML TOP SCH (11:45)
[2018-11-08 12:27] LABS: CHLORIDE,CL 100 mmol/L (98-107); SODIUM,NA 129 mmol/L (136-148)
--- NOTE | 2018-11-08 12:40 | PCM.PN ---
- General Info Date of Service: 11/08/18 Subjective Update: Patient does appear to be doing worse, possibility of acute decline, patient having audible crackles and rales of his airways. - Patient Data Vitals - Most Recent: Last Vital Signs Temp 36.3 C 11/08/18 10:23 Pulse 124 H 11/08/18 10:23 Resp 12 11/08/18 10:23 BP 87/47 L 11/08/18 10:23 Pulse Ox 92 L 11/08/18 10:23 Weight - Most Recent: 83 kg I&O - Last 24 Hours: Intake & Output 11/07/18 11/08/18 11/08/18 22:59 06:59 14:59 Intake Total 1200 480 Output Total 270 150 Balance 930 330 Lab Results Last 24 Hours: Laboratory Results - last 24 hr 11/07/18 11/08/18 11/08/18 Range/Units 16:29 06:30 07:21 WBC (4.0-11.0) K/uL RBC (4.50-5.90) M/uL Hgb (13.0-17.0) g/dL Hct (38.0-50.0) % MCV (80.0-98.0) fL MCH (27.0-32.0) pg MCHC (31.0-37.0) g/dL RDW Std Deviation (28.0-62.0) fl RDW Coeff of Nery (11.0-15.0) % Plt Count (150-400) K/uL Add Manual Diff Neutrophils % (Manual) (48.0-80.0) % Band Neutrophils % % Lymphocytes % (Manual) (16.0-40.0) % Monocytes % (Manual) (0.0-15.0) % Eosinophils % (Manual) (0.0-7.0) % Nucleated RBC % /100WBC Absolute Seg Neuts (1.4-5.7) Band Neutrophils # Lymphocytes # (Manual) (0.6-2.4) Monocytes # (Manual) (0.0-0.8) Eosinophils # (Manual) (0.0-0.7) Nucleated RBCs # K/uL POC Glucose 62 51 L 84 (60-110) mg/dL 11/08/18 11/08/18 Range/Units 10:10 11:36 WBC 26.17 H (4.0-11.0) K/uL RBC 4.87 (4.50-5.90) M/uL Hgb 10.0 L (13.0-17.0) g/dL Hct 32.8 L (38.0-50.0) % MCV 67.4 L (80.0-98.0) fL MCH 20.5 L (27.0-32.0) pg MCHC 30.5 L (31.0-37.0) g/dL RDW Std Deviation 56.3 (28.0-62.0) fl RDW Coeff of Nery 25 H (11.0-15.0) % Plt Count 69 L (150-400) K/uL Add Manual Diff YES Neutrophils % (Manual) 80 (48.0-80.0) % Band Neutrophils % 11 % Lymphocytes % (Manual) 2 L (16.0-40.0) % Monocytes % (Manual) 6 (0.0-15.0) % Eosinophils % (Manual) 1 (0.0-7.0) % Nucleated RBC % 0.4 /100WBC Absolute Seg Neuts 20.9 H (1.4-5.7) Band Neutrophils # 2.9 Lymphocytes # (Manual) 0.5 L (0.6-2.4) Monocytes # (Manual) 1.6 H (0.0-0.8) Eosinophils # (Manual) 0.3 (0.0-0.7) Nucleated RBCs # 0 K/uL POC Glucose 92 (60-110) mg/dL Med Orders - Current: Current Medications Sterile Water 114 ml/ Acetic (Acid 6 ml) 0 ml TOP BEDTIME [facility] Last Admin: 11/08/18 01:08 Dose: 1 bottle Enoxaparin Sodium (Lovenox) 40 mg SUBCUT Q12H [facility] Last Admin: 11/08/18 10:07 Dose: Not Given Fentanyl (Duragesic) 100 mcg TRDERM Q72H [facility] Last Admin: 11/06/18 09:48 Dose: 100 mcg Fentanyl (Duragesic) 50 mcg TRDERM Q72H [facility] Last Admin: 11/06/18 12:51 Dose: 50 mcg Gabapentin (Neurontin) 300 mg PO BID [facility] Last Admin: 11/08/18 09:46 Dose: 300 mg Hydromorphone HCl (Dilaudid) 8 mg PO Q4H PRN PRN Reason: Pain Last Admin: 11/08/18 09:59 Dose: 8 mg Levofloxacin/Dextrose 750 mg/ (Premix) 150 mls @ 100 mls/hr IV Q24H [facility] Last Admin: 11/07/18 23:15 Dose: 100 mls/hr Metronidazole 500 mg/ Premix 100 mls @ 100 mls/hr IV Q6H [facility] Last Admin: 11/08/18 09:45 Dose: 100 mls/hr Insulin Aspart (Novolog) 0 unit SUBCUT TIDAC [facility]; Protocol Last Admin: 11/08/18 12:07 Dose: Not Given Ondansetron HCl (Zofran) 4 mg IVPUSH Q4H PRN PRN Reason: Nausea Last Admin: 11/03/18 08:33 Dose: 4 mg Trelegy Ellipta 1 each PO DAILY [facility] Last Admin: 11/08/18 09:16 Dose: 1 each Tresiba 0 each SUBCUT DAILY [facility] Last Admin: 11/08/18 11:11 Dose: Not Given Sodium Hypochlorite (Dakin's 1/2 Strength) 0 ml TOP DAILY [facility] Last Admin: 11/08/18 11:45 Dose: 1 applic Discontinued Medications Atorvastatin Calcium (Lipitor) 40 mg PO DAILY [facility] Last Admin: 10/30/18 10:31 Dose: 40 mg Enoxaparin Sodium (Lovenox) 80 mg SUBCUT Q12H [facility] Last Admin: 11/04/18 09:02 Dose: Not Given Enoxaparin Sodium (Lovenox) 40 mg SUBCUT Q12H [facility] Last Admin: 11/04/18 20:52 Dose: 40 mg Fentanyl (Duragesic) 100 mcg TRDERM Q72H [facility] Stop: 11/06/18 08:59 Last Admin: 11/04/18 02:50 Dose: 100 mcg Fentanyl (Duragesic) 25 mcg TRDERM Q72H [facility] Stop: 11/06/18 08:59 Last Admin: 11/04/18 09:45 Dose: 25 mcg Fentanyl (Duragesic) 25 mcg TRDERM Q72H [facility] Last Admin: 11/06/18 09:45 Dose: 25 mcg Fentanyl (Sublimaze) 50 mcg IVPUSH ONETIME [facility] Gabapentin (Neurontin) 300 mg PO DAILY [facility] Last Admin: 10/31/18 09:06 Dose: 300 mg Hydromorphone HCl (Dilaudid) 2 mg PO Q4H PRN PRN Reason: Pain Last Admin: 11/04/18 09:07 Dose: 2 mg Hydromorphone HCl (Dilaudid) 4 mg PO Q4H PRN PRN Reason: Pain Last Admin: 11/07/18 08:28 Dose: 4 mg Vancomycin HCl 1.5 gm/ Sodium (Chloride) 500 mls @ 333.333 mls/hr IV Q12H [facility] Last Admin: 10/30/18 00:12 Dose: 333.333 mls/hr Sodium Chloride (Normal Saline) 1,000 mls @ 125 mls/hr IV ASDIRECTED [facility] Last Admin: 10/30/18 07:11 Dose: 125 mls/hr Metronidazole 500 mg/ Premix 100 mls @ 100 mls/hr IV QID [facility] Last Admin: 10/31/18 15:22 Dose: 100 mls/hr Loperamide HCl (Imodium) 0 mg PO ASDIRECTED PRN PRN Reason: Diarrhea Miscellaneous Information (Remove Patch) 1 ea TRDERM 11/06/18@0900 [facility] Stop: 11/06/18 09:01 Last Admin: 11/06/18 09:38 Dose: 1 ea Non-Formulary Medication (Fentanyl [Fentanyl]) 1 patch TD Q72H PRN PRN Reason: Pain Non-Formulary Medication (Insulin Degludec [Tresiba]) 30 units INJECT ASDIRECTED [facility] Tresiba 30 each SUBCUT DAILY [facility] Last Admin: 10/30/18 10:35 Dose: 30 each Acetic Acid 0.25% (Solution) 0 each TOP BEDTIME [facility] Tresiba 1 each SUBCUT DAILY [facility] Last Admin: 11/02/18 13:00 Dose: Not Given Tresiba 0 each SUBCUT DAILY [facility] Last Admin: 11/04/18 09:02 Dose: 1 each Vancomycin HCl (Pharmacy To Dose - Vancomycin) 1 dose .XX ASDIRECTED [facility] - Exam Quality Assessment: Supplemental Oxygen General: Alert, Oriented, Cooperative, Moderate Distress Lungs: Crackles, Rales, Rhonchi Cardiovascular: Regular Rate, Regular Rhythm - Problem List Review Problem List Initiated/Reviewed/Updated: Yes - My Orders Last 24 Hours: My Active Orders 11/08/18 11:02 CXR [Chest 1V Frontal] [CR] Routine 11/08/18 11:36 COMPREHENSIVE METABOLIC PN,CMP [CHEM] Stat - Plan Plan:: 63 -year-old male with significant medical history of metastatic colorectal cancer being admitted for a urinary tract infection and general debility. Now palliative care, with plans for home hospice. -I have ordered a CBC and CMP, and a chest x-ray to assess the acute changes of the patient had the Jason. I have asked the family to come in as there is the possibility the patient is acutely declining shall continue to monitor and discussed with family as results become available. Adult protective services have stated that neither the patient or the family can return to the home as it is unlivable after assessment today. As such patient will be required to remain on the floor up until Medicaid paperwork can be started and disposition to a long-term care facility can be placed for this patient. For the patient's pain control doing better with the increase in fentanyl dose
--- NOTE | 2018-11-08 13:35 | CR ---
Indication: Shortness of breath. Crackles. Technique: A single AP portable view of the chest was obtained. Comparison: None Findings: A right-sided Port-A-Cath is identified. Heart is normal in size. Increased interstitial opacities are identified bilaterally. Small bilateral pulmonary masses cannot be excluded. Impression: Cannot exclude bilateral pulmonary masses. No definite acute cardiopulmonary process. If further evaluation is warranted consideration should be given to a CT scan chest with contrast. Dictated by Sofya Giron MD @ Nov 08 2018 1:32PM Signed by Dr. Sofya Giron @ Nov 08 2018 1:33PM
[2018-11-08 16:34] VITALS: BP 75/43
[2018-11-08] MEDS ORDERED: Morphine Oral Concentrate 20 MG/ML 30 ML Bottle SL PRN (17:21)
[2018-11-08] MEDS ORDERED: Glycopyrrolate 0.2 MG/ML SDV IVPUSH SCH (17:30)
[2018-11-08] MEDS ORDERED: LORazepam 2 MG/ML SDV IVPUSH PRN (17:30)
[2018-11-08] MEDS ORDERED: Hyoscyamine 0.125 MG Tab.SL SL PRN (18:13)
[2018-11-08] MEDS ORDERED: Morphine 10 MG/0.5 ML Oral Syringe SL PRN (18:39)
--- NOTE | 2018-11-08 19:18 | PCM.DCSUM1 ---
<Herve Sanchez Z - Last Filed: 11/08/18 19:14> Discharge Summary - Hospital Course HPI Initial Comments: Discharge Summary Date of admission: 10/28/18 Date of expiration: 11/08/18 Admitting diagnosis: #1. Urinary tract infection #2. Metastatic rectal cancer #3. #4. #5. Discharge diagnoses: #1. Patient 11/08/18 at 1837. #2. #3. #4. #5. Hospitalization course: Patient was admitted secondary to urinary tract infection had a significant medical history of rectal cancer, urinary tract infection was treated with IV antibiotics, as the patient's stay progressed it became evident that the patient's pain symptoms and increasing decline was due to the spread of his metastatic cancer and to multiple organs as was evident based on imaging and laboratory evaluations. Patient was subsequently placed on hospice with pending disposition to [facility] after his Medicaid would go through. Patient however on 11/08/18 in the a.m. began to rapidly decline. Orders were placed for morphine more readily for air hunger, anticholinergics for his increased secretions/rattling, and Ativan for anxiety/agitation. Patient's declined quickened and he subsequently . Time of expiration was 1837. Diagnosis: Stroke: No Modified Flor Scale: No Symptoms at All Modified Jackson Scale Score: 0 - Discharge Data Discharge Date: 11/08/18 Discharge Disposition: 20 Condition: Fair - Patient Summary/Data Consults: Consultations 10/28/18 23:31 PT Evaluation and Treatment [CONS] Stat 10/30/18 08:31 Consult to Physical Therapy [PT Evaluation and Treatment] [CONS] Routine 11/03/18 11:52 Consult to Hospice [CONS] Routine - Discharge Plan Home Medications: Home Meds Acetaminophen 500 mg PO ASDIRECTED 10/28/18 [History] Empagliflozin [Jardiance] 25 mg PO DAILY 10/28/18 [History] Enoxaparin [Lovenox] 100 mg SUBCUT Q12H 10/28/18 [History] Finasteride 5 mg PO DAILY 10/28/18 [History] Fluticasone/Umeclidin/Vilanter [Trelegy Ellipta 100-62.5-25 MCG] 1 inh PO DAILY 10/28/18 [History] Gabapentin [Neurontin] 300 mg PO BID 10/28/18 [History] HYDROmorphone [Dilaudid] 2 mg PO Q4H PRN 10/28/18 [History] Insulin Degludec [Tresiba] 30 units INJECT DAILY 10/28/18 [History] Insulin Lispro [Humalog] See Protocol SUBCUT QID 10/28/18 [History] Potassium Bicarb/Potassium Chl [Potassium Chloride] 25 meq PO DAILY 10/28/18 [ History] Tamsulosin [Flomax] 0.4 mg PO DAILY 10/28/18 [History] Zaleplon 10 mg PO BEDTIME PRN 10/28/18 [History] atorvaSTATin [Lipitor] 40 mg PO DAILY 10/28/18 [History] fentaNYL [Fentanyl] 100 patch TD Q72H 10/28/18 [History] Patient Handouts: Gallbladder Eating Plan, Fat and Cholesterol Restricted Diet , [id number], Diabetes Mellitus and Nutrition Referrals: PCP,None [Primary Care Provider] - - Discharge Summary/Plan Comment DC Time >30 min.: No - Patient Data Vitals - Most Recent: Last Vital Signs Temp 36.6 C 11/08/18 16:00 Pulse 124 H 11/08/18 16:00 Resp 18 11/08/18 16:00 BP 75/43 L 11/08/18 16:00 Pulse Ox 92 L 11/08/18 17:48 Weight - Most Recent: 83 kg I&O - Last 24 hours: Intake & Output 11/08/18 11/08/18 11/08/18 06:59 14:59 22:59 Intake Total 480 320 Output Total 150 380 Balance 330 -60 Lab Results - Last 24 hrs: Laboratory Results - last 24 hr 11/08/18 11/08/18 11/08/18 Range/Units 06:30 07:21 10:10 WBC (4.0-11.0) K/uL RBC (4.50-5.90) M/uL Hgb (13.0-17.0) g/dL Hct (38.0-50.0) % MCV (80.0-98.0) fL MCH (27.0-32.0) pg MCHC (31.0-37.0) g/dL RDW Std Deviation (28.0-62.0) fl RDW Coeff of Nery (11.0-15.0) % Plt Count (150-400) K/uL Add Manual Diff Neutrophils % (Manual) (48.0-80.0) % Band Neutrophils % % Lymphocytes % (Manual) (16.0-40.0) % Monocytes % (Manual) (0.0-15.0) % Eosinophils % (Manual) (0.0-7.0) % Nucleated RBC % /100WBC Absolute Seg Neuts (1.4-5.7) Band Neutrophils # Lymphocytes # (Manual) (0.6-2.4) Monocytes # (Manual) (0.0-0.8) Eosinophils # (Manual) (0.0-0.7) Nucleated RBCs # K/uL Sodium (136-148) mmol/L Potassium (3.5-5.1) mmol/L Chloride (98-107) mmol/L Carbon Dioxide (21.0-32.0) mmol/L BUN (7.0-18.0) mg/dL Creatinine (0.8-1.3) mg/dL Est Cr Clr Drug Dosing mL/min Estimated GFR (MDRD) ml/min Glucose (74-106) mg/dL POC Glucose 51 L 84 92 (60-110) mg/dL Calcium (8.5-10.1) mg/dL Total Bilirubin (0.2-1.0) mg/dL ALT (14-63) IU/L Alkaline Phosphatase (46-116) U/L Total Protein (6.4-8.2) g/dL Albumin (3.4-5.0) g/dL Globulin (2.6-4.0) g/dL Albumin/Globulin Ratio (0.9-1.6) 11/08/18 11/08/18 11/08/18 Range/Units 11:36 11:36 11:39 WBC 26.17 H (4.0-11.0) K/uL RBC 4.87 (4.50-5.90) M/uL Hgb 10.0 L (13.0-17.0) g/dL Hct 32.8 L (38.0-50.0) % MCV 67.4 L (80.0-98.0) fL MCH 20.5 L (27.0-32.0) pg MCHC 30.5 L (31.0-37.0) g/dL RDW Std Deviation 56.3 (28.0-62.0) fl RDW Coeff of Nery 25 H (11.0-15.0) % Plt Count 69 L (150-400) K/uL Add Manual Diff YES Neutrophils % (Manual) 80 (48.0-80.0) % Band Neutrophils % 11 % Lymphocytes % (Manual) 2 L (16.0-40.0) % Monocytes % (Manual) 6 (0.0-15.0) % Eosinophils % (Manual) 1 (0.0-7.0) % Nucleated RBC % 0.4 /100WBC Absolute Seg Neuts 20.9 H (1.4-5.7) Band Neutrophils # 2.9 Lymphocytes # (Manual) 0.5 L (0.6-2.4) Monocytes # (Manual) 1.6 H (0.0-0.8) Eosinophils # (Manual) 0.3 (0.0-0.7) Nucleated RBCs # 0 K/uL Sodium 129 L (136-148) mmol/L Potassium 6.5 H (3.5-5.1) mmol/L Chloride 100 (98-107) mmol/L Carbon Dioxide 16.8 L (21.0-32.0) mmol/L BUN 66 H (7.0-18.0) mg/dL Creatinine 2.2 H (0.8-1.3) mg/dL Est Cr Clr Drug Dosing 31.82 mL/min Estimated GFR (MDRD) 30.6 ml/min Glucose 99 (74-106) mg/dL POC Glucose 102 (60-110) mg/dL Calcium 8.0 L (8.5-10.1) mg/dL Total Bilirubin 3.8 H (0.2-1.0) mg/dL ALT 29 (14-63) IU/L Alkaline Phosphatase 1163 H (46-116) U/L Total Protein 5.0 L (6.4-8.2) g/dL Albumin 1.5 L (3.4-5.0) g/dL Globulin 3.5 (2.6-4.0) g/dL Albumin/Globulin Ratio 0.4 L (0.9-1.6) 11/08/18 Range/Units 15:31 WBC (4.0-11.0) K/uL RBC (4.50-5.90) M/uL Hgb (13.0-17.0) g/dL Hct (38.0-50.0) % MCV (80.0-98.0) fL MCH (27.0-32.0) pg MCHC (31.0-37.0) g/dL RDW Std Deviation (28.0-62.0) fl RDW Coeff of Nery (11.0-15.0) % Plt Count (150-400) K/uL Add Manual Diff Neutrophils % (Manual) (48.0-80.0) % Band Neutrophils % % Lymphocytes % (Manual) (16.0-40.0) % Monocytes % (Manual) (0.0-15.0) % Eosinophils % (Manual) (0.0-7.0) % Nucleated RBC % /100WBC Absolute Seg Neuts (1.4-5.7) Band Neutrophils # Lymphocytes # (Manual) (0.6-2.4) Monocytes # (Manual) (0.0-0.8) Eosinophils # (Manual) (0.0-0.7) Nucleated RBCs # K/uL Sodium (136-148) mmol/L Potassium (3.5-5.1) mmol/L Chloride (98-107) mmol/L Carbon Dioxide (21.0-32.0) mmol/L BUN (7.0-18.0) mg/dL Creatinine (0.8-1.3) mg/dL Est Cr Clr Drug Dosing mL/min Estimated GFR (MDRD) ml/min Glucose (74-106) mg/dL POC Glucose 73 (60-110) mg/dL Calcium (8.5-10.1) mg/dL Total Bilirubin (0.2-1.0) mg/dL ALT (14-63) IU/L Alkaline Phosphatase (46-116) U/L Total Protein (6.4-8.2) g/dL Albumin (3.4-5.0) g/dL Globulin (2.6-4.0) g/dL Albumin/Globulin Ratio (0.9-1.6) Med Orders - Current: Current Medications Sterile Water 114 ml/ Acetic (Acid 6 ml) 0 ml TOP BEDTIME [facility] Last Admin: 11/08/18 01:08 Dose: 1 bottle Enoxaparin Sodium (Lovenox) 40 mg SUBCUT Q12H [facility] Last Admin: 11/08/18 10:07 Dose: Not Given Fentanyl (Duragesic) 100 mcg TRDERM Q72H [facility] Last Admin: 11/06/18 09:48 Dose: 100 mcg Fentanyl (Duragesic) 50 mcg TRDERM Q72H [facility] Last Admin: 11/06/18 12:51 Dose: 50 mcg Gabapentin (Neurontin) 300 mg PO BID [facility] Last Admin: 11/08/18 09:46 Dose: 300 mg Hydromorphone HCl (Dilaudid) 8 mg PO Q4H PRN PRN Reason: Pain Last Admin: 11/08/18 09:59 Dose: 8 mg Hyoscyamine (Hyomax-Sl) 0.125 mg SL Q4H PRN PRN Reason: Other Levofloxacin/Dextrose 750 mg/ (Premix) 150 mls @ 100 mls/hr IV Q24H [facility] Last Admin: 11/07/18 23:15 Dose: 100 mls/hr Metronidazole 500 mg/ Premix 100 mls @ 100 mls/hr IV Q6H [facility] Last Admin: 11/08/18 15:52 Dose: 100 mls/hr Insulin Aspart (Novolog) 0 unit SUBCUT TIDAC [facility]; Protocol Last Admin: 11/08/18 17:33 Dose: Not Given Lorazepam (Ativan) 1 mg IVPUSH Q1H PRN PRN Reason: Anxiety Last Admin: 11/08/18 18:31 Dose: 1 mg Morphine Sulfate (Morphine 10 Mg/0.5 Ml Oral Syringe) 5 mg SL Q2H PRN PRN Reason: dyspnea Ondansetron HCl (Zofran) 4 mg IVPUSH Q4H PRN PRN Reason: Nausea Last Admin: 11/03/18 08:33 Dose: 4 mg Trelegy Ellipta 1 each PO DAILY [facility] Last Admin: 11/08/18 09:16 Dose: 1 each Tresiba 0 each SUBCUT DAILY [facility] Last Admin: 11/08/18 11:11 Dose: Not Given Sodium Hypochlorite (Dakin's 1/2 Strength) 0 ml TOP DAILY [facility] Last Admin: 11/08/18 11:45 Dose: 1 applic Discontinued Medications Atorvastatin Calcium (Lipitor) 40 mg PO DAILY [facility] Last Admin: 10/30/18 10:31 Dose: 40 mg Enoxaparin Sodium (Lovenox) 80 mg SUBCUT Q12H [facility] Last Admin: 11/04/18 09:02 Dose: Not Given Enoxaparin Sodium (Lovenox) 40 mg SUBCUT Q12H [facility] Last Admin: 11/04/18 20:52 Dose: 40 mg Fentanyl (Duragesic) 100 mcg TRDERM Q72H [facility] Stop: 11/06/18 08:59 Last Admin: 11/04/18 02:50 Dose: 100 mcg Fentanyl (Duragesic) 25 mcg TRDERM Q72H [facility] Stop: 11/06/18 08:59 Last Admin: 11/04/18 09:45 Dose: 25 mcg Fentanyl (Duragesic) 25 mcg TRDERM Q72H [facility] Last Admin: 11/06/18 09:45 Dose: 25 mcg Fentanyl (Sublimaze) 50 mcg IVPUSH ONETIME [facility] Gabapentin (Neurontin) 300 mg PO DAILY [facility] Last Admin: 10/31/18 09:06 Dose: 300 mg Glycopyrrolate (Robinul) 0.2 mg IVPUSH Q8H [facility] Last Admin: 11/08/18 18:39 Dose: Not Given Hydromorphone HCl (Dilaudid) 2 mg PO Q4H PRN PRN Reason: Pain Last Admin: 11/04/18 09:07 Dose: 2 mg Hydromorphone HCl (Dilaudid) 4 mg PO Q4H PRN PRN Reason: Pain Last Admin: 11/07/18 08:28 Dose: 4 mg Vancomycin HCl 1.5 gm/ Sodium (Chloride) 500 mls @ 333.333 mls/hr IV Q12H [facility] Last Admin: 10/30/18 00:12 Dose: 333.333 mls/hr Sodium Chloride (Normal Saline) 1,000 mls @ 125 mls/hr IV ASDIRECTED [facility] Last Admin: 10/30/18 07:11 Dose: 125 mls/hr Metronidazole 500 mg/ Premix 100 mls @ 100 mls/hr IV QID [facility] Last Admin: 10/31/18 15:22 Dose: 100 mls/hr Loperamide HCl (Imodium) 0 mg PO ASDIRECTED PRN PRN Reason: Diarrhea Miscellaneous Information (Remove Patch) 1 ea TRDERM 11/06/18@0900 [facility] Stop: 11/06/18 09:01 Last Admin: 11/06/18 09:38 Dose: 1 ea Morphine Sulfate (Morphine 20 Mg/Ml Soln) 5 mg SL Q2H PRN PRN Reason: dyspnea Non-Formulary Medication (Fentanyl [Fentanyl]) 1 patch TD Q72H PRN PRN Reason: Pain Non-Formulary Medication (Insulin Degludec [Tresiba]) 30 units INJECT ASDIRECTED [facility] Tresiba 30 each SUBCUT DAILY [facility] Last Admin: 10/30/18 10:35 Dose: 30 each Acetic Acid 0.25% (Solution) 0 each TOP BEDTIME [facility] Tresiba 1 each SUBCUT DAILY [facility] Last Admin: 11/02/18 13:00 Dose: Not Given Tresiba 0 each SUBCUT DAILY [facility] Last Admin: 11/04/18 09:02 Dose: 1 each Vancomycin HCl (Pharmacy To Dose - Vancomycin) 1 dose .XX ASDIRECTED [facility] <Ignacio Sorto - Last Filed: 11/10/18 14:29> Discharge Summary - Patient Summary/Data Consults: Consultations 10/28/18 23:31 PT Evaluation and Treatment [CONS] Stat 10/30/18 08:31 Consult to Physical Therapy [PT Evaluation and Treatment] [CONS] Routine 11/03/18 11:52 Consult to Hospice [CONS] Routine - Patient Data Vitals - Most Recent: Last Vital Signs Temp 36.6 C 11/08/18 16:00 Pulse 124 H 11/08/18 16:00 Resp 18 11/08/18 16:00 BP 75/43 L 11/08/18 16:00 Pulse Ox 92 L 11/08/18 17:48 Med Orders - Current: Current Medications Discontinued Medications Atorvastatin Calcium (Lipitor) 40 mg PO DAILY [facility] Last Admin: 10/30/18 10:31 Dose: 40 mg Sterile Water 114 ml/ Acetic (Acid 6 ml) 0 ml TOP BEDTIME [facility] Last Admin: 11/08/18 01:08 Dose: 1 bottle Enoxaparin Sodium (Lovenox) 80 mg SUBCUT Q12H [facility] Last Admin: 11/04/18 09:02 Dose: Not Given Enoxaparin Sodium (Lovenox) 40 mg SUBCUT Q12H [facility] Last Admin: 11/04/18 20:52 Dose: 40 mg Enoxaparin Sodium (Lovenox) 40 mg SUBCUT Q12H [facility] Last Admin: 11/08/18 10:07 Dose: Not Given Fentanyl (Duragesic) 100 mcg TRDERM Q72H [facility] Stop: 11/06/18 08:59 Last Admin: 11/04/18 02:50 Dose: 100 mcg Fentanyl (Duragesic) 25 mcg TRDERM Q72H [facility] Stop: 11/06/18 08:59 Last Admin: 11/04/18 09:45 Dose: 25 mcg Fentanyl (Duragesic) 100 mcg TRDERM Q72H [facility] Last Admin: 11/06/18 09:48 Dose: 100 mcg Fentanyl (Duragesic) 25 mcg TRDERM Q72H [facility] Last Admin: 11/06/18 09:45 Dose: 25 mcg Fentanyl (Sublimaze) 50 mcg IVPUSH ONETIME [facility] Fentanyl (Duragesic) 50 mcg TRDERM Q72H [facility] Last Admin: 11/06/18 12:51 Dose: 50 mcg Gabapentin (Neurontin) 300 mg PO DAILY [facility] Last Admin: 10/31/18 09:06 Dose: 300 mg Gabapentin (Neurontin) 300 mg PO BID [facility] Last Admin: 11/08/18 09:46 Dose: 300 mg Glycopyrrolate (Robinul) 0.2 mg IVPUSH Q8H [facility] Last Admin: 11/08/18 18:39 Dose: Not Given Hydromorphone HCl (Dilaudid) 2 mg PO Q4H PRN PRN Reason: Pain Last Admin: 11/04/18 09:07 Dose: 2 mg Hydromorphone HCl (Dilaudid) 4 mg PO Q4H PRN PRN Reason: Pain Last Admin: 11/07/18 08:28 Dose: 4 mg Hydromorphone HCl (Dilaudid) 8 mg PO Q4H PRN PRN Reason: Pain Last Admin: 11/08/18 09:59 Dose: 8 mg Hyoscyamine (Hyomax-Sl) 0.125 mg SL Q4H PRN PRN Reason: Other Levofloxacin/Dextrose 750 mg/ (Premix) 150 mls @ 100 mls/hr IV Q24H [facility] Last Admin: 11/07/18 23:15 Dose: 100 mls/hr Vancomycin HCl 1.5 gm/ Sodium (Chloride) 500 mls @ 333.333 mls/hr IV Q12H [facility] Last Admin: 10/30/18 00:12 Dose: 333.333 mls/hr Sodium Chloride (Normal Saline) 1,000 mls @ 125 mls/hr IV ASDIRECTED [facility] Last Admin: 10/30/18 07:11 Dose: 125 mls/hr Metronidazole 500 mg/ Premix 100 mls @ 100 mls/hr IV QID [facility] Last Admin: 10/31/18 15:22 Dose: 100 mls/hr Metronidazole 500 mg/ Premix 100 mls @ 100 mls/hr IV Q6H [facility] Last Admin: 11/08/18 15:52 Dose: 100 mls/hr Insulin Aspart (Novolog) 0 unit SUBCUT TIDAC [facility]; Protocol Last Admin: 11/08/18 17:33 Dose: Not Given Loperamide HCl (Imodium) 0 mg PO ASDIRECTED PRN PRN Reason: Diarrhea Lorazepam (Ativan) 1 mg IVPUSH Q1H PRN PRN Reason: Anxiety Last Admin: 11/08/18 18:31 Dose: 1 mg Miscellaneous Information (Remove Patch) 1 ea TRDERM 11/06/18@0900 [facility] Stop: 11/06/18 09:01 Last Admin: 11/06/18 09:38 Dose: 1 ea Morphine Sulfate (Morphine 20 Mg/Ml Soln) 5 mg SL Q2H PRN PRN Reason: dyspnea Morphine Sulfate (Morphine 10 Mg/0.5 Ml Oral Syringe) 5 mg SL Q2H PRN PRN Reason: dyspnea Non-Formulary Medication (Fentanyl [Fentanyl]) 1 patch TD Q72H PRN PRN Reason: Pain Non-Formulary Medication (Insulin Degludec [Tresiba]) 30 units INJECT ASDIRECTED [facility] Ondansetron HCl (Zofran) 4 mg IVPUSH Q4H PRN PRN Reason: Nausea Last Admin: 11/03/18 08:33 Dose: 4 mg Trelegy Ellipta 1 each PO DAILY [facility] Last Admin: 11/08/18 09:16 Dose: 1 each Tresiba 30 each SUBCUT DAILY [facility] Last Admin: 10/30/18 10:35 Dose: 30 each Acetic Acid 0.25% (Solution) 0 each TOP BEDTIME [facility] Tresiba 1 each SUBCUT DAILY [facility] Last Admin: 11/02/18 13:00 Dose: Not Given Tresiba 0 each SUBCUT DAILY [facility] Last Admin: 11/04/18 09:02 Dose: 1 each Tresiba 0 each SUBCUT DAILY [facility] Last Admin: 11/08/18 11:11 Dose: Not Given Sodium Hypochlorite (Dakin's 1/2 Strength) 0 ml TOP DAILY [facility] Last Admin: 11/08/18 11:45 Dose: 1 applic Vancomycin HCl (Pharmacy To Dose - Vancomycin) 1 dose .XX ASDIRECTED [facility] - Free Text/Narrative Note: I have seen and evaluated the patient. I have discussed findings and treatment plan with the resident. I agree with the assessment and plan outlined in the following note.
== END 2018-11-08 21:15 | disposition expired | DRG 698 ==
LOC: MW.ED 21:32 → MW.MS 23:44
PROVIDERS: ADMIT Internal Medicine; ATTEND Internal Medicine
DX: T83.511A Infection and inflammatory reaction due to indwelling urethral catheter, initial encounter (principal); L89.154 Pressure ulcer of sacral region, stage 4; C19 Malignant neoplasm of rectosigmoid junction; C78.7 Secondary malignant neoplasm of liver and intrahepatic bile duct; C79.51 Secondary malignant neoplasm of bone; C79.11 Secondary malignant neoplasm of bladder; Z66 Do not resuscitate; Z51.5 Encounter for palliative care; N13.8 Other obstructive and reflux uropathy; C78.02 Secondary malignant neoplasm of left lung; C78.01 Secondary malignant neoplasm of right lung; C79.89 Secondary malignant neoplasm of other specified sites; T76.01XA Adult neglect or abandonment, suspected, initial encounter; N17.9 Acute kidney failure, unspecified; E87.1 Hypo-osmolality and hyponatremia; E46 Unspecified protein-calorie malnutrition; N39.0 Urinary tract infection, site not specified; B96.20 Unspecified Escherichia coli [E. coli] as the cause of diseases classified elsewhere; Y84.6 Urinary catheterization as the cause of abnormal reaction of the patient, or of later complication, without mention of misadventure at the time of the procedure; R62.7 Adult failure to thrive; F41.9 Anxiety disorder, unspecified; I10 Essential (primary) hypertension; J44.9 Chronic obstructive pulmonary disease, unspecified; E78.5 Hyperlipidemia, unspecified; K81.9 Cholecystitis, unspecified; E11.649 Type 2 diabetes mellitus with hypoglycemia without coma; R19.7 Diarrhea, unspecified; R53.1 Weakness; H54.7 Unspecified visual loss; Z68.29 Body mass index [BMI] 29.0-29.9, adult; Z79.899 Other long term (current) drug therapy; Z86.718 Personal history of other venous thrombosis and embolism; Z88.6 Allergy status to analgesic agent; Z79.4 Long term (current) use of insulin; Z79.01 Long term (current) use of anticoagulants; Z96.649 Presence of unspecified artificial hip joint; Z79.891 Long term (current) use of opiate analgesic; Z93.3 Colostomy status
CPT/HCPCS: 36415; 71045; 71045-26; 71250; 71250-26; 74176; 74176-26; 80053; 81001; 82962; 85025; 85610; 87040; 87046; 87086; 87088; 87186; 87324; 87899; 94640; 96365; 97161-GP; 97530-GP; 99284; 99285-25; A9270-GY; J1650; J1815-GY; J1956; J2060; J2405; J3370; J3490; J7040